=== PATIENT | male | born 1970 | race Caucasian/White ===

== ENCOUNTER 2017-02-02 22:49 | Emergency (ER) | payer MEDICAID ==
[~2017-02-02 22:49] MED LIST: ATA25 PO; ATI1 PO; ATIVAN0.5 M1; ATIVAN0.5 M1 PO; CELEXA10 MG; COZ25 PO; COZ50 PO; DIL100 PO; DILANTIN100 MG; DILANTIN100 MG PO; FOL1 PO; HYDROXYZINE HCL25 MG PO; KEP500 PO; KEPPRA500 MG PO; LAC PO; LEVAQUIN750 MG PO; LIB25 PO; LORAZEPAM1 MG PO; LOSARTAN POTASS25 M1 PO; MOTRIN800 MG PO; OMEPRAZOLE40 M1 PO; PHENYTOIN100 M1 PO; PRI20; PRI20 PO; PRILOSEC20 MG PO; PROAIR HFA0.09 MG/A1; PROVENTIL0.09 MG/A1; RANITIDINE 7575 MG PO; RANITIDINE75 MG PO; THI100 PO; ZES10 PO
[2017-02-03 06:20] VITALS: BP 117/77
== END 2017-02-03 06:20 | disposition home or self-care (01) ==
LOC: ED 22:49
DX: F10.229 Alcohol dependence with intoxication, unspecified (principal); I10 Essential (primary) hypertension

== ENCOUNTER 2017-02-14 18:42 | Emergency (ER) | payer MEDICAID ==
[~2017-02-14] VITALS: Ht 180.3 cm; Wt 70.8 kg
[2017-02-14 19:32] LABS: BASOPHIL % 1.1 % (0-2)
[2017-02-14 19:34] LABS: PLATELET COUNT 76 x10^3mcL (130-400); RED CELL DISTRIBUTION WIDTH 15.2 % (11.5-14.5)
[2017-02-14 19:38] LABS: CALCIUM 8.1 mg/dL (8.5-10.1); CARBON DIOXIDE 28.2 mmol/L (21-32); CHLORIDE SERUM 97 mmol/L (98-107); CREATININE SERUM 0.8 mg/dL (0.7-1.3); GFR1 > 60 mL/min; GLUCOSE SERUM 84 mg/dL (74-106); POTASSIUM SERUM 3.8 mmol/L (3.5-5.1); SODIUM SERUM 135 mmol/L (136-145)
[2017-02-14 19:43] LABS: ALBUMIN 4.1 g/dL (3.4-5.0); ALKALINE PHOSPHATASE 103 U/L (46-116); ALT/SGPT 102 U/L (16-63); BILIRUBIN TOTAL 0.59 mg/dL (0.20-1.00); LIPASE 736 IU/L (73-393); MAGNESIUM 2.1 mg/dL (1.8-2.4); TOTAL PROTEIN, SERUM 7.4 g/dL (6.4-8.2)
[2017-02-14 20:33] LABS: AST/SGOT 284 U/L (15-37)
[2017-02-15 00:49] VITALS: BP 109/72
== END 2017-02-15 00:49 | disposition home or self-care (01) ==
LOC: ED 18:42
PROVIDERS: Emergency Medicine
DX: F10.129 Alcohol abuse with intoxication, unspecified (principal); G40.909 Epilepsy, unspecified, not intractable, without status epilepticus; G89.29 Other chronic pain; D61.818 Other pancytopenia; K21.9 Gastro-esophageal reflux disease without esophagitis; I10 Essential (primary) hypertension; J45.909 Unspecified asthma, uncomplicated; K29.70 Gastritis, unspecified, without bleeding
CPT/HCPCS: J1165; J2405; J7030

== ENCOUNTER 2017-02-27 21:25 | Inpatient (IN) | payer MEDICAID ==
[~2017-02-27] VITALS: Ht 180.3 cm; Wt 70.3 kg
[2017-02-27 22:20] LABS: BASOPHIL % 1.8 % (0-2); PLATELET COUNT 208 x10^3mcL (130-400)
[2017-02-27 22:21] LABS: RED CELL DISTRIBUTION WIDTH 15.3 % (11.5-14.5)
[2017-02-27 22:34] LABS: ALBUMIN 3.6 g/dL (3.4-5.0); ALKALINE PHOSPHATASE 109 U/L (46-116); ALT/SGPT 125 U/L (16-63); AST/SGOT 200 U/L (15-37); BILIRUBIN TOTAL 0.7 mg/dL (0.20-1.00); CALCIUM 8.5 mg/dL (8.5-10.1); CARBON DIOXIDE 27.4 mmol/L (21-32); CHLORIDE SERUM 101 mmol/L (98-107); CREATININE SERUM 0.8 mg/dL (0.7-1.3); GFR1 > 60 mL/min; GLUCOSE SERUM 83 mg/dL (74-106); POTASSIUM SERUM 3.7 mmol/L (3.5-5.1); SODIUM SERUM 141 mmol/L (136-145); TOTAL PROTEIN, SERUM 6.8 g/dL (6.4-8.2)
[2017-02-27 22:38] LABS: CK-MB 0.9 ng/mL (0-3.6)
[2017-02-28] VITALS (7 sets, daily range): BP systolic 136–154; BP diastolic 91–108; Ht 180.3 cm; Wt 70.3 kg
[2017-02-28 00:10] LABS: CHOLESTEROL/HDL RATIO 1.9
[2017-02-28 00:11] LABS: FREE T4 0.79 ng/dL (0.76-1.46); T4(THYROXINE) 5.7 ug/dL (4.7-13.3)
[2017-02-28 00:16] LABS: UA SPECIFIC GRAVITY 1.015 (1.005-1.035); microscopic required? YES; urine erythrocyte NEGATIVE (NEGATIVE)
[2017-02-28 00:32] LABS: AMPHETAMINE QUAL UR NONE DETECTED (NEG <=1000)
[2017-02-28 06:13] LABS: PLATELET COUNT 216 x10^3mcL (130-400)
[2017-02-28 06:21] LABS: CARBON DIOXIDE 29.3 mmol/L (21-32); CHLORIDE SERUM 100 mmol/L (98-107); CREATININE SERUM 0.7 mg/dL (0.7-1.3); GFR1 > 60 mL/min; GLUCOSE SERUM 80 mg/dL (74-106); MAGNESIUM 1.9 mg/dL (1.8-2.4); PHOSPHOROUS 3.9 mg/dL (2.5-4.9); POTASSIUM SERUM 3.7 mmol/L (3.5-5.1); SODIUM SERUM 141 mmol/L (136-145)
[2017-02-28 06:28] LABS: RED CELL DISTRIBUTION WIDTH 14.9 % (11.5-14.5)
[2017-02-28 10:32] LABS: T3 TOTAL 1.29 ng/mL
[2017-03-01 05:38] VITALS: BP 132/96
[2017-03-01 06:21] LABS: CALCIUM 9.2 mg/dL (8.5-10.1); CARBON DIOXIDE 27.9 mmol/L (21-32); CHLORIDE SERUM 98 mmol/L (98-107); CREATININE SERUM 0.7 mg/dL (0.7-1.3); GFR1 > 60 mL/min; GLUCOSE SERUM 78 mg/dL (74-106); MAGNESIUM 1.7 mg/dL (1.8-2.4); PHOSPHOROUS 4.3 mg/dL (2.5-4.9); POTASSIUM SERUM 3.4 mmol/L (3.5-5.1); SODIUM SERUM 137 mmol/L (136-145)
[2017-03-01 06:25] LABS: PLATELET COUNT 188 x10^3mcL (130-400)
[2017-03-01 06:26] LABS: RED CELL DISTRIBUTION WIDTH 15.2 % (11.5-14.5)
[2017-03-01 08:35] VITALS: BP 145/73
[2017-03-01 14:26] VITALS: BP 144/102
[2017-03-01 15:39] VITALS: BP 139/89
== END 2017-03-01 15:50 | disposition home or self-care (01) | DRG 775 ==
LOC: ED 21:25 → DU 23:11
PROVIDERS: Emergency Medicine; Family Medicine; ADMIT Family Medicine
DX: F10.129 Alcohol abuse with intoxication, unspecified (principal); G92 Toxic encephalopathy; K85.90 Acute pancreatitis without necrosis or infection, unspecified; K70.30 Alcoholic cirrhosis of liver without ascites; G40.909 Epilepsy, unspecified, not intractable, without status epilepticus; K21.9 Gastro-esophageal reflux disease without esophagitis; F32.9 Major depressive disorder, single episode, unspecified; I10 Essential (primary) hypertension; D64.9 Anemia, unspecified; J45.909 Unspecified asthma, uncomplicated; Z68.21 Body mass index [BMI] 21.0-21.9, adult
CPT/HCPCS: 80307; 83880; 84439; C9113; G0480; J0696; J2060; J3411; J3475; J3490; J7030; Q0092

== ENCOUNTER 2017-03-02 01:19 | Emergency (ER) | payer MEDICAID | END 2017-03-02 02:37 | disposition left against medical advice (07) | LOC: ED 01:19 | DX: Z53.21 Procedure and treatment not carried out due to patient leaving prior to being seen by health care provider (principal) ==

== ENCOUNTER 2017-03-11 15:23 | Emergency (ER) | payer MEDICAID ==
[~2017-03-11] VITALS: Ht 180.3 cm; Wt 68.0 kg
[2017-03-11 16:28] LABS: CALCIUM 8.3 mg/dL (8.5-10.1); CARBON DIOXIDE 24.1 mmol/L (21-32); CHLORIDE SERUM 99 mmol/L (98-107); CREATININE SERUM 0.8 mg/dL (0.7-1.3); GFR1 > 60 mL/min; GLUCOSE SERUM 81 mg/dL (74-106); POTASSIUM SERUM 4.2 mmol/L (3.5-5.1); SODIUM SERUM 141 mmol/L (136-145)
[2017-03-11 16:32] LABS: RED CELL DISTRIBUTION WIDTH 14.5 % (11.5-14.5)
[2017-03-11 16:34] LABS: PLATELET COUNT 84 x10^3mcL (130-400)
[2017-03-11 16:36] LABS: ALBUMIN 4.1 g/dL (3.4-5.0); ALKALINE PHOSPHATASE 117 U/L (46-116); ALT/SGPT 103 U/L (16-63); AMYLASE 97 U/L (25-115); AST/SGOT 186 U/L (15-37); BILIRUBIN TOTAL 0.63 mg/dL (0.20-1.00); LIPASE 621 IU/L (73-393); TOTAL PROTEIN, SERUM 7.5 g/dL (6.4-8.2)
[2017-03-11 16:43] VITALS: BP 158/78
[2017-03-11 18:14] LABS: BAND NEUTROPHIL 2 % (0-10); SEGMENTED NEUTROPHILS 74 % (37-75)
[2017-03-11 18:15] LABS: MONOCYTE 7 % (0-7)
[2017-03-11 18:16] LABS: rbc morphology (normal/abnorm) NORMAL (NORMAL)
[2017-03-11 18:17] LABS: PLATELET MORPHOLOGY PLATELETS DECREASED
== END 2017-03-11 16:43 | disposition home or self-care (01) ==
LOC: ED 15:23
PROVIDERS: Specialist
DX: F10.129 Alcohol abuse with intoxication, unspecified (principal); K85.90 Acute pancreatitis without necrosis or infection, unspecified; K21.9 Gastro-esophageal reflux disease without esophagitis; I10 Essential (primary) hypertension; J45.909 Unspecified asthma, uncomplicated

== ENCOUNTER 2017-03-11 20:55 | Emergency (ER) | payer MEDICAID ==
[2017-03-12 03:31] LABS: BASOPHIL % 0.5 % (0-2); PLATELET COUNT 58 x10^3mcL (130-400)
[2017-03-12 03:56] LABS: CALCIUM 8.2 mg/dL (8.5-10.1); CARBON DIOXIDE 28.5 mmol/L (21-32); CHLORIDE SERUM 99 mmol/L (98-107); CREATININE SERUM 0.9 mg/dL (0.7-1.3); GFR1 > 60 mL/min; GLUCOSE SERUM 173 mg/dL (74-106); SODIUM SERUM 138 mmol/L (136-145)
[2017-03-12 04:00] LABS: ALBUMIN 3.9 g/dL (3.4-5.0); ALKALINE PHOSPHATASE 111 U/L (46-116); ALT/SGPT 84 U/L (16-63); AST/SGOT 136 U/L (15-37); BILIRUBIN TOTAL 0.54 mg/dL (0.20-1.00); TOTAL PROTEIN, SERUM 7.1 g/dL (6.4-8.2)
[2017-03-12 04:20] VITALS: BP 120/63
== END 2017-03-12 04:20 | disposition home or self-care (01) ==
LOC: ED 20:55
PROVIDERS: Emergency Medicine
DX: F41.9 Anxiety disorder, unspecified (principal); I10 Essential (primary) hypertension; K21.9 Gastro-esophageal reflux disease without esophagitis; F10.20 Alcohol dependence, uncomplicated; K74.60 Unspecified cirrhosis of liver; Z87.19 Personal history of other diseases of the digestive system

== ENCOUNTER 2017-03-19 07:20 | Emergency (ER) | payer MEDICAID ==
[2017-03-19 14:45] VITALS: BP 99/64
== END 2017-03-19 14:45 | disposition home or self-care (01) ==
LOC: ED 07:20
DX: F10.239 Alcohol dependence with withdrawal, unspecified (principal); K21.9 Gastro-esophageal reflux disease without esophagitis; I10 Essential (primary) hypertension; J45.909 Unspecified asthma, uncomplicated; Z87.11 Personal history of peptic ulcer disease; Z87.19 Personal history of other diseases of the digestive system
CPT/HCPCS: J2060

== ENCOUNTER 2017-03-24 13:02 | Emergency (ER) | payer MEDICAID ==
[2017-03-24 15:38] VITALS: BP 131/80
== END 2017-03-24 15:38 | disposition home or self-care (01) ==
LOC: ED 13:02
DX: F10.239 Alcohol dependence with withdrawal, unspecified (principal); F10.229 Alcohol dependence with intoxication, unspecified

== ENCOUNTER 2017-03-25 12:50 | Inpatient (IN) | payer MEDICAID ==
[~2017-03-25] VITALS: Ht 180.3 cm; Wt 76.2 kg
[2017-03-25 13:46] LABS: CALCIUM 8.3 mg/dL (8.5-10.1); CARBON DIOXIDE 28.5 mmol/L (21-32); CHLORIDE SERUM 101 mmol/L (98-107); CREATININE SERUM 0.6 mg/dL (0.7-1.3); GFR1 > 60 mL/min; GLUCOSE SERUM 94 mg/dL (74-106); POTASSIUM SERUM 3.3 mmol/L (3.5-5.1); SODIUM SERUM 139 mmol/L (136-145)
[2017-03-25 13:56] LABS: ALBUMIN 3.7 g/dL (3.4-5.0); ALKALINE PHOSPHATASE 127 U/L (46-116); ALT/SGPT 81 U/L (16-63); AST/SGOT 209 U/L (15-37); BASOPHIL % 0.6 % (0-2); BILIRUBIN TOTAL 0.55 mg/dL (0.20-1.00); LIPASE 1131 IU/L (73-393); TOTAL PROTEIN, SERUM 6.8 g/dL (6.4-8.2)
[2017-03-25 14:14] LABS: PLATELET COUNT 62 x10^3mcL (130-400); RED CELL DISTRIBUTION WIDTH 16.1 % (11.5-14.5)
[2017-03-25 16:18] LABS: T3 TOTAL 0.92 ng/mL
[2017-03-25 16:32] LABS: FREE T4 0.77 ng/dL (0.76-1.46); T4(THYROXINE) 5.8 ug/dL (4.7-13.3)
[2017-03-25 16:46] LABS: MAGNESIUM 2.1 mg/dL (1.8-2.4); PHOSPHOROUS 4.3 mg/dL (2.5-4.9)
[2017-03-25 16:47] LABS: CHOLESTEROL/HDL RATIO 1.8
[2017-03-25 18:28] LABS: microscopic required? NO
[2017-03-25 18:59] LABS: UA SPECIFIC GRAVITY <=1.005 (1.005-1.035); urine erythrocyte NEGATIVE (NEGATIVE)
[2017-03-25 20:30] LABS: AMPHETAMINE QUAL UR NONE DETECTED (NEG <=1000)
[2017-03-26 06:45] LABS: PLATELET COUNT 54 x10^3mcL (130-400); RED CELL DISTRIBUTION WIDTH 16.4 % (11.5-14.5)
[2017-03-26 06:48] LABS: CALCIUM 8.4 mg/dL (8.5-10.1); CARBON DIOXIDE 28.9 mmol/L (21-32); CHLORIDE SERUM 104 mmol/L (98-107); CREATININE SERUM 0.7 mg/dL (0.7-1.3); GFR1 > 60 mL/min; GLUCOSE SERUM 81 mg/dL (74-106); MAGNESIUM 1.6 mg/dL (1.8-2.4); PHOSPHOROUS 3.9 mg/dL (2.5-4.9); POTASSIUM SERUM 4.5 mmol/L (3.5-5.1); SODIUM SERUM 141 mmol/L (136-145)
[2017-03-26 10:27] LABS: SEGMENTED NEUTROPHILS 70 % (37-75)
[2017-03-26 10:28] LABS: BAND NEUTROPHIL 1 % (0-10); BASOPHIL 0 % (0-2); MONOCYTE 6 % (0-7)
[2017-03-26 10:31] LABS: PLATELET MORPHOLOGY PLATELETS DECREASED; rbc morphology (normal/abnorm) ABNORMAL (NORMAL)
[2017-03-26 10:33] LABS: target cell (codocyte) 1+
[2017-03-26 13:31] VITALS: BP 145/92
[2017-03-26 13:49] VITALS: BP 145/92
[2017-03-26 16:19] VITALS: BP 124/94
[2017-03-26 21:48] VITALS: BP 121/92
[2017-03-27 05:57] VITALS: BP 144/99
[2017-03-27 06:33] LABS: ALKALINE PHOSPHATASE 108 U/L (46-116); ALT/SGPT 84 U/L (16-63); AST/SGOT 149 U/L (15-37); BILIRUBIN TOTAL 1.4 mg/dL (0.20-1.00); CALCIUM 9.6 mg/dL (8.5-10.1); CARBON DIOXIDE 27.4 mmol/L (21-32); CHLORIDE SERUM 95 mmol/L (98-107); CREATININE SERUM 0.5 mg/dL (0.7-1.3); GFR1 > 60 mL/min; GLUCOSE SERUM 80 mg/dL (74-106); LIPASE 574 IU/L (73-393); MAGNESIUM 3.4 mg/dL (1.8-2.4); PHOSPHOROUS 3.8 mg/dL (2.5-4.9); POTASSIUM SERUM 4.3 mmol/L (3.5-5.1); SODIUM SERUM 134 mmol/L (136-145); TOTAL PROTEIN, SERUM 7.9 g/dL (6.4-8.2)
[2017-03-27 06:41] LABS: BASOPHIL % 0.6 % (0-2)
[2017-03-27 06:43] LABS: PLATELET COUNT 50 x10^3mcL (130-400); RED CELL DISTRIBUTION WIDTH 15.5 % (11.5-14.5)
[2017-03-27 06:47] LABS: AMYLASE 119 U/L (25-115)
[2017-03-27 09:36] VITALS: BP 116/96
[2017-03-27 13:05] VITALS: BP 133/98
[2017-03-27 16:53] VITALS: BP 130/90
[2017-03-27 21:33] VITALS: BP 128/85
[2017-03-28 05:37] VITALS: BP 135/96
[2017-03-28 06:40] LABS: BILIRUBIN TOTAL 1.1 mg/dL (0.20-1.00); CALCIUM 9.2 mg/dL (8.5-10.1); CARBON DIOXIDE 26.4 mmol/L (21-32); CHLORIDE SERUM 100 mmol/L (98-107); CREATININE SERUM 0.7 mg/dL (0.7-1.3); GFR1 > 60 mL/min; GLUCOSE SERUM 99 mg/dL (74-106); MAGNESIUM 1.9 mg/dL (1.8-2.4); POTASSIUM SERUM 3.8 mmol/L (3.5-5.1); SODIUM SERUM 139 mmol/L (136-145)
[2017-03-28 07:36] LABS: BASOPHIL % 0.7 % (0-2)
[2017-03-28 07:37] LABS: PLATELET COUNT 57 x10^3mcL (130-400); RED CELL DISTRIBUTION WIDTH 15.5 % (11.5-14.5)
[2017-03-28 09:18] VITALS: BP 131/94
[2017-03-28] MEDS ORDERED: LORAZEPAM2 MG PO (13:37)
[2017-03-28] MEDS ORDERED: NATURE'S BLEND F1 MG PO (13:38)
[2017-03-28] MEDS ORDERED: B-1100 MG PO (13:38)
[2017-03-28 13:47] VITALS: BP 131/94
== END 2017-03-28 18:13 | disposition home or self-care (01) | DRG 816 ==
LOC: ED 12:50 → DU 03-26 12:16 → MU 03-27 15:33
PROVIDERS: Emergency Medicine; Family Medicine; ADMIT Family Medicine
DX: T51.0X1A Toxic effect of ethanol, accidental (unintentional), initial encounter (principal); G92 Toxic encephalopathy; K85.90 Acute pancreatitis without necrosis or infection, unspecified; D61.818 Other pancytopenia; F10.229 Alcohol dependence with intoxication, unspecified; F10.239 Alcohol dependence with withdrawal, unspecified; K70.30 Alcoholic cirrhosis of liver without ascites; I10 Essential (primary) hypertension; J45.909 Unspecified asthma, uncomplicated; E87.6 Hypokalemia; E78.00 Pure hypercholesterolemia, unspecified; K21.9 Gastro-esophageal reflux disease without esophagitis; G40.909 Epilepsy, unspecified, not intractable, without status epilepticus; F17.210 Nicotine dependence, cigarettes, uncomplicated; Z68.23 Body mass index [BMI] 23.0-23.9, adult; Z59.0 Homelessness; Y92.9 Unspecified place or not applicable; Y90.8 Blood alcohol level of 240 mg/100 ml or more
CPT/HCPCS: 80307; 84439; C9113; G0480; J1885; J2060; J2270; J2405; J2550; J3475; J7030; Q0092

== ENCOUNTER 2017-04-10 16:48 | Emergency (ER) | payer MEDICAID ==
[~2017-04-10] VITALS: Ht 180.3 cm; Wt 77.1 kg
[~2017-04-10 16:48] MED LIST changes: +B-1100 MG PO; +LORAZEPAM2 MG PO; +NATURE'S BLEND F1 MG PO
[2017-04-10 20:01] VITALS: BP 123/84
== END 2017-04-10 20:01 | disposition home or self-care (01) ==
LOC: ED 16:48
DX: H66.92 Otitis media, unspecified, left ear (principal); I10 Essential (primary) hypertension; K21.9 Gastro-esophageal reflux disease without esophagitis; F41.9 Anxiety disorder, unspecified; F32.1 Major depressive disorder, single episode, moderate; K74.60 Unspecified cirrhosis of liver
CPT/HCPCS: G0480

== ENCOUNTER 2017-04-13 18:25 | Emergency (ER) | payer MEDICAID ==
[2017-04-13 18:52] VITALS: BP 122/79
== END 2017-04-13 20:15 | disposition left against medical advice (07) ==
LOC: ED 18:25
DX: R53.1 Weakness (principal); F10.129 Alcohol abuse with intoxication, unspecified; K74.60 Unspecified cirrhosis of liver; K21.9 Gastro-esophageal reflux disease without esophagitis; F41.9 Anxiety disorder, unspecified; F32.1 Major depressive disorder, single episode, moderate; I10 Essential (primary) hypertension; Z79.899 Other long term (current) drug therapy

== ENCOUNTER 2017-04-15 21:08 | Emergency (ER) | payer MEDICAID ==
[~2017-04-15] VITALS: Ht 180.3 cm; Wt 77.1 kg
[2017-04-15 21:37] LABS: BASOPHIL % 0.7 % (0-2)
[2017-04-15 21:56] LABS: CALCIUM 8.5 mg/dL (8.5-10.1); CARBON DIOXIDE 26.7 mmol/L (21-32); CHLORIDE SERUM 98 mmol/L (98-107); CREATININE SERUM 0.9 mg/dL (0.7-1.3); GFR1 > 60 mL/min; GLUCOSE SERUM 79 mg/dL (74-106); SODIUM SERUM 137 mmol/L (136-145)
[2017-04-15 22:01] LABS: ALBUMIN 4.1 g/dL (3.4-5.0); ALKALINE PHOSPHATASE 107 U/L (46-116); ALT/SGPT 72 U/L (16-63); AST/SGOT 152 U/L (15-37); BILIRUBIN TOTAL 0.55 mg/dL (0.20-1.00); TOTAL PROTEIN, SERUM 7.4 g/dL (6.4-8.2)
[2017-04-15 22:05] LABS: PLATELET COUNT 41 x10^3mcL (130-400)
[2017-04-15 23:32] VITALS: BP 120/73
== END 2017-04-15 23:32 | disposition home or self-care (01) ==
LOC: ED 21:08
PROVIDERS: Emergency Medicine
DX: F10.229 Alcohol dependence with intoxication, unspecified (principal); R06.00 Dyspnea, unspecified
CPT/HCPCS: 36415; Q0092

== ENCOUNTER 2017-05-09 15:45 | Emergency (ER) | payer MEDICAID ==
[~2017-05-09] VITALS: Ht 185.4 cm; Wt 79.4 kg
[2017-05-10 02:43] VITALS: BP 122/71
== END 2017-05-10 02:43 | disposition home or self-care (01) ==
LOC: ED 15:45
DX: F10.129 Alcohol abuse with intoxication, unspecified (principal); J45.909 Unspecified asthma, uncomplicated; I10 Essential (primary) hypertension; G40.909 Epilepsy, unspecified, not intractable, without status epilepticus; F99 Mental disorder, not otherwise specified; Z59.0 Homelessness; Z79.899 Other long term (current) drug therapy
CPT/HCPCS: J7030

== ENCOUNTER 2017-05-30 10:19 | Emergency (ER) | payer MEDICAID ==
[~2017-05-30] VITALS: Ht 188 cm; Wt 81.6 kg
[2017-05-30 11:44] VITALS: BP 96/54
== END 2017-05-30 11:44 | disposition home or self-care (01) ==
LOC: ED 10:19
DX: F10.129 Alcohol abuse with intoxication, unspecified (principal); I10 Essential (primary) hypertension; J45.909 Unspecified asthma, uncomplicated

== ENCOUNTER 2017-06-03 20:10 | Emergency (ER) | payer MEDICAID ==
[2017-06-03 20:20] VITALS: BP 101/64
== END 2017-06-03 21:09 | disposition left against medical advice (07) ==
LOC: ED 20:10
DX: F10.20 Alcohol dependence, uncomplicated (principal); J45.909 Unspecified asthma, uncomplicated; I10 Essential (primary) hypertension; F99 Mental disorder, not otherwise specified

== ENCOUNTER 2017-06-10 19:44 | Emergency (ER) | payer MEDICAID ==
[2017-06-10 21:03] VITALS: BP 116/64
== END 2017-06-10 21:05 | disposition left against medical advice (07) ==
LOC: ED 19:44
DX: F10.20 Alcohol dependence, uncomplicated (principal); J45.909 Unspecified asthma, uncomplicated; I10 Essential (primary) hypertension; K21.9 Gastro-esophageal reflux disease without esophagitis; K74.60 Unspecified cirrhosis of liver
CPT/HCPCS: G0480

== ENCOUNTER 2017-06-16 01:10 | Emergency (ER) | payer MEDICAID ==
[2017-06-16 09:36] VITALS: BP 120/69
== END 2017-06-16 09:41 | disposition home or self-care (01) ==
LOC: ED 01:10
DX: F10.129 Alcohol abuse with intoxication, unspecified (principal); R11.10 Vomiting, unspecified; E86.0 Dehydration; K86.1 Other chronic pancreatitis; K21.9 Gastro-esophageal reflux disease without esophagitis; K74.60 Unspecified cirrhosis of liver; I10 Essential (primary) hypertension; J45.909 Unspecified asthma, uncomplicated; Z87.11 Personal history of peptic ulcer disease; Z87.19 Personal history of other diseases of the digestive system
CPT/HCPCS: 82962; J1885; J2060; J2405; J3411; J3475; J3490; J7030

== ENCOUNTER 2017-06-16 14:53 | Emergency (ER) | payer MEDICAID ==
[~2017-06-16] VITALS: Ht 177.8 cm; Wt 64.4 kg
[2017-06-16 17:33] VITALS: BP 130/77
== END 2017-06-16 20:03 | disposition home or self-care (01) ==
LOC: ED 14:53
DX: F10.129 Alcohol abuse with intoxication, unspecified (principal); K21.9 Gastro-esophageal reflux disease without esophagitis; J45.909 Unspecified asthma, uncomplicated; I10 Essential (primary) hypertension; K74.60 Unspecified cirrhosis of liver; Z87.19 Personal history of other diseases of the digestive system
CPT/HCPCS: J3490

== ENCOUNTER 2017-06-25 14:55 | Emergency (ER) | payer MEDICAID ==
[~2017-06-25] VITALS: Ht 180.3 cm; Wt 68.0 kg
[2017-06-25 17:06] LABS: CALCIUM 8.5 mg/dL (8.5-10.1); CARBON DIOXIDE 28.1 mmol/L (21-32); CHLORIDE SERUM 107 mmol/L (98-107); CREATININE SERUM 0.7 mg/dL (0.7-1.3); GFR1 > 60 mL/min; GLUCOSE SERUM 84 mg/dL (74-106); SODIUM SERUM 148 mmol/L (136-145)
[2017-06-25 17:08] LABS: ALBUMIN 3.9 g/dL (3.4-5.0); ALKALINE PHOSPHATASE 81 U/L (46-116); ALT/SGPT 25 U/L (16-63); AST/SGOT 64 U/L (15-37); BILIRUBIN TOTAL 0.5 mg/dL (0.20-1.00); LIPASE 447 IU/L (73-393); TOTAL PROTEIN, SERUM 7.4 g/dL (6.4-8.2)
[2017-06-25 17:13] LABS: PLATELET COUNT 77 x10^3mcL (130-400); RED CELL DISTRIBUTION WIDTH 15.8 % (11.5-14.5)
[2017-06-25 17:25] LABS: BAND NEUTROPHIL 0 % (0-10); BASOPHIL 0 % (0-2); MONOCYTE 10 % (0-7); SEGMENTED NEUTROPHILS 38 % (37-75); rbc morphology (normal/abnorm) ABNORMAL (NORMAL)
[2017-06-25 18:30] VITALS: BP 111/84
== END 2017-06-25 18:30 | disposition left against medical advice (07) ==
LOC: ED 14:55
PROVIDERS: Emergency Medicine Emergency Medical Services
DX: F10.129 Alcohol abuse with intoxication, unspecified (principal); D61.818 Other pancytopenia; I10 Essential (primary) hypertension; J45.909 Unspecified asthma, uncomplicated; K21.9 Gastro-esophageal reflux disease without esophagitis
CPT/HCPCS: G0480; J3411; J3475; J3490; J7030

== ENCOUNTER 2017-07-12 22:50 | Emergency (ER) | payer MEDICAID ==
[2017-07-12 23:41] LABS: BASOPHIL % 4.1 % (0-2); PLATELET COUNT 490 x10^3mcL (130-400)
[2017-07-12 23:47] LABS: CALCIUM 8.7 mg/dL (8.5-10.1); CARBON DIOXIDE 23.5 mmol/L (21-32); CHLORIDE SERUM 99 mmol/L (98-107); GFR1 > 60 mL/min; GLUCOSE SERUM 160 mg/dL (74-106); POTASSIUM SERUM 4.2 mmol/L (3.5-5.1); SODIUM SERUM 137 mmol/L (136-145)
[2017-07-12 23:53] LABS: ALBUMIN 4.4 g/dL (3.4-5.0); ALKALINE PHOSPHATASE 75 U/L (46-116); ALT/SGPT 62 U/L (16-63); AMYLASE 61 U/L (25-115); AST/SGOT 54 U/L (15-37); BILIRUBIN TOTAL 0.3 mg/dL (0.20-1.00); LIPASE 197 IU/L (73-393)
[2017-07-12 23:55] LABS: TOTAL PROTEIN, SERUM 8.3 g/dL (6.4-8.2)
[2017-07-13 04:09] VITALS: BP 128/90
== END 2017-07-13 04:09 | disposition home or self-care (01) ==
LOC: ED 22:50
PROVIDERS: Emergency Medicine
DX: F10.129 Alcohol abuse with intoxication, unspecified (principal); I10 Essential (primary) hypertension; J45.909 Unspecified asthma, uncomplicated; Z79.899 Other long term (current) drug therapy
CPT/HCPCS: 36415; G0480

== ENCOUNTER 2017-07-21 11:10 | Emergency (ER) | payer MEDICAID ==
[2017-07-21 13:40] VITALS: BP 116/80
== END 2017-07-21 11:14 | disposition home or self-care (01) ==
LOC: ED 11:10
DX: F10.229 Alcohol dependence with intoxication, unspecified (principal); M79.1 Myalgia
CPT/HCPCS: J1885

== ENCOUNTER 2017-07-23 15:25 | Emergency (ER) | payer MEDICAID ==
[~2017-07-23] VITALS: Ht 180.3 cm; Wt 68.0 kg
[2017-07-23 21:43] VITALS: BP 113/78
== END 2017-07-23 22:00 | disposition home or self-care (01) ==
LOC: ED 15:25
DX: F10.129 Alcohol abuse with intoxication, unspecified (principal); I10 Essential (primary) hypertension; K74.60 Unspecified cirrhosis of liver; K21.9 Gastro-esophageal reflux disease without esophagitis; F41.9 Anxiety disorder, unspecified; F32.9 Major depressive disorder, single episode, unspecified; Z87.11 Personal history of peptic ulcer disease

== ENCOUNTER 2017-07-27 12:00 | Emergency (ER) | payer MEDICAID ==
[~2017-07-27] VITALS: Ht 180.3 cm; Wt 72.6 kg
[2017-07-27 13:18] VITALS: BP 123/71
== END 2017-07-27 13:31 | disposition home or self-care (01) ==
LOC: ED 12:00
DX: F10.229 Alcohol dependence with intoxication, unspecified (principal); I10 Essential (primary) hypertension; J45.909 Unspecified asthma, uncomplicated; K21.9 Gastro-esophageal reflux disease without esophagitis; Z87.11 Personal history of peptic ulcer disease; Z90.49 Acquired absence of other specified parts of digestive tract

== ENCOUNTER 2017-07-30 10:51 | Emergency (ER) | payer MEDICAID ==
[2017-07-30 10:52] VITALS: BP 142/86
== END 2017-07-30 13:41 | disposition home or self-care (01) ==
LOC: ED 10:51
DX: F10.129 Alcohol abuse with intoxication, unspecified (principal); K21.9 Gastro-esophageal reflux disease without esophagitis; R07.89 Other chest pain; R53.1 Weakness; R20.0 Anesthesia of skin; J45.909 Unspecified asthma, uncomplicated; I10 Essential (primary) hypertension; Z59.0 Homelessness
CPT/HCPCS: Q0162

== ENCOUNTER 2017-08-19 09:51 | Emergency (ER) | payer MEDICAID ==
[~2017-08-19] VITALS: Ht 182.9 cm; Wt 72.6 kg
[2017-08-19 09:58] VITALS: BP 139/97
== END 2017-08-19 12:48 | disposition home or self-care (01) ==
LOC: ED 09:51
DX: H10.32 Unspecified acute conjunctivitis, left eye (principal); R05 Cough; F10.10 Alcohol abuse, uncomplicated; K21.9 Gastro-esophageal reflux disease without esophagitis; I10 Essential (primary) hypertension; Z87.19 Personal history of other diseases of the digestive system

== ENCOUNTER 2017-08-25 22:26 | Emergency (ER) | payer MEDICAID ==
[2017-08-26 00:38] VITALS: BP 107/70
== END 2017-08-26 00:38 | disposition home or self-care (01) ==
LOC: ED 22:26
DX: F10.239 Alcohol dependence with withdrawal, unspecified (principal); I10 Essential (primary) hypertension; K21.9 Gastro-esophageal reflux disease without esophagitis; Z59.0 Homelessness

== ENCOUNTER 2017-08-31 23:22 | Emergency (ER) | payer MEDICAID ==
[~2017-08-31] VITALS: Ht 177.8 cm; Wt 72.6 kg
[2017-09-01 06:38] VITALS: BP 109/70
== END 2017-09-01 06:38 | disposition home or self-care (01) ==
LOC: ED 23:22
DX: F10.10 Alcohol abuse, uncomplicated (principal); M79.1 Myalgia; J45.909 Unspecified asthma, uncomplicated; I10 Essential (primary) hypertension; Z87.19 Personal history of other diseases of the digestive system

== ENCOUNTER 2017-09-04 21:46 | Emergency (ER) | payer MEDICAID ==
[2017-09-04 22:15] VITALS: BP 136/100
== END 2017-09-04 22:49 | disposition left against medical advice (07) ==
LOC: ED 21:46
DX: Z53.21 Procedure and treatment not carried out due to patient leaving prior to being seen by health care provider (principal)

== ENCOUNTER 2017-09-18 22:26 | Emergency (ER) | payer MEDICAID ==
[~2017-09-18] VITALS: Ht 180.3 cm; Wt 79.4 kg
[2017-09-18 23:30] LABS: microscopic required? NO
[2017-09-18 23:44] LABS: PLATELET COUNT 152 x10^3mcL (130-400)
[2017-09-18 23:46] LABS: UA SPECIFIC GRAVITY <=1.005 (1.005-1.035); urine erythrocyte NEGATIVE (NEGATIVE)
[2017-09-18 23:48] LABS: RED CELL DISTRIBUTION WIDTH 16.3 % (11.5-14.5)
[2017-09-18 23:50] LABS: CALCIUM 8.5 mg/dL (8.5-10.1); CARBON DIOXIDE 30.1 mmol/L (21-32); CHLORIDE SERUM 92 mmol/L (98-107); CREATININE SERUM 0.7 mg/dL (0.7-1.3); GFR1 > 60 mL/min; GLUCOSE SERUM 95 mg/dL (74-106); POTASSIUM SERUM 4.4 mmol/L (3.5-5.1); SODIUM SERUM 130 mmol/L (136-145)
[2017-09-19 06:06] VITALS: BP 99/68
== END 2017-09-19 06:06 | disposition home or self-care (01) ==
LOC: ED 22:26
PROVIDERS: Emergency Medicine
DX: F10.129 Alcohol abuse with intoxication, unspecified (principal); G40.909 Epilepsy, unspecified, not intractable, without status epilepticus; I10 Essential (primary) hypertension; J45.909 Unspecified asthma, uncomplicated; K74.60 Unspecified cirrhosis of liver; F41.9 Anxiety disorder, unspecified; F32.9 Major depressive disorder, single episode, unspecified; Z98.890 Other specified postprocedural states
CPT/HCPCS: J3411; J3475; J3490; J7030

== ENCOUNTER 2017-09-27 15:35 | Emergency (ER) | payer MEDICAID ==
[2017-09-27 15:37] VITALS: BP 101/72
== END 2017-09-27 16:47 | disposition left against medical advice (07) ==
LOC: ED 15:35
DX: Z53.21 Procedure and treatment not carried out due to patient leaving prior to being seen by health care provider (principal)

== ENCOUNTER 2017-10-01 13:49 | Emergency (ER) | payer MEDICAID ==
[2017-10-01 13:57] VITALS: BP 103/77
== END 2017-10-01 14:04 | disposition left against medical advice (07) ==
LOC: ED 13:49
DX: Z53.21 Procedure and treatment not carried out due to patient leaving prior to being seen by health care provider (principal)

== ENCOUNTER 2017-10-09 10:05 | Emergency (ER) | payer MEDICAID ==
[2017-10-09 10:41] LABS: BASOPHIL % 0.6 % (0-2); PLATELET COUNT 133 x10^3mcL (130-400)
[2017-10-09 10:43] LABS: RED CELL DISTRIBUTION WIDTH 15.4 % (11.5-14.5)
[2017-10-09 11:27] LABS: ALKALINE PHOSPHATASE 118 U/L (46-116); ALT/SGPT 64 U/L (16-63); AST/SGOT 80 U/L (15-37); BILIRUBIN TOTAL 0.35 mg/dL (0.20-1.00); CALCIUM 8.6 mg/dL (8.5-10.1); CARBON DIOXIDE 26.2 mmol/L (21-32); CHLORIDE SERUM 101 mmol/L (98-107); CREATININE SERUM 0.6 mg/dL (0.7-1.3); GFR1 > 60 mL/min; GLUCOSE SERUM 113 mg/dL (74-106); POTASSIUM SERUM 4.1 mmol/L (3.5-5.1); SODIUM SERUM 140 mmol/L (136-145); TOTAL PROTEIN, SERUM 7.3 g/dL (6.4-8.2)
[2017-10-09 17:34] VITALS: BP 125/91
== END 2017-10-09 17:34 | disposition home or self-care (01) ==
LOC: ED 10:05
PROVIDERS: Emergency Medicine
DX: F10.129 Alcohol abuse with intoxication, unspecified (principal); I10 Essential (primary) hypertension; J45.909 Unspecified asthma, uncomplicated
CPT/HCPCS: G0480; J3411; J3475; J3490; J7030

== ENCOUNTER 2017-10-23 20:10 | Emergency (ER) | payer OTHER ==
[~2017-10-23] VITALS: Ht 185.4 cm; Wt 68.0 kg
[2017-10-24 06:02] VITALS: BP 121/74
== END 2017-10-24 06:02 | disposition home or self-care (01) ==
LOC: ED 20:10
DX: F10.129 Alcohol abuse with intoxication, unspecified (principal); J45.909 Unspecified asthma, uncomplicated; I10 Essential (primary) hypertension; K74.60 Unspecified cirrhosis of liver
CPT/HCPCS: J3411; J3475; J3490; J7030

== ENCOUNTER 2017-10-31 19:19 | Emergency (ER) | payer OTHER ==
[2017-10-31 22:11] LABS: PLATELET COUNT 239 x10^3mcL (130-400)
[2017-10-31 22:12] LABS: BASOPHIL % 3.2 % (0-2)
[2017-10-31 22:41] LABS: CALCIUM 8.5 mg/dL (8.5-10.1); CARBON DIOXIDE 29.8 mmol/L (21-32); CHLORIDE SERUM 103 mmol/L (98-107); CREATININE SERUM 0.7 mg/dL (0.7-1.3); GFR1 > 60 mL/min; GLUCOSE SERUM 102 mg/dL (74-106); POTASSIUM SERUM 3.9 mmol/L (3.5-5.1); SODIUM SERUM 142 mmol/L (136-145)
[2017-11-01 06:56] VITALS: BP 128/70
== END 2017-11-01 06:56 | disposition home or self-care (01) ==
LOC: ED 19:19
PROVIDERS: Emergency Medicine
PROC: 3E033GC Introduction of Other Therapeutic Substance into Peripheral Vein, Percutaneous Approach (ICD-10-PCS; principal; 2017-11-01)
DX: S60.413A Abrasion of left middle finger, initial encounter (principal); X58.XXXA Exposure to other specified factors, initial encounter; Y92.9 Unspecified place or not applicable
CPT/HCPCS: J3411; J3475; J3490; J7030

== ENCOUNTER 2017-11-02 21:17 | Emergency (ER) | payer OTHER ==
[~2017-11-02] VITALS: Ht 182.9 cm; Wt 81.6 kg
[2017-11-02 21:27] VITALS: Ht 182.9 cm; Wt 81.6 kg
[2017-11-02 22:35] LABS: CALCIUM 8.4 mg/dL (8.5-10.1); CARBON DIOXIDE 25.3 mmol/L (21-32); CHLORIDE SERUM 101 mmol/L (98-107); CREATININE SERUM 0.9 mg/dL (0.7-1.3); GFR1 > 60 mL/min; GLUCOSE SERUM 141 mg/dL (74-106); POTASSIUM SERUM 3.9 mmol/L (3.5-5.1); SODIUM SERUM 139 mmol/L (136-145)
[2017-11-02 22:42] LABS: ALBUMIN 3.5 g/dL (3.4-5.0); ALKALINE PHOSPHATASE 155 U/L (46-116); ALT/SGPT 47 U/L (16-63); AST/SGOT 103 U/L (15-37); BILIRUBIN TOTAL 0.34 mg/dL (0.20-1.00)
[2017-11-03 00:20] VITALS: BP 112/72
== END 2017-11-03 00:20 | disposition home or self-care (01) ==
LOC: ED 21:17
PROVIDERS: Specialist
DX: F10.239 Alcohol dependence with withdrawal, unspecified (principal); I10 Essential (primary) hypertension; K21.9 Gastro-esophageal reflux disease without esophagitis; J45.909 Unspecified asthma, uncomplicated; Z59.0 Homelessness

== ENCOUNTER 2017-11-05 20:34 | Emergency (ER) | payer OTHER ==
[~2017-11-05] VITALS: Ht 182.9 cm; Wt 79.8 kg
[2017-11-05 21:32] VITALS: Ht 182.9 cm; Wt 79.8 kg
[2017-11-06 04:03] VITALS: BP 112/83
== END 2017-11-06 04:03 | disposition home or self-care (01) ==
LOC: ED 20:34
DX: J06.9 Acute upper respiratory infection, unspecified (principal); J02.9 Acute pharyngitis, unspecified; R07.89 Other chest pain; F10.129 Alcohol abuse with intoxication, unspecified; I10 Essential (primary) hypertension; J45.909 Unspecified asthma, uncomplicated; K74.60 Unspecified cirrhosis of liver; Z59.0 Homelessness
CPT/HCPCS: Q0092

== ENCOUNTER 2017-11-06 10:18 | Emergency (ER) | payer OTHER ==
[~2017-11-06] VITALS: Ht 182.9 cm; Wt 79.8 kg
[2017-11-06 10:41] VITALS: Ht 182.9 cm; Wt 79.8 kg
[2017-11-06 13:56] VITALS: BP 124/75
== END 2017-11-06 13:56 | disposition home or self-care (01) ==
LOC: ED 10:18
DX: F10.239 Alcohol dependence with withdrawal, unspecified (principal); R56.9 Unspecified convulsions; I10 Essential (primary) hypertension; K21.9 Gastro-esophageal reflux disease without esophagitis; K70.30 Alcoholic cirrhosis of liver without ascites; Z87.19 Personal history of other diseases of the digestive system
CPT/HCPCS: J2060

== ENCOUNTER 2017-11-17 20:35 | Emergency (ER) | payer OTHER ==
[~2017-11-17] VITALS: Ht 182.9 cm; Wt 80.7 kg
[2017-11-17 21:54] VITALS: Ht 182.9 cm; Wt 80.7 kg
[2017-11-18 05:15] VITALS: BP 130/77
== END 2017-11-18 05:15 | disposition home or self-care (01) ==
LOC: ED 20:35
DX: J06.9 Acute upper respiratory infection, unspecified (principal); K21.9 Gastro-esophageal reflux disease without esophagitis; K74.60 Unspecified cirrhosis of liver
CPT/HCPCS: J1885

== ENCOUNTER 2017-11-29 22:05 | Emergency (ER) | payer OTHER ==
[~2017-11-29] VITALS: Ht 177.8 cm; Wt 102.0 kg
[2017-11-29 22:51] VITALS: Ht 177.8 cm; Wt 102.0 kg
[2017-11-30 01:16] VITALS: BP 102/74
== END 2017-11-30 01:16 | disposition home or self-care (01) ==
LOC: ED 22:05
DX: F10.129 Alcohol abuse with intoxication, unspecified (principal); J45.909 Unspecified asthma, uncomplicated; K74.69 Other cirrhosis of liver; K52.9 Noninfective gastroenteritis and colitis, unspecified; I10 Essential (primary) hypertension; Z59.0 Homelessness

== ENCOUNTER 2017-12-05 21:20 | Emergency (ER) | payer OTHER ==
[2017-12-05 23:54] LABS: CALCIUM 8.3 mg/dL (8.5-10.1); CARBON DIOXIDE 24.9 mmol/L (21-32); CHLORIDE SERUM 91 mmol/L (98-107); CREATININE SERUM 0.9 mg/dL (0.7-1.3); GFR1 > 60 mL/min; GLUCOSE SERUM 101 mg/dL (74-106); POTASSIUM SERUM 3.7 mmol/L (3.5-5.1); SODIUM SERUM 130 mmol/L (136-145)
[2017-12-05 23:58] LABS: BASOPHIL % 1.3 % (0-2)
[2017-12-05 23:59] LABS: PLATELET COUNT 70 x10^3mcL (130-400); RED CELL DISTRIBUTION WIDTH 16.6 % (11.5-14.5)
[2017-12-06 00:10] LABS: ALBUMIN 3.9 g/dL (3.4-5.0); ALKALINE PHOSPHATASE 115 U/L (46-116); ALT/SGPT 103 U/L (16-63); AST/SGOT 260 U/L (15-37); BILIRUBIN TOTAL 0.6 mg/dL (0.20-1.00); TOTAL PROTEIN, SERUM 7.8 g/dL (6.4-8.2)
[2017-12-06 03:27] VITALS: BP 115/77
== END 2017-12-06 02:00 | disposition home or self-care (01) ==
LOC: ED 21:20
PROVIDERS: Emergency Medicine
DX: J20.9 Acute bronchitis, unspecified (principal); N39.0 Urinary tract infection, site not specified; I10 Essential (primary) hypertension; J45.909 Unspecified asthma, uncomplicated; Z59.0 Homelessness
CPT/HCPCS: 82962; 83880; 87804; G0480; J3411; J3475; J3490; J7030

== ENCOUNTER 2017-12-07 11:03 | Emergency (ER) | payer OTHER | END 2017-12-07 13:18 | disposition other institution (70) | LOC: ED 11:03 | DX: Z02.89 Encounter for other administrative examinations (principal); J40 Bronchitis, not specified as acute or chronic; N39.0 Urinary tract infection, site not specified; F10.129 Alcohol abuse with intoxication, unspecified; I10 Essential (primary) hypertension; K70.30 Alcoholic cirrhosis of liver without ascites; Z59.0 Homelessness; Z87.19 Personal history of other diseases of the digestive system ==

== ENCOUNTER 2017-12-07 11:03 | Emergency (ER) | payer OTHER ==
[~2017-12-07] VITALS: Ht 182.9 cm; Wt 79.4 kg
[2017-12-07 11:37] VITALS: BP 128/88; Ht 182.9 cm; Wt 79.4 kg
== END 2017-12-07 13:08 | disposition other institution (70) ==
LOC: ED 11:03
DX: N39.0 Urinary tract infection, site not specified (principal); J45.901 Unspecified asthma with (acute) exacerbation; F10.129 Alcohol abuse with intoxication, unspecified; D61.818 Other pancytopenia; R05 Cough; Z59.0 Homelessness
CPT/HCPCS: J0696

== ENCOUNTER 2017-12-19 21:04 | Emergency (ER) | payer SELFPAY ==
[~2017-12-19] VITALS: Ht 172.7 cm; Wt 72.6 kg
[2017-12-19 21:26] VITALS: Ht 172.7 cm; Wt 72.6 kg
[2017-12-20 03:42] VITALS: BP 110/59
== END 2017-12-20 06:43 | disposition home or self-care (01) ==
LOC: ED 21:04
DX: F10.129 Alcohol abuse with intoxication, unspecified (principal)

== ENCOUNTER 2017-12-21 15:18 | Emergency (ER) | payer SELFPAY ==
[~2017-12-21] VITALS: Ht 182.9 cm; Wt 72.6 kg
[2017-12-21 15:45] VITALS: Ht 182.9 cm; Wt 72.6 kg
[2017-12-21 17:36] VITALS: BP 103/70
== END 2017-12-21 17:36 | disposition home or self-care (01) ==
LOC: ED 15:18
DX: F10.129 Alcohol abuse with intoxication, unspecified (principal); J45.909 Unspecified asthma, uncomplicated; I10 Essential (primary) hypertension; K74.60 Unspecified cirrhosis of liver; K86.1 Other chronic pancreatitis; Z59.0 Homelessness

== ENCOUNTER 2017-12-25 04:19 | Inpatient (IN) | payer SELFPAY ==
[~2017-12-25] VITALS: Ht 172.7 cm; Wt 81.4 kg
[2017-12-25 04:25] VITALS: Ht 172.7 cm; Wt 81.4 kg
[2017-12-25 05:39] LABS: CALCIUM 8.8 mg/dL (8.5-10.1); CARBON DIOXIDE 28.8 mmol/L (21-32); CHLORIDE SERUM 103 mmol/L (98-107); CREATININE SERUM 0.5 mg/dL (0.7-1.3); GFR1 > 60 mL/min; GLUCOSE SERUM 95 mg/dL (74-106); SODIUM SERUM 143 mmol/L (136-145)
[2017-12-25 05:44] LABS: ALKALINE PHOSPHATASE 120 U/L (46-116); ALT/SGPT 77 U/L (16-63); AST/SGOT 120 U/L (15-37); BILIRUBIN TOTAL 0.28 mg/dL (0.20-1.00)
[2017-12-25 05:47] LABS: PLATELET COUNT 122 x10^3mcL (130-400); RED CELL DISTRIBUTION WIDTH 17.5 % (11.5-14.5)
[2017-12-25 06:59] LABS: BAND NEUTROPHIL 0 % (0-10); BASOPHIL 0 % (0-2); MONOCYTE 6 % (0-7); SEGMENTED NEUTROPHILS 62 % (37-75); rbc morphology (normal/abnorm) ABNORMAL (NORMAL); tear drop cell (dacryocyte) 1+
[2017-12-25 07:00] LABS: PLATELET MORPHOLOGY LARGE PLATELET SEEN
[2017-12-25 09:41] LABS: PHOSPHOROUS 4.2 mg/dL (2.5-4.9)
[2017-12-25 09:44] LABS: CHOLESTEROL/HDL RATIO 2.1
[2017-12-25 09:51] VITALS: BP 141/95
[2017-12-25 09:51] LABS: T3 TOTAL 1.67 ng/mL
[2017-12-25 09:53] LABS: FREE T4 0.89 ng/dL (0.76-1.46); FREE THYROXINE INDEX 2.6 ug/dL (1.4-4.5); T4(THYROXINE) 7.2 ug/dL (4.7-13.3)
[2017-12-25 11:34] VITALS: BP 141/95
[2017-12-25 13:00] VITALS: BP 129/79
[2017-12-25 19:42] LABS: microscopic required? NO
[2017-12-25 19:49] LABS: UA SPECIFIC GRAVITY 1.015 (1.005-1.035); urine erythrocyte NEGATIVE (NEGATIVE)
[2017-12-25 19:58] LABS: AMPHETAMINE QUAL UR NONE DETECTED (NEG <=1000)
[2017-12-25 21:44] VITALS: BP 156/90
[2017-12-26 06:01] LABS: BASOPHIL % 1.3 % (0-2)
[2017-12-26 06:09] LABS: PLATELET COUNT 82 x10^3mcL (130-400); RED CELL DISTRIBUTION WIDTH 18.2 % (11.5-14.5)
[2017-12-26 06:14] VITALS: BP 152/98
[2017-12-26 06:33] LABS: CARBON DIOXIDE 25.8 mmol/L (21-32); CHLORIDE SERUM 97 mmol/L (98-107); CREATININE SERUM 0.7 mg/dL (0.7-1.3); GFR1 > 60 mL/min; GLUCOSE SERUM 89 mg/dL (74-106); MAGNESIUM 2.1 mg/dL (1.8-2.4); PHOSPHOROUS 3.7 mg/dL (2.5-4.9); POTASSIUM SERUM 3.7 mmol/L (3.5-5.1); SODIUM SERUM 136 mmol/L (136-145)
[2017-12-26 08:42] VITALS: BP 121/99
[2017-12-26] MEDS ORDERED: METOPROLOL TART25 M1 PO (10:00)
[2017-12-26] MEDS ORDERED: LIPI10 PO (10:00)
[2017-12-26] MEDS ORDERED: ECO81 PO (10:01)
[2017-12-26] MEDS ORDERED: THI100 PO (10:04)
[2017-12-26] MEDS ORDERED: THERAGRAN-M1 TA4 PO (10:04)
[2017-12-26] MEDS ORDERED: FOL1 PO (10:04)
[2017-12-26] MEDS ORDERED: PRI20 PO (10:05)
[2017-12-26] MEDS ORDERED: MYCOO TOP (10:05)
[2017-12-26] MEDS ORDERED: ATIVAN1 MG PO (10:06)
[2017-12-26 10:55] VITALS: BP 121/99
== END 2017-12-26 12:10 | disposition home or self-care (01) | DRG 896 ==
LOC: ED 04:19 → DU 08:29
PROVIDERS: Emergency Medicine; Family Medicine
DX: F10.231 Alcohol dependence with withdrawal delirium (principal); G92 Toxic encephalopathy; D61.818 Other pancytopenia; F41.9 Anxiety disorder, unspecified; Y90.9 Presence of alcohol in blood, level not specified; J45.909 Unspecified asthma, uncomplicated; G43.909 Migraine, unspecified, not intractable, without status migrainosus; G40.909 Epilepsy, unspecified, not intractable, without status epilepticus; R74.0 Nonspecific elevation of levels of transaminase and lactic acid dehydrogenase [LDH]; K21.9 Gastro-esophageal reflux disease without esophagitis; F17.210 Nicotine dependence, cigarettes, uncomplicated; E78.5 Hyperlipidemia, unspecified; F32.9 Major depressive disorder, single episode, unspecified; Z87.11 Personal history of peptic ulcer disease; Z59.0 Homelessness; Z79.899 Other long term (current) drug therapy; Z83.3 Family history of diabetes mellitus; Z82.49 Family history of ischemic heart disease and other diseases of the circulatory system
CPT/HCPCS: 83880; 84439; G0480; J2060; J2405; J3411; J3475; J3490; J7030; Q0092

== ENCOUNTER 2017-12-26 21:24 | Emergency (ER) | payer OTHER ==
[~2017-12-26] VITALS: Ht 172.7 cm; Wt 68.0 kg
[~2017-12-26 21:24] MED LIST changes: +ATIVAN1 MG PO; +ECO81 PO; +LIPI10 PO; +METOPROLOL TART25 M1 PO; +MYCOO TOP; +THERAGRAN-M1 TA4 PO
[2017-12-26 21:34] VITALS: BP 93/66; Ht 172.7 cm; Wt 68.0 kg
== END 2017-12-26 21:52 | disposition other institution (70) ==
LOC: ED 21:24
DX: Z02.89 Encounter for other administrative examinations (principal); H10.9 Unspecified conjunctivitis; F10.129 Alcohol abuse with intoxication, unspecified; I10 Essential (primary) hypertension; J45.909 Unspecified asthma, uncomplicated; K74.60 Unspecified cirrhosis of liver; Z59.0 Homelessness

== ENCOUNTER 2018-01-09 00:22 | Emergency (ER) | payer OTHER ==
[~2018-01-09] VITALS: Ht 182.9 cm; Wt 72.6 kg
[2018-01-09 00:33] VITALS: Ht 182.9 cm; Wt 72.6 kg
[2018-01-09 01:04] LABS: BASOPHIL % 0.6 % (0-2); PLATELET COUNT 179 x10^3mcL (130-400)
[2018-01-09 01:05] LABS: RED CELL DISTRIBUTION WIDTH 19.2 % (11.5-14.5)
[2018-01-09 01:28] LABS: CARBON DIOXIDE 25.1 mmol/L (21-32); CHLORIDE SERUM 103 mmol/L (98-107); CREATININE SERUM 0.7 mg/dL (0.7-1.3); GFR1 > 60 mL/min; GLUCOSE SERUM 107 mg/dL (74-106); POTASSIUM SERUM 4.1 mmol/L (3.5-5.1); SODIUM SERUM 140 mmol/L (136-145)
[2018-01-09 01:33] LABS: ALBUMIN 3.6 g/dL (3.4-5.0); ALKALINE PHOSPHATASE 138 U/L (46-116); ALT/SGPT 70 U/L (16-63); AST/SGOT 78 U/L (15-37); BILIRUBIN TOTAL 0.2 mg/dL (0.20-1.00); TOTAL PROTEIN, SERUM 7.6 g/dL (6.4-8.2)
[2018-01-09 01:46] LABS: ERYTHROCYTE SED RATE 17 mm/hr (0-15)
[2018-01-09 10:04] LABS: microscopic required? NO
[2018-01-09 10:12] LABS: UA SPECIFIC GRAVITY 1.015 (1.005-1.035); urine erythrocyte NEGATIVE (NEGATIVE)
[2018-01-09 10:19] LABS: AMPHETAMINE QUAL UR NONE DETECTED (NEG <=1000)
[2018-01-09 11:08] LABS: T3 TOTAL 1.16 ng/mL
[2018-01-09 11:49] LABS: FREE T4 0.94 ng/dL (0.76-1.46); FREE THYROXINE INDEX 2.6 ug/dL (1.4-4.5); T4(THYROXINE) 7.3 ug/dL (4.7-13.3)
[2018-01-09 12:26] LABS: MAGNESIUM 1.9 mg/dL (1.8-2.4); PHOSPHOROUS 3.8 mg/dL (2.5-4.9)
[2018-01-09 12:27] LABS: CHOLESTEROL/HDL RATIO 2.1
[2018-01-09 17:18] VITALS: BP 146/88
== END 2018-01-09 17:18 | disposition home or self-care (01) ==
LOC: ED 00:22
PROVIDERS: Emergency Medicine; Family Medicine
DX: S90.812A Abrasion, left foot, initial encounter (principal); F10.239 Alcohol dependence with withdrawal, unspecified; I10 Essential (primary) hypertension; J45.909 Unspecified asthma, uncomplicated; K74.60 Unspecified cirrhosis of liver; Z59.0 Homelessness; Z87.19 Personal history of other diseases of the digestive system; X58.XXXA Exposure to other specified factors, initial encounter; Y93.89 Activity, other specified; Y99.8 Other external cause status; Y92.89 Other specified places as the place of occurrence of the external cause
CPT/HCPCS: 83880; 84439; G0480; J2060; Q0092

== ENCOUNTER 2018-01-20 08:46 | Emergency (ER) | payer MEDICAID ==
[~2018-01-20] VITALS: Ht 182.9 cm; Wt 72.6 kg
[2018-01-20 08:47] VITALS: Ht 182.9 cm; Wt 72.6 kg
[2018-01-20 17:13] VITALS: BP 104/83
== END 2018-01-20 17:13 | disposition home or self-care (01) ==
LOC: ED 08:46
DX: G93.40 Encephalopathy, unspecified (principal); F10.129 Alcohol abuse with intoxication, unspecified

== ENCOUNTER 2018-01-22 21:11 | Emergency (ER) | payer MEDICAID ==
[~2018-01-22] VITALS: Ht 172.7 cm; Wt 81.6 kg
[2018-01-22 22:08] VITALS: Ht 172.7 cm; Wt 81.6 kg
[2018-01-23 06:17] VITALS: BP 125/97
== END 2018-01-23 06:17 | disposition home or self-care (01) ==
LOC: ED 21:11
DX: F10.129 Alcohol abuse with intoxication, unspecified (principal); I10 Essential (primary) hypertension; J45.909 Unspecified asthma, uncomplicated; K74.60 Unspecified cirrhosis of liver; Z87.19 Personal history of other diseases of the digestive system; Z59.0 Homelessness

== ENCOUNTER 2018-01-30 13:31 | Emergency (ER) | payer MEDICAID ==
[~2018-01-30] VITALS: Ht 175.3 cm; Wt 79.4 kg
[2018-01-30 13:37] VITALS: Ht 175.3 cm; Wt 79.4 kg
[2018-01-30 15:17] LABS: BASOPHIL % 1.1 % (0-2); PLATELET COUNT 134 x10^3mcL (130-400)
[2018-01-30 15:20] LABS: CALCIUM 8.8 mg/dL (8.5-10.1); CHLORIDE SERUM 97 mmol/L (98-107); CREATININE SERUM 0.9 mg/dL (0.7-1.3); GFR1 > 60 mL/min; GLUCOSE SERUM 92 mg/dL (74-106); POTASSIUM SERUM 4.2 mmol/L (3.5-5.1); SODIUM SERUM 136 mmol/L (136-145)
[2018-01-30 18:25] VITALS: BP 115/70
== END 2018-01-30 18:50 | disposition home or self-care (01) ==
LOC: ED 13:31
PROVIDERS: Emergency Medicine
DX: G93.40 Encephalopathy, unspecified (principal); F10.129 Alcohol abuse with intoxication, unspecified; I10 Essential (primary) hypertension; J45.909 Unspecified asthma, uncomplicated; K74.60 Unspecified cirrhosis of liver; Z59.0 Homelessness
CPT/HCPCS: J2550; J3411; J3490; Q0092

== ENCOUNTER 2018-02-01 06:56 | Emergency (ER) | payer MEDICAID ==
[~2018-02-01] VITALS: Ht 182.9 cm; Wt 74.8 kg
[2018-02-01 07:03] VITALS: Ht 182.9 cm; Wt 74.8 kg
[2018-02-01 13:52] VITALS: BP 120/85
== END 2018-02-01 13:53 | disposition home or self-care (01) ==
LOC: ED 06:56
DX: F10.10 Alcohol abuse, uncomplicated (principal); J45.909 Unspecified asthma, uncomplicated; I10 Essential (primary) hypertension; K21.9 Gastro-esophageal reflux disease without esophagitis; Z59.0 Homelessness; Z90.49 Acquired absence of other specified parts of digestive tract
CPT/HCPCS: Q0092; Q0162

== ENCOUNTER 2018-02-07 18:44 | Emergency (ER) | payer MEDICAID ==
[~2018-02-07] VITALS: Ht 205.7 cm; Wt 90.7 kg
[2018-02-07 19:06] VITALS: Ht 205.7 cm; Wt 90.7 kg
[2018-02-07 20:16] VITALS: BP 100/74
== END 2018-02-07 20:16 | disposition other institution (70) ==
LOC: ED 18:44
DX: F10.20 Alcohol dependence, uncomplicated (principal); J45.909 Unspecified asthma, uncomplicated; I10 Essential (primary) hypertension; K74.60 Unspecified cirrhosis of liver

== ENCOUNTER 2018-02-07 18:44 | Emergency (ER) | payer OTHER | END 2018-02-07 20:41 | disposition other institution (70) | LOC: ED 18:44 | DX: Z02.89 Encounter for other administrative examinations (principal) ==

== ENCOUNTER 2018-02-28 11:17 | Emergency (ER) | payer SELFPAY ==
[~2018-02-28] VITALS: Ht 182.9 cm; Wt 79.4 kg
[2018-02-28 11:19] VITALS: Ht 182.9 cm; Wt 79.4 kg
[2018-02-28 15:28] VITALS: BP 108/86
== END 2018-02-28 15:28 | disposition home or self-care (01) ==
LOC: ED 11:17
DX: F10.129 Alcohol abuse with intoxication, unspecified (principal); J45.909 Unspecified asthma, uncomplicated; I10 Essential (primary) hypertension; K74.60 Unspecified cirrhosis of liver; K52.9 Noninfective gastroenteritis and colitis, unspecified; Z59.0 Homelessness

== ENCOUNTER 2018-03-04 08:58 | Emergency (ER) | payer SELFPAY ==
[~2018-03-04] VITALS: Ht 182.9 cm; Wt 72.6 kg
[2018-03-04 09:00] VITALS: BP 139/96; Ht 182.9 cm; Wt 72.6 kg
== END 2018-03-04 09:08 | disposition left against medical advice (07) ==
LOC: ED 08:58
DX: Z53.21 Procedure and treatment not carried out due to patient leaving prior to being seen by health care provider (principal)

== ENCOUNTER 2018-03-12 15:17 | Emergency (ER) | payer SELFPAY ==
[~2018-03-12] VITALS: Ht 188 cm; Wt 81.6 kg
[2018-03-12 15:22] VITALS: BP 138/99; Ht 188 cm; Wt 81.6 kg
== END 2018-03-12 15:32 | disposition left against medical advice (07) ==
LOC: ED 15:17
DX: Z53.21 Procedure and treatment not carried out due to patient leaving prior to being seen by health care provider (principal)

== ENCOUNTER 2018-03-26 04:30 | Emergency (ER) | payer MEDICAID ==
[~2018-03-26] VITALS: Ht 182.9 cm; Wt 80.5 kg
[2018-03-26 04:40] VITALS: Ht 182.9 cm; Wt 80.5 kg
[2018-03-26 07:17] LABS: PLATELET COUNT 168 x10^3mcL (130-400)
[2018-03-26 07:25] LABS: CALCIUM 8.4 mg/dL (8.5-10.1); CARBON DIOXIDE 28.7 mmol/L (21-32); CHLORIDE SERUM 104 mmol/L (98-107); CREATININE SERUM 0.8 mg/dL (0.7-1.3); GFR1 > 60 mL/min; GLUCOSE SERUM 166 mg/dL (74-106); POTASSIUM SERUM 4.1 mmol/L (3.5-5.1); SODIUM SERUM 141 mmol/L (136-145)
[2018-03-26 07:32] LABS: ALBUMIN 3.8 g/dL (3.4-5.0); ALKALINE PHOSPHATASE 106 U/L (46-116); ALT/SGPT 116 U/L (16-63); AMYLASE 78 U/L (25-115); AST/SGOT 125 U/L (15-37); BILIRUBIN TOTAL 0.4 mg/dL (0.20-1.00); CHOLESTEROL 182 mg/dL (<200); LIPASE 575 IU/L (73-393); TOTAL PROTEIN, SERUM 7.2 g/dL (6.4-8.2)
[2018-03-26 07:46] LABS: RED CELL DISTRIBUTION WIDTH 19.5 % (11.5-14.5)
[2018-03-26 08:10] LABS: ATYPICAL LYMPH 1 %; BAND NEUTROPHIL 0 % (0-10); BASOPHIL 2 % (0-2); MONOCYTE 5 % (0-7); SEGMENTED NEUTROPHILS 77 % (37-75)
[2018-03-26 08:12] LABS: PLATELET MORPHOLOGY PLATELETS DECREASED; rbc morphology (normal/abnorm) ABNORMAL (NORMAL)
[2018-03-26 08:22] VITALS: BP 107/64
== END 2018-03-26 09:48 | disposition left against medical advice (07) ==
LOC: ED 04:30
PROVIDERS: Emergency Medicine
DX: F10.229 Alcohol dependence with intoxication, unspecified (principal); K70.30 Alcoholic cirrhosis of liver without ascites; D64.9 Anemia, unspecified; E78.00 Pure hypercholesterolemia, unspecified; J45.909 Unspecified asthma, uncomplicated; K21.9 Gastro-esophageal reflux disease without esophagitis; I10 Essential (primary) hypertension; Z59.0 Homelessness; Z90.49 Acquired absence of other specified parts of digestive tract; Y90.8 Blood alcohol level of 240 mg/100 ml or more
CPT/HCPCS: 82962; 83880; G0480; J1165; J3411; J3475; J3490; J7030

== ENCOUNTER 2018-04-01 22:10 | Inpatient (IN) | payer MEDICAID ==
[~2018-04-01] VITALS: Ht 180.3 cm; Wt 83.2 kg
[~2018-04-01 22:10] MED LIST changes: -CELEXA10 MG; +CELEXA10 MG PO
[2018-04-01 22:31] VITALS: Ht 180.3 cm; Wt 83.2 kg
[2018-04-01 22:44] LABS: BASOPHIL % 0.5 % (0-2)
[2018-04-01 22:49] LABS: PLATELET COUNT 129 x10^3mcL (130-400); RED CELL DISTRIBUTION WIDTH 19.5 % (11.5-14.5)
[2018-04-01 22:54] LABS: CALCIUM 8.3 mg/dL (8.5-10.1); CARBON DIOXIDE 27.4 mmol/L (21-32); CHLORIDE SERUM 105 mmol/L (98-107); CREATININE SERUM 0.7 mg/dL (0.7-1.3); GFR1 > 60 mL/min; GLUCOSE SERUM 123 mg/dL (74-106); POTASSIUM SERUM 3.8 mmol/L (3.5-5.1); SODIUM SERUM 143 mmol/L (136-145)
[2018-04-01 22:58] LABS: ALBUMIN 3.8 g/dL (3.4-5.0); ALKALINE PHOSPHATASE 143 U/L (46-116); ALT/SGPT 93 U/L (16-63); AST/SGOT 118 U/L (15-37); BILIRUBIN TOTAL 0.3 mg/dL (0.20-1.00); LIPASE 605 IU/L (73-393); MAGNESIUM 2.2 mg/dL (1.8-2.4); TOTAL PROTEIN, SERUM 7.2 g/dL (6.4-8.2)
[2018-04-02 01:34] LABS: microscopic required? NO
[2018-04-02 01:57] LABS: urine erythrocyte NEGATIVE (NEGATIVE)
[2018-04-02 02:05] LABS: AMPHETAMINE QUAL UR NONE DETECTED (NEG <=1000)
[2018-04-02 03:45] VITALS: BP 101/59
[2018-04-02 04:01] LABS: PHOSPHOROUS 4.2 mg/dL (2.5-4.9)
[2018-04-02 04:02] LABS: T3 TOTAL 1.07 ng/mL
[2018-04-02 04:11] LABS: CHOLESTEROL/HDL RATIO 1.6
[2018-04-02 04:34] LABS: FREE T4 0.95 ng/dL (0.76-1.46); T4(THYROXINE) 6.2 ug/dL (4.7-13.3)
[2018-04-02 08:55] VITALS: BP 131/94
[2018-04-02 13:41] VITALS: BP 128/80
[2018-04-02 17:41] VITALS: BP 123/83
[2018-04-02 20:53] VITALS: BP 105/72
[2018-04-03 06:07] LABS: BASOPHIL % 0.5 % (0-2)
[2018-04-03 06:12] LABS: CALCIUM 8.5 mg/dL (8.5-10.1); CARBON DIOXIDE 28.5 mmol/L (21-32); CHLORIDE SERUM 102 mmol/L (98-107); CREATININE SERUM 0.6 mg/dL (0.7-1.3); GFR1 > 60 mL/min; GLUCOSE SERUM 85 mg/dL (74-106); POTASSIUM SERUM 3.7 mmol/L (3.5-5.1); SODIUM SERUM 138 mmol/L (136-145)
[2018-04-03 06:28] VITALS: BP 127/91
[2018-04-03 06:47] LABS: PLATELET COUNT 93 x10^3mcL (130-400); RED CELL DISTRIBUTION WIDTH 19.3 % (11.5-14.5)
[2018-04-03 08:21] VITALS: BP 121/73
[2018-04-03 12:59] VITALS: BP 129/81
[2018-04-03 16:22] VITALS: BP 138/86
[2018-04-03 20:54] VITALS: BP 141/83
[2018-04-04 05:46] VITALS: BP 117/87
[2018-04-04 06:20] LABS: CALCIUM 9.3 mg/dL (8.5-10.1); CARBON DIOXIDE 27.6 mmol/L (21-32); CHLORIDE SERUM 101 mmol/L (98-107); CREATININE SERUM 0.7 mg/dL (0.7-1.3); GFR1 > 60 mL/min; GLUCOSE SERUM 90 mg/dL (74-106); POTASSIUM SERUM 3.4 mmol/L (3.5-5.1); SODIUM SERUM 140 mmol/L (136-145)
[2018-04-04 07:55] LABS: PLATELET COUNT 100 x10^3mcL (130-400); RED CELL DISTRIBUTION WIDTH 19.4 % (11.5-14.5)
[2018-04-04 09:04] VITALS: BP 124/95
[2018-04-04 12:37] VITALS: BP 138/89
[2018-04-04] MEDS ORDERED: LIB25 PO (13:28)
== END 2018-04-04 15:47 | disposition home or self-care (01) | DRG 775 ==
LOC: ED 22:10 → DU 04-02 02:05
PROVIDERS: Emergency Medicine; Family Medicine
DX: F10.229 Alcohol dependence with intoxication, unspecified (principal); F10.239 Alcohol dependence with withdrawal, unspecified; G92 Toxic encephalopathy; D61.818 Other pancytopenia; R45.851 Suicidal ideations; G40.909 Epilepsy, unspecified, not intractable, without status epilepticus; K21.9 Gastro-esophageal reflux disease without esophagitis; K86.1 Other chronic pancreatitis; I10 Essential (primary) hypertension; F32.9 Major depressive disorder, single episode, unspecified; J45.909 Unspecified asthma, uncomplicated; F41.9 Anxiety disorder, unspecified; G43.909 Migraine, unspecified, not intractable, without status migrainosus; K70.30 Alcoholic cirrhosis of liver without ascites; F17.210 Nicotine dependence, cigarettes, uncomplicated; E78.5 Hyperlipidemia, unspecified; Y90.8 Blood alcohol level of 240 mg/100 ml or more; Z79.899 Other long term (current) drug therapy; Z79.82 Long term (current) use of aspirin; Z83.3 Family history of diabetes mellitus; Z82.49 Family history of ischemic heart disease and other diseases of the circulatory system; Z59.0 Homelessness; Z87.11 Personal history of peptic ulcer disease
CPT/HCPCS: 83880; 84439; G0480; J2060; J2543; J3490; J7030; Q0092; Q9967

== ENCOUNTER 2018-04-21 18:59 | Emergency (ER) | payer MEDICAID ==
[~2018-04-21] VITALS: Ht 182.9 cm; Wt 77.1 kg
[2018-04-21 19:06] VITALS: Ht 182.9 cm; Wt 77.1 kg
[2018-04-21 20:28] LABS: BASOPHIL % 1.2 % (0-2); PLATELET COUNT 169 x10^3mcL (130-400)
[2018-04-21 20:32] LABS: CALCIUM 7.9 mg/dL (8.5-10.1); CARBON DIOXIDE 25.9 mmol/L (21-32); CHLORIDE SERUM 109 mmol/L (98-107); GFR1 > 60 mL/min; GLUCOSE SERUM 96 mg/dL (74-106); POTASSIUM SERUM 4.5 mmol/L (3.5-5.1); SODIUM SERUM 144 mmol/L (136-145)
[2018-04-21 20:38] LABS: ALBUMIN 3.6 g/dL (3.4-5.0); ALKALINE PHOSPHATASE 110 U/L (46-116); ALT/SGPT 83 U/L (16-63); AST/SGOT 78 U/L (15-37); BILIRUBIN TOTAL 0.2 mg/dL (0.20-1.00); TOTAL PROTEIN, SERUM 6.7 g/dL (6.4-8.2)
[2018-04-21 23:40] VITALS: BP 108/66
== END 2018-04-21 23:40 | disposition home or self-care (01) ==
LOC: ED 18:59
PROVIDERS: Emergency Medicine
DX: F10.129 Alcohol abuse with intoxication, unspecified (principal); K21.9 Gastro-esophageal reflux disease without esophagitis; F41.9 Anxiety disorder, unspecified; F32.9 Major depressive disorder, single episode, unspecified; E86.0 Dehydration

== ENCOUNTER 2018-04-30 05:59 | Emergency (ER) | payer MEDICAID ==
[~2018-04-30] VITALS: Ht 180.3 cm; Wt 74.8 kg
[2018-04-30 06:19] VITALS: Ht 180.3 cm; Wt 74.8 kg
[2018-04-30 08:14] VITALS: BP 135/87
== END 2018-04-30 08:35 | disposition home or self-care (01) ==
LOC: ED 05:59
DX: F10.239 Alcohol dependence with withdrawal, unspecified (principal); J45.909 Unspecified asthma, uncomplicated; I10 Essential (primary) hypertension; R56.9 Unspecified convulsions; K21.9 Gastro-esophageal reflux disease without esophagitis; F41.9 Anxiety disorder, unspecified; F32.9 Major depressive disorder, single episode, unspecified

== ENCOUNTER 2018-05-06 06:14 | Inpatient (IN) | payer MEDICAID ==
[~2018-05-06] VITALS: Ht 180.3 cm; Wt 81.3 kg
[2018-05-06 06:20] VITALS: Ht 180.3 cm; Wt 81.3 kg
[2018-05-06 07:30] LABS: CALCIUM 8.3 mg/dL (8.5-10.1); CARBON DIOXIDE 24.9 mmol/L (21-32); CHLORIDE SERUM 102 mmol/L (98-107); CREATININE SERUM 0.8 mg/dL (0.7-1.3); GLUCOSE SERUM 86 mg/dL (74-106); POTASSIUM SERUM 4.4 mmol/L (3.5-5.1); SODIUM SERUM 140 mmol/L (136-145)
[2018-05-06 07:47] LABS: ALKALINE PHOSPHATASE 101 U/L (46-116); ALT/SGPT 36 U/L (16-63); AMYLASE 82 U/L (25-115); AST/SGOT 72 U/L (15-37); BILIRUBIN TOTAL 0.57 mg/dL (0.20-1.00); CHOLESTEROL 190 mg/dL (<200); LIPASE 507 IU/L (73-393); MAGNESIUM 2.4 mg/dL (1.8-2.4); T4(THYROXINE) 4.9 ug/dL (4.7-13.3); TOTAL PROTEIN, SERUM 7.3 g/dL (6.4-8.2)
[2018-05-06 07:51] LABS: HDL CHOLESTEROL 99 mg/dL (40-60)
[2018-05-06 07:56] LABS: PLATELET COUNT 55 x10^3mcL (130-400); RED CELL DISTRIBUTION WIDTH 20.1 % (11.5-14.5)
[2018-05-06 08:38] LABS: ATYPICAL LYMPH 3 %; BAND NEUTROPHIL 1 % (0-10); BASOPHIL 0 % (0-2); MONOCYTE 4 % (0-7); SEGMENTED NEUTROPHILS 68 % (37-75)
[2018-05-06 08:40] LABS: PLATELET MORPHOLOGY PLATELETS DECREASED; rbc morphology (normal/abnorm) ABNORMAL (NORMAL)
[2018-05-06 10:27] LABS: UA SPECIFIC GRAVITY >=1.030 (1.005-1.035); microscopic required? YES; urine erythrocyte 3+ (NEGATIVE)
[2018-05-06 11:20] LABS: AMPHETAMINE QUAL UR NONE DETECTED (See below)
[2018-05-06 13:12] LABS: T3 TOTAL 1.2 ng/mL
[2018-05-06 13:32] LABS: FREE T4 0.8 ng/dL (0.76-1.46); FREE THYROXINE INDEX 1.6 ug/dL (1.4-4.5); T4(THYROXINE) 4.9 ug/dL (4.7-13.3)
[2018-05-06 14:00] VITALS: BP 135/94
[2018-05-06] MEDS ORDERED: METOPROLOL TART50 MG PO (14:24)
[2018-05-06 15:09] LABS: IRON 41 ug/dL (65-170); TOTAL IRON BINDING CAPACITY 352 ug/dL (250-450)
[2018-05-06 15:23] LABS: RED BLOOD CELLS 3.45 M/mm3 (4.52-5.90)
[2018-05-06 16:49] LABS: PHOSPHOROUS 4.1 mg/dL (2.5-4.9)
[2018-05-06 17:24] VITALS: BP 135/85
[2018-05-06 22:09] VITALS: BP 121/64
[2018-05-07 06:08] VITALS: BP 132/98
[2018-05-07 06:15] LABS: BASOPHIL % 0.3 % (0-2)
[2018-05-07 06:27] LABS: CALCIUM 9.4 mg/dL (8.5-10.1); CARBON DIOXIDE 26.2 mmol/L (21-32); CHLORIDE SERUM 97 mmol/L (98-107); CREATININE SERUM 0.6 mg/dL (0.7-1.3); GLUCOSE SERUM 75 mg/dL (74-106); POTASSIUM SERUM 3.8 mmol/L (3.5-5.1); SODIUM SERUM 133 mmol/L (136-145)
[2018-05-07 06:33] LABS: GFR1 > 60 mL/min
[2018-05-07 07:00] LABS: PLATELET COUNT 44 x10^3mcL (130-400); RED CELL DISTRIBUTION WIDTH 20.2 % (11.5-14.5)
[2018-05-07 09:24] VITALS: BP 122/67
[2018-05-07 13:34] VITALS: BP 135/85
[2018-05-07 17:37] VITALS: BP 129/92
[2018-05-07 21:47] VITALS: BP 130/90
[2018-05-08 05:44] VITALS: BP 135/93
[2018-05-08 06:50] LABS: BASOPHIL % 0.3 % (0-2)
[2018-05-08 06:51] LABS: PLATELET COUNT 48 x10^3mcL (130-400); RED CELL DISTRIBUTION WIDTH 19.3 % (11.5-14.5)
[2018-05-08 06:53] LABS: CALCIUM 9.5 mg/dL (8.5-10.1); CARBON DIOXIDE 25.1 mmol/L (21-32); CHLORIDE SERUM 99 mmol/L (98-107); CREATININE SERUM 0.7 mg/dL (0.7-1.3); GFR1 > 60 mL/min; GLUCOSE SERUM 98 mg/dL (74-106); MAGNESIUM 1.8 mg/dL (1.8-2.4); POTASSIUM SERUM 3.5 mmol/L (3.5-5.1); SODIUM SERUM 135 mmol/L (136-145)
[2018-05-08] MEDS ORDERED: LIPI10 PO (08:59)
[2018-05-08] MEDS ORDERED: LIB25 PO (09:00)
[2018-05-08] MEDS ORDERED: COZ25 PO ×2 (09:00→09:02)
[2018-05-08] MEDS ORDERED: CEL20 PO (09:02)
[2018-05-08] MEDS ORDERED: LOP50 PO (09:02)
[2018-05-08] MEDS ORDERED: PRI20 PO (09:03)
[2018-05-08] MEDS ORDERED: KEPPRA500 MG PO (09:11)
[2018-05-08 09:45] VITALS: BP 125/81
[2018-05-08 12:36] VITALS: BP 125/81
[2018-05-10 09:12] LABS: VITAMIN B1 (THIAMINE) 207.9 nmol/L (66.5-200.0)
[2018-05-12 08:20] LABS: VITAMIN B6/PYRIDOXINE 15.9 ug/L (5.3-46.7)
== END 2018-05-08 14:41 | disposition home or self-care (01) | DRG 775 ==
LOC: ED 06:14 → DU 11:30
PROVIDERS: Emergency Medicine; Family Medicine
DX: F10.239 Alcohol dependence with withdrawal, unspecified (principal); N17.0 Acute kidney failure with tubular necrosis; G92 Toxic encephalopathy; K85.20 Alcohol induced acute pancreatitis without necrosis or infection; I10 Essential (primary) hypertension; D69.6 Thrombocytopenia, unspecified; F41.8 Other specified anxiety disorders; J45.909 Unspecified asthma, uncomplicated; K21.9 Gastro-esophageal reflux disease without esophagitis; D64.9 Anemia, unspecified; G40.909 Epilepsy, unspecified, not intractable, without status epilepticus; Y90.9 Presence of alcohol in blood, level not specified; Z59.0 Homelessness; Z87.891 Personal history of nicotine dependence; Z91.19 Patient's noncompliance with other medical treatment and regimen
CPT/HCPCS: 82962; 83880; 84207; 84425; 84439; G0480; J2060; J2405; J2543; J3490; J7030; Q0092

== ENCOUNTER 2018-05-16 09:35 | Inpatient (IN) | payer MEDICAID ==
[~2018-05-16] VITALS: Ht 180.3 cm; Wt 75.0 kg
[~2018-05-16 09:35] MED LIST changes: +CEL20 PO; +LOP50 PO; +METOPROLOL TART50 MG PO
[2018-05-16 11:27] LABS: BASOPHIL % 1.4 % (0-2); PLATELET COUNT 226 x10^3mcL (130-400)
[2018-05-16 11:36] LABS: RED CELL DISTRIBUTION WIDTH 19.9 % (11.5-14.5)
[2018-05-16 12:30] LABS: CALCIUM 8.8 mg/dL (8.5-10.1); CARBON DIOXIDE 23.7 mmol/L (21-32); CHLORIDE SERUM 99 mmol/L (98-107); CREATININE SERUM 0.9 mg/dL (0.7-1.3); GFR1 > 60 mL/min; GLUCOSE SERUM 87 mg/dL (74-106); POTASSIUM SERUM 3.9 mmol/L (3.5-5.1); SODIUM SERUM 136 mmol/L (136-145)
[2018-05-16 12:42] LABS: ALBUMIN 3.8 g/dL (3.4-5.0); ALKALINE PHOSPHATASE 109 U/L (46-116); ALT/SGPT 70 U/L (16-63); AST/SGOT 91 U/L (15-37); BILIRUBIN TOTAL 0.31 mg/dL (0.20-1.00); FREE T4 0.95 ng/dL (0.76-1.46); LIPASE 678 IU/L (73-393); TOTAL PROTEIN, SERUM 7.2 g/dL (6.4-8.2)
[2018-05-16 15:10] LABS: MAGNESIUM 2.2 mg/dL (1.8-2.4); PHOSPHOROUS 5.2 mg/dL (2.5-4.9)
[2018-05-16 15:20] LABS: FREE T4 0.9 ng/dL (0.76-1.46); FREE THYROXINE INDEX 2.6 ug/dL (1.4-4.5); T4(THYROXINE) 7.1 ug/dL (4.7-13.3)
[2018-05-16 15:34] LABS: T3 TOTAL 1.02 ng/mL
[2018-05-16 15:43] LABS: microscopic required? NO
[2018-05-16 15:49] LABS: UA SPECIFIC GRAVITY <=1.005 (1.005-1.035); urine erythrocyte NEGATIVE (NEGATIVE)
[2018-05-16 16:03] LABS: AMPHETAMINE QUAL UR NONE DETECTED (See below)
[2018-05-16 16:12] VITALS: BP 99/70
[2018-05-16 19:44] VITALS: Ht 180.3 cm; Wt 75.0 kg
[2018-05-16 20:31] VITALS: BP 101/63
[2018-05-17 05:20] VITALS: BP 144/88
[2018-05-17 06:13] LABS: CALCIUM 8.5 mg/dL (8.5-10.1); CARBON DIOXIDE 27.8 mmol/L (21-32); CHLORIDE SERUM 103 mmol/L (98-107); CREATININE SERUM 0.7 mg/dL (0.7-1.3); GFR1 > 60 mL/min; GLUCOSE SERUM 81 mg/dL (74-106); MAGNESIUM 2.2 mg/dL (1.8-2.4); PHOSPHOROUS 3.6 mg/dL (2.5-4.9); POTASSIUM SERUM 4.3 mmol/L (3.5-5.1); SODIUM SERUM 140 mmol/L (136-145)
[2018-05-17 06:37] LABS: PLATELET COUNT 205 x10^3mcL (130-400)
[2018-05-17 06:40] LABS: RED CELL DISTRIBUTION WIDTH 19.7 % (11.5-14.5)
[2018-05-17 09:18] VITALS: BP 141/89
[2018-05-17 13:41] VITALS: BP 140/91
[2018-05-17 17:43] VITALS: BP 145/98
[2018-05-17 20:08] VITALS: BP 136/94
[2018-05-18 05:23] VITALS: BP 147/93
[2018-05-18 07:22] LABS: BASOPHIL % 1.2 % (0-2); PLATELET COUNT 223 x10^3mcL (130-400); RED CELL DISTRIBUTION WIDTH 19.1 % (11.5-14.5)
[2018-05-18 07:36] LABS: CARBON DIOXIDE 25.6 mmol/L (21-32); CHLORIDE SERUM 101 mmol/L (98-107); CREATININE SERUM 0.7 mg/dL (0.7-1.3); GFR1 > 60 mL/min; GLUCOSE SERUM 85 mg/dL (74-106); MAGNESIUM 1.9 mg/dL (1.8-2.4); PHOSPHOROUS 3.6 mg/dL (2.5-4.9); SODIUM SERUM 136 mmol/L (136-145)
[2018-05-18 08:21] VITALS: BP 149/86
[2018-05-18 12:58] VITALS: BP 149/86
== END 2018-05-18 15:18 | disposition home or self-care (01) | DRG 282 ==
LOC: ED 09:35 → DU 14:27
PROVIDERS: Emergency Medicine; General Practice
DX: K85.20 Alcohol induced acute pancreatitis without necrosis or infection (principal); G92 Toxic encephalopathy; E87.2 Acidosis; E83.39 Other disorders of phosphorus metabolism; T51.0X1A Toxic effect of ethanol, accidental (unintentional), initial encounter; F10.229 Alcohol dependence with intoxication, unspecified; K21.9 Gastro-esophageal reflux disease without esophagitis; G40.909 Epilepsy, unspecified, not intractable, without status epilepticus; J45.909 Unspecified asthma, uncomplicated; I10 Essential (primary) hypertension; D64.9 Anemia, unspecified; F32.9 Major depressive disorder, single episode, unspecified; Z68.23 Body mass index [BMI] 23.0-23.9, adult; Z59.0 Homelessness; Z91.19 Patient's noncompliance with other medical treatment and regimen; Y90.8 Blood alcohol level of 240 mg/100 ml or more; Y92.89 Other specified places as the place of occurrence of the external cause
CPT/HCPCS: 83880; 84439; G0480; J3411; J3475; J3490; J7030

== ENCOUNTER 2018-05-23 11:22 | Emergency (ER) | payer MEDICAID ==
[~2018-05-23] VITALS: Ht 172.7 cm; Wt 72.6 kg
[2018-05-23 11:31] VITALS: Ht 172.7 cm; Wt 72.6 kg
[2018-05-23 16:51] VITALS: BP 102/59
== END 2018-05-23 16:51 | disposition home or self-care (01) ==
LOC: ED 11:22
DX: F10.129 Alcohol abuse with intoxication, unspecified (principal); R05 Cough; R07.89 Other chest pain; I10 Essential (primary) hypertension

== ENCOUNTER 2018-06-01 16:21 | Inpatient (IN) | payer MEDICAID ==
[~2018-06-01] VITALS: Ht 180.3 cm; Wt 78.2 kg
[2018-06-01 16:27] VITALS: Ht 180.3 cm; Wt 78.2 kg
[2018-06-01 17:14] LABS: BASOPHIL % 0.7 % (0-2)
[2018-06-01 17:19] LABS: PLATELET COUNT 125 x10^3mcL (130-400); RED CELL DISTRIBUTION WIDTH 19.1 % (11.5-14.5)
[2018-06-01 17:29] LABS: CREATININE SERUM 1.4 mg/dL (0.7-1.3); POTASSIUM SERUM 4.1 mmol/L (3.5-5.1)
[2018-06-01 17:33] LABS: ALBUMIN 3.9 g/dL (3.4-5.0); BILIRUBIN TOTAL 0.36 mg/dL (0.20-1.00); TOTAL PROTEIN, SERUM 7.1 g/dL (6.4-8.2)
[2018-06-01 20:42] LABS: microscopic required? NO
[2018-06-01] MEDS ORDERED: CAL PO (20:47)
[2018-06-01] MEDS ORDERED: GELUSIL TABLET1 EACH PO (20:48)
[2018-06-01] MEDS ORDERED: THERA-M CAPLET1 EACH PO (20:48)
[2018-06-01] MEDS ORDERED: NATURE'S BLEND F1 MG PO (20:49)
[2018-06-01] MEDS ORDERED: THI100 PO (20:49)
[2018-06-01] MEDS ORDERED: PEPCID20 MG PO (20:50)
[2018-06-01] MEDS ORDERED: KEFLEX500 M1 PO (20:52)
[2018-06-01] MEDS ORDERED: KEFLEX500 M1 (20:52)
[2018-06-01 20:53] LABS: UA SPECIFIC GRAVITY <=1.005 (1.005-1.035); urine erythrocyte NEGATIVE (NEGATIVE)
[2018-06-01 21:04] LABS: AMPHETAMINE QUAL UR NONE DETECTED (See below)
[2018-06-01 21:27] LABS: CHOLESTEROL/HDL RATIO 3.3
[2018-06-01 22:50] VITALS: BP 102/67
[2018-06-02 06:30] VITALS: BP 122/82
[2018-06-02 07:57] LABS: CALCIUM 8.9 mg/dL (8.5-10.1); CHLORIDE SERUM 107 mmol/L (98-107); CREATININE SERUM 0.8 mg/dL (0.7-1.3); GFR1 > 60 mL/min; GLUCOSE SERUM 79 mg/dL (74-106); MAGNESIUM 2.2 mg/dL (1.8-2.4); PHOSPHOROUS 3.2 mg/dL (2.5-4.9); POTASSIUM SERUM 4.8 mmol/L (3.5-5.1); SODIUM SERUM 137 mmol/L (136-145)
[2018-06-02 09:07] VITALS: BP 120/80
[2018-06-02 09:36] LABS: BASOPHIL % 0.7 % (0-2)
[2018-06-02 09:53] LABS: PLATELET COUNT 125 x10^3mcL (130-400); RED CELL DISTRIBUTION WIDTH 18.8 % (11.5-14.5)
[2018-06-02 13:13] VITALS: BP 122/84
[2018-06-02 17:33] VITALS: BP 133/86
[2018-06-02 21:06] VITALS: BP 115/79
[2018-06-03 05:39] VITALS: BP 133/80
[2018-06-03 06:07] LABS: BASOPHIL % 0.6 % (0-2); PLATELET COUNT 136 x10^3mcL (130-400)
[2018-06-03 06:25] LABS: CALCIUM 9.4 mg/dL (8.5-10.1); CARBON DIOXIDE 26.3 mmol/L (21-32); CHLORIDE SERUM 104 mmol/L (98-107); CREATININE SERUM 0.8 mg/dL (0.7-1.3); GFR1 > 60 mL/min; GLUCOSE SERUM 87 mg/dL (74-106); PHOSPHOROUS 4.2 mg/dL (2.5-4.9); POTASSIUM SERUM 3.9 mmol/L (3.5-5.1); SODIUM SERUM 138 mmol/L (136-145)
[2018-06-03 09:00] VITALS: BP 140/90
== END 2018-06-03 13:24 | disposition home or self-care (01) | DRG 816 ==
LOC: ED 16:21 → DU 19:14
PROVIDERS: Emergency Medicine; Internal Medicine
DX: T51.0X1A Toxic effect of ethanol, accidental (unintentional), initial encounter (principal); G92 Toxic encephalopathy; D61.818 Other pancytopenia; K70.30 Alcoholic cirrhosis of liver without ascites; K86.0 Alcohol-induced chronic pancreatitis; F10.229 Alcohol dependence with intoxication, unspecified; G40.909 Epilepsy, unspecified, not intractable, without status epilepticus; D64.9 Anemia, unspecified; Z68.23 Body mass index [BMI] 23.0-23.9, adult; Z72.0 Tobacco use; Z59.0 Homelessness; Y90.8 Blood alcohol level of 240 mg/100 ml or more; Y92.481 Parking lot as the place of occurrence of the external cause
CPT/HCPCS: 83880; G0480; J2060; J7030; Q0092

== ENCOUNTER 2018-06-10 22:08 | Emergency (ER) | payer MEDICAID ==
[~2018-06-10] VITALS: Ht 180.3 cm; Wt 74.8 kg
[~2018-06-10 22:08] MED LIST changes: +CAL PO; +GELUSIL TABLET1 EACH PO; +KEFLEX500 M1; +KEFLEX500 M1 PO; +PEPCID20 MG PO; +THERA-M CAPLET1 EACH PO
[2018-06-10 22:19] VITALS: Ht 180.3 cm; Wt 74.8 kg
[2018-06-11 06:10] VITALS: BP 121/81
== END 2018-06-11 06:10 | disposition home or self-care (01) ==
LOC: ED 22:08
DX: F10.129 Alcohol abuse with intoxication, unspecified (principal); J45.909 Unspecified asthma, uncomplicated; I10 Essential (primary) hypertension

== ENCOUNTER 2018-06-18 19:52 | Emergency (ER) | payer OTHER ==
[~2018-06-18] VITALS: Ht 180.3 cm; Wt 81.6 kg
[2018-06-18 20:03] VITALS: Ht 180.3 cm; Wt 81.6 kg
[2018-06-19 06:19] VITALS: BP 120/88
== END 2018-06-19 06:19 | disposition home or self-care (01) ==
LOC: ED 19:52
DX: F10.10 Alcohol abuse, uncomplicated (principal); F41.9 Anxiety disorder, unspecified; K21.9 Gastro-esophageal reflux disease without esophagitis; I10 Essential (primary) hypertension; J45.909 Unspecified asthma, uncomplicated; F32.9 Major depressive disorder, single episode, unspecified; Z86.69 Personal history of other diseases of the nervous system and sense organs
CPT/HCPCS: Q0162

== ENCOUNTER 2018-06-27 12:27 | Emergency (ER) | payer OTHER ==
[~2018-06-27] VITALS: Ht 182.9 cm; Wt 99.8 kg
[2018-06-27 12:30] VITALS: Ht 182.9 cm; Wt 99.8 kg
[2018-06-27 15:31] LABS: CALCIUM 8.2 mg/dL (8.5-10.1); CARBON DIOXIDE 26.5 mmol/L (21-32); CHLORIDE SERUM 99 mmol/L (98-107); CREATININE SERUM 0.7 mg/dL (0.7-1.3); GFR1 > 60 mL/min; GLUCOSE SERUM 111 mg/dL (74-106); PLATELET COUNT 68 x10^3mcL (130-400); POTASSIUM SERUM 3.7 mmol/L (3.5-5.1); RED CELL DISTRIBUTION WIDTH 20.6 % (11.5-14.5); SODIUM SERUM 134 mmol/L (136-145)
[2018-06-27 16:22] LABS: BAND NEUTROPHIL 3 % (0-10); MONOCYTE 14 % (0-7); SEGMENTED NEUTROPHILS 56 % (37-75)
[2018-06-27 16:23] VITALS: BP 115/70
[2018-06-27 16:23] LABS: rbc morphology (normal/abnorm) NORMAL (NORMAL)
[2018-06-27 16:24] LABS: PLATELET MORPHOLOGY PLATELETS DECREASED
== END 2018-06-27 17:30 | disposition home or self-care (01) ==
LOC: ED 12:27
PROVIDERS: Emergency Medicine
DX: G40.909 Epilepsy, unspecified, not intractable, without status epilepticus (principal); R53.1 Weakness; D72.819 Decreased white blood cell count, unspecified; J45.909 Unspecified asthma, uncomplicated; I10 Essential (primary) hypertension; Z59.0 Homelessness
CPT/HCPCS: G0480; J2405; J3411; J3475; J3490; J7030

== ENCOUNTER 2018-07-06 12:27 | Emergency (ER) | payer OTHER ==
[~2018-07-06] VITALS: Ht 172.7 cm; Wt 68.0 kg
[2018-07-06 12:34] VITALS: Ht 172.7 cm; Wt 68.0 kg
[2018-07-06 13:15] LABS: CALCIUM 7.9 mg/dL (8.5-10.1); CARBON DIOXIDE 21.6 mmol/L (21-32); CHLORIDE SERUM 102 mmol/L (98-107); CREATININE SERUM 1.1 mg/dL (0.7-1.3); GFR1 > 60 mL/min; GLUCOSE SERUM 96 mg/dL (74-106); POTASSIUM SERUM 3.7 mmol/L (3.5-5.1); SODIUM SERUM 137 mmol/L (136-145)
[2018-07-06 13:18] LABS: BASOPHIL % 1.1 % (0-2); PLATELET COUNT 153 x10^3mcL (130-400)
[2018-07-06 13:26] LABS: ALBUMIN 3.6 g/dL (3.4-5.0); ALKALINE PHOSPHATASE 50 U/L (46-116); ALT/SGPT 117 U/L (16-63); AST/SGOT 133 U/L (15-37); BILIRUBIN TOTAL 0.28 mg/dL (0.20-1.00); TOTAL PROTEIN, SERUM 6.5 g/dL (6.4-8.2)
[2018-07-06 13:30] LABS: FREE THYROXINE INDEX 2.4 ug/dL (1.4-4.5); T4(THYROXINE) 6.4 ug/dL (4.7-13.3)
[2018-07-06 13:37] LABS: RED CELL DISTRIBUTION WIDTH 20.5 % (11.5-14.5)
[2018-07-06 14:22] LABS: T3 TOTAL 0.84 ng/mL
[2018-07-06 14:36] LABS: CK-MB 6.2 ng/mL (0-3.6)
[2018-07-06 17:14] LABS: microscopic required? NO
[2018-07-06 17:37] LABS: UA SPECIFIC GRAVITY <=1.005 (1.005-1.035); urine erythrocyte NEGATIVE (NEGATIVE)
[2018-07-06 17:56] LABS: AMPHETAMINE QUAL UR NONE DETECTED (See below)
[2018-07-06 19:45] VITALS: BP 119/74
== END 2018-07-06 19:51 | disposition home or self-care (01) ==
LOC: ED 12:27
PROVIDERS: Specialist
DX: F10.129 Alcohol abuse with intoxication, unspecified (principal); E86.0 Dehydration; J45.909 Unspecified asthma, uncomplicated; I10 Essential (primary) hypertension; Z59.0 Homelessness; F41.9 Anxiety disorder, unspecified; F32.9 Major depressive disorder, single episode, unspecified; K21.9 Gastro-esophageal reflux disease without esophagitis
CPT/HCPCS: 84439; J3411; J3475; J3490; J7030; Q0092

== ENCOUNTER 2018-07-17 15:00 | Emergency (ER) | payer OTHER ==
[~2018-07-17] VITALS: Ht 180.3 cm; Wt 77.1 kg
[2018-07-17 15:54] LABS: BASOPHIL % 0.5 % (0-2); PLATELET COUNT 137 x10^3mcL (130-400); RED CELL DISTRIBUTION WIDTH 19.5 % (11.5-14.5)
[2018-07-17 16:10] LABS: CALCIUM 8.1 mg/dL (8.5-10.1); CARBON DIOXIDE 23.3 mmol/L (21-32); CHLORIDE SERUM 98 mmol/L (98-107); CREATININE SERUM 0.9 mg/dL (0.7-1.3); GFR1 > 60 mL/min; GLUCOSE SERUM 108 mg/dL (74-106); POTASSIUM SERUM 3.3 mmol/L (3.5-5.1); SODIUM SERUM 132 mmol/L (136-145)
[2018-07-17 16:16] LABS: ALBUMIN 3.7 g/dL (3.4-5.0); ALKALINE PHOSPHATASE 69 U/L (46-116); ALT/SGPT 56 U/L (16-63); AST/SGOT 91 U/L (15-37); BILIRUBIN TOTAL 0.4 mg/dL (0.20-1.00); TOTAL PROTEIN, SERUM 6.9 g/dL (6.4-8.2)
[2018-07-17 17:05] LABS: microscopic required? NO
[2018-07-17 17:30] LABS: UA SPECIFIC GRAVITY <=1.005 (1.005-1.035); urine erythrocyte NEGATIVE (NEGATIVE)
[2018-07-17 18:01] LABS: AMPHETAMINE QUAL UR NONE DETECTED (See below)
[2018-07-17 21:46] VITALS: BP 91/55
== END 2018-07-17 21:46 | disposition home or self-care (01) ==
LOC: ED 15:00
PROVIDERS: Specialist
DX: E87.6 Hypokalemia (principal); F10.10 Alcohol abuse, uncomplicated; I10 Essential (primary) hypertension; J45.909 Unspecified asthma, uncomplicated; Z59.0 Homelessness
CPT/HCPCS: G0480; J7030

== ENCOUNTER 2018-07-30 22:07 | Emergency (ER) | payer OTHER ==
[~2018-07-30] VITALS: Ht 177.8 cm; Wt 72.6 kg
[2018-07-30 22:20] VITALS: BP 134/78; Ht 177.8 cm; Wt 72.6 kg
== END 2018-07-30 23:52 | disposition home or self-care (01) ==
LOC: ED 22:07
DX: F10.10 Alcohol abuse, uncomplicated (principal); J45.909 Unspecified asthma, uncomplicated; I10 Essential (primary) hypertension; Z59.0 Homelessness; K21.9 Gastro-esophageal reflux disease without esophagitis; F41.9 Anxiety disorder, unspecified; F32.9 Major depressive disorder, single episode, unspecified; R56.9 Unspecified convulsions; K70.30 Alcoholic cirrhosis of liver without ascites; Z98.890 Other specified postprocedural states

== ENCOUNTER 2018-07-31 00:02 | Inpatient (IN) | payer OTHER ==
[~2018-07-31] VITALS: Ht 180.3 cm; Wt 71.2 kg
[2018-07-31 00:09] VITALS: Ht 180.3 cm; Wt 71.2 kg
[2018-07-31 06:52] LABS: CALCIUM 9.4 mg/dL (8.5-10.1); CARBON DIOXIDE 24.9 mmol/L (21-32); CHLORIDE SERUM 96 mmol/L (98-107); CREATININE SERUM 0.9 mg/dL (0.7-1.3); GFR1 > 60 mL/min; GLUCOSE SERUM 100 mg/dL (74-106); PLATELET COUNT 278 x10^3mcL (130-400); SODIUM SERUM 137 mmol/L (136-145)
[2018-07-31 06:59] LABS: ALBUMIN 4.4 g/dL (3.4-5.0); ALKALINE PHOSPHATASE 72 U/L (46-116); ALT/SGPT 84 U/L (16-63); AST/SGOT 55 U/L (15-37); BILIRUBIN TOTAL 0.7 mg/dL (0.20-1.00); TOTAL PROTEIN, SERUM 8.1 g/dL (6.4-8.2)
[2018-07-31 07:02] LABS: BASOPHIL % 0 % (0-2); RED CELL DISTRIBUTION WIDTH 20.4 % (11.5-14.5)
[2018-07-31 08:45] LABS: T3 TOTAL 1.58 ng/mL
[2018-07-31 08:47] LABS: rbc morphology (normal/abnorm) ABNORMAL (NORMAL)
[2018-07-31 08:47] LABS: AMPHETAMINE QUAL UR POSITIVE (See below)
[2018-07-31 08:50] LABS: FREE T4 1.1 ng/dL (0.76-1.46); FREE THYROXINE INDEX 2.8 ug/dL (1.4-4.5); T4(THYROXINE) 7.9 ug/dL (4.7-13.3)
[2018-07-31 09:21] LABS: MAGNESIUM 1.7 mg/dL (1.8-2.4); PHOSPHOROUS 3.6 mg/dL (2.5-4.9)
[2018-07-31 09:23] LABS: CHOLESTEROL/HDL RATIO 1.7
[2018-07-31 10:02] VITALS: BP 155/98
[2018-07-31 14:15] LABS: microscopic required? NO
[2018-07-31 14:48] LABS: UA SPECIFIC GRAVITY 1.015 (1.005-1.035); urine erythrocyte NEGATIVE (NEGATIVE)
[2018-07-31 18:21] VITALS: BP 130/83
[2018-07-31 20:40] VITALS: BP 140/95
[2018-08-01 05:12] VITALS: BP 134/91
== END 2018-08-01 08:33 | disposition left against medical advice (07) | DRG 720 ==
LOC: ED 00:02 → DU 06:34
PROVIDERS: Emergency Medicine; Internal Medicine
DX: A41.9 Sepsis, unspecified organism (principal); G92 Toxic encephalopathy; R74.0 Nonspecific elevation of levels of transaminase and lactic acid dehydrogenase [LDH]; D64.9 Anemia, unspecified; K21.9 Gastro-esophageal reflux disease without esophagitis; F19.10 Other psychoactive substance abuse, uncomplicated; F41.9 Anxiety disorder, unspecified; F32.9 Major depressive disorder, single episode, unspecified; F10.129 Alcohol abuse with intoxication, unspecified; Y90.0 Blood alcohol level of less than 20 mg/100 ml; Z53.21 Procedure and treatment not carried out due to patient leaving prior to being seen by health care provider; K74.60 Unspecified cirrhosis of liver; J45.909 Unspecified asthma, uncomplicated; Z59.0 Homelessness; Z68.22 Body mass index [BMI] 22.0-22.9, adult; Z82.49 Family history of ischemic heart disease and other diseases of the circulatory system; Z83.3 Family history of diabetes mellitus
CPT/HCPCS: 83880; 84439; G0480; J2060; J7030

== ENCOUNTER 2018-08-01 22:42 | Emergency (ER) | payer OTHER ==
[~2018-08-01] VITALS: Ht 177.8 cm; Wt 74.8 kg
[2018-08-01 23:41] VITALS: BP 141/86; Ht 177.8 cm; Wt 74.8 kg
== END 2018-08-02 01:00 | disposition left against medical advice (07) ==
LOC: ED 22:42
DX: Z53.21 Procedure and treatment not carried out due to patient leaving prior to being seen by health care provider (principal)

== ENCOUNTER → 2018-08-13 11:41 | Emergency (ER) | payer OTHER | END | disposition left against medical advice (07) | LOC: ED 11:41 | DX: F10.20 Alcohol dependence, uncomplicated (principal); J45.909 Unspecified asthma, uncomplicated; I10 Essential (primary) hypertension; F41.9 Anxiety disorder, unspecified; R56.9 Unspecified convulsions; K21.9 Gastro-esophageal reflux disease without esophagitis; K74.60 Unspecified cirrhosis of liver; F32.9 Major depressive disorder, single episode, unspecified; Z98.890 Other specified postprocedural states ==

== ENCOUNTER 2018-08-20 14:23 | Emergency (ER) | payer OTHER | END 2018-08-20 14:49 | disposition left against medical advice (07) | LOC: ED 14:23 | DX: Z53.21 Procedure and treatment not carried out due to patient leaving prior to being seen by health care provider (principal) ==

== ENCOUNTER 2018-08-23 16:34 | Emergency (ER) | payer OTHER ==
[~2018-08-23] VITALS: Ht 180.3 cm; Wt 72.6 kg
[2018-08-23 16:43] VITALS: BP 91/65; Ht 180.3 cm; Wt 72.6 kg
== END 2018-08-23 17:05 | disposition other institution (70) ==
LOC: ED 16:34
DX: Z01.89 Encounter for other specified special examinations (principal)

== ENCOUNTER 2018-08-26 16:01 | Emergency (ER) | payer OTHER ==
[~2018-08-26] VITALS: Ht 175.3 cm; Wt 77.1 kg
[2018-08-26 16:04] VITALS: Ht 175.3 cm; Wt 77.1 kg
[2018-08-26 18:31] VITALS: BP 97/58
== END 2018-08-26 18:31 | disposition home or self-care (01) ==
LOC: ED 16:01
DX: R56.9 Unspecified convulsions (principal); F10.10 Alcohol abuse, uncomplicated; J45.909 Unspecified asthma, uncomplicated; I10 Essential (primary) hypertension; Z90.89 Acquired absence of other organs; Z87.19 Personal history of other diseases of the digestive system

== ENCOUNTER 2018-09-09 13:17 | Emergency (ER) | payer OTHER ==
[~2018-09-09] VITALS: Ht 182.9 cm; Wt 77.1 kg
[2018-09-09 13:51] VITALS: Ht 182.9 cm; Wt 77.1 kg
[2018-09-09 16:43] VITALS: BP 113/66
== END 2018-09-09 16:43 | disposition home or self-care (01) ==
LOC: ED 13:17
DX: F10.229 Alcohol dependence with intoxication, unspecified (principal); J45.909 Unspecified asthma, uncomplicated; I10 Essential (primary) hypertension; F41.9 Anxiety disorder, unspecified; K21.9 Gastro-esophageal reflux disease without esophagitis; Z87.19 Personal history of other diseases of the digestive system

== ENCOUNTER 2018-09-13 13:42 | Emergency (ER) | payer OTHER ==
[~2018-09-13] VITALS: Ht 180.3 cm; Wt 74.8 kg
[2018-09-13 13:46] VITALS: BP 112/69; Ht 180.3 cm; Wt 74.8 kg
== END 2018-09-13 14:40 | disposition home or self-care (01) ==
LOC: ED 13:42
DX: F10.129 Alcohol abuse with intoxication, unspecified (principal); I10 Essential (primary) hypertension; K21.9 Gastro-esophageal reflux disease without esophagitis; K70.30 Alcoholic cirrhosis of liver without ascites; F32.9 Major depressive disorder, single episode, unspecified; F41.9 Anxiety disorder, unspecified; Z98.890 Other specified postprocedural states

== ENCOUNTER 2018-09-21 09:23 | Emergency (ER) | payer OTHER ==
[~2018-09-21] VITALS: Ht 180.3 cm; Wt 72.6 kg
[2018-09-21 09:28] VITALS: Ht 180.3 cm; Wt 72.6 kg
[2018-09-21 12:49] VITALS: BP 108/84
== END 2018-09-21 12:49 | disposition home or self-care (01) ==
LOC: ED 09:23
DX: F10.10 Alcohol abuse, uncomplicated (principal); I10 Essential (primary) hypertension; J45.909 Unspecified asthma, uncomplicated; K21.9 Gastro-esophageal reflux disease without esophagitis; F41.9 Anxiety disorder, unspecified; Z87.19 Personal history of other diseases of the digestive system

== ENCOUNTER 2018-10-15 12:37 | Emergency (ER) | payer OTHER ==
[~2018-10-15] VITALS: Ht 180.3 cm; Wt 74.8 kg
[2018-10-15 12:45] VITALS: Ht 180.3 cm; Wt 74.8 kg
[2018-10-15 15:18] VITALS: BP 131/53
== END 2018-10-15 15:18 | disposition home or self-care (01) ==
LOC: ED 12:37
DX: F10.10 Alcohol abuse, uncomplicated (principal); R56.9 Unspecified convulsions; J45.909 Unspecified asthma, uncomplicated; I10 Essential (primary) hypertension; K21.9 Gastro-esophageal reflux disease without esophagitis; F41.9 Anxiety disorder, unspecified; F32.9 Major depressive disorder, single episode, unspecified; K70.30 Alcoholic cirrhosis of liver without ascites

== ENCOUNTER 2018-10-17 15:09 | Inpatient (IN) | payer OTHER ==
[~2018-10-17] VITALS: Ht 180.3 cm; Wt 81.3 kg
[2018-10-17 15:13] VITALS: Ht 180.3 cm; Wt 81.3 kg
[2018-10-17 15:39] LABS: PLATELET COUNT 170 x10^3mcL (130-400)
[2018-10-17 16:01] LABS: CALCIUM 10.1 mg/dL (8.5-10.1); CARBON DIOXIDE 25.4 mmol/L (21-32); CHLORIDE SERUM 85 mmol/L (98-107); CREATININE SERUM 0.8 mg/dL (0.7-1.3); GFR1 > 60 mL/min; GLUCOSE SERUM 82 mg/dL (74-106); POTASSIUM SERUM 4.1 mmol/L (3.5-5.1)
[2018-10-17 16:05] LABS: SODIUM SERUM 123 mmol/L (136-145)
[2018-10-17 16:23] LABS: ATYPICAL LYMPH 1 %; BAND NEUTROPHIL 7 % (0-10); BASOPHIL 0 % (0-2); MONOCYTE 16 % (0-7); SEGMENTED NEUTROPHILS 62 % (37-75)
[2018-10-17 16:24] LABS: PLATELET MORPHOLOGY PLATELETS NORMAL; rbc morphology (normal/abnorm) ABNORMAL (NORMAL)
[2018-10-17 17:08] LABS: T3 TOTAL 1.12 ng/mL
[2018-10-17 17:12] LABS: MAGNESIUM 1.8 mg/dL (1.8-2.4); PHOSPHOROUS 4.3 mg/dL (2.5-4.9)
[2018-10-17 17:14] LABS: CHOLESTEROL/HDL RATIO 2.3
[2018-10-17 17:19] LABS: FREE T4 1.36 ng/dL (0.76-1.46); FREE THYROXINE INDEX 3.4 ug/dL (1.4-4.5); T4(THYROXINE) 9.5 ug/dL (4.7-13.3)
[2018-10-17 18:08] VITALS: BP 149/94
[2018-10-17 21:03] VITALS: BP 106/72
[2018-10-18 02:45] LABS: microscopic required? YES; urine erythrocyte NEGATIVE (NEGATIVE)
[2018-10-18 02:54] LABS: AMPHETAMINE QUAL UR NONE DETECTED (See below)
[2018-10-18 05:55] VITALS: BP 132/80
[2018-10-18 07:20] LABS: CARBON DIOXIDE 25.9 mmol/L (21-32); CHLORIDE SERUM 91 mmol/L (98-107); CREATININE SERUM 0.8 mg/dL (0.7-1.3); GFR1 > 60 mL/min; GLUCOSE SERUM 87 mg/dL (74-106); LIPASE 604 IU/L (73-393); PHOSPHOROUS 3.7 mg/dL (2.5-4.9); POTASSIUM SERUM 4.1 mmol/L (3.5-5.1); SODIUM SERUM 126 mmol/L (136-145)
[2018-10-18 08:28] LABS: BASOPHIL % 0.9 % (0-2); PLATELET COUNT 156 x10^3mcL (130-400); RED CELL DISTRIBUTION WIDTH 20.4 % (11.5-14.5)
[2018-10-18 08:29] LABS: rbc morphology (normal/abnorm) ABNORMAL (NORMAL)
[2018-10-18 08:38] VITALS: BP 118/84
[2018-10-18 12:51] VITALS: BP 151/107
[2018-10-18 17:12] VITALS: BP 135/93
[2018-10-18 21:32] VITALS: BP 122/82
[2018-10-19 05:31] VITALS: BP 135/90
[2018-10-19 06:51] LABS: BASOPHIL % 1.5 % (0-2); PLATELET COUNT 155 x10^3mcL (130-400); RED CELL DISTRIBUTION WIDTH 20.1 % (11.5-14.5)
[2018-10-19 06:52] LABS: CALCIUM 9.1 mg/dL (8.5-10.1); CARBON DIOXIDE 26.1 mmol/L (21-32); CHLORIDE SERUM 101 mmol/L (98-107); CREATININE SERUM 0.7 mg/dL (0.7-1.3); GFR1 > 60 mL/min; GLUCOSE SERUM 90 mg/dL (74-106); LIPASE 566 IU/L (73-393); MAGNESIUM 1.9 mg/dL (1.8-2.4); PHOSPHOROUS 4.4 mg/dL (2.5-4.9); POTASSIUM SERUM 3.6 mmol/L (3.5-5.1); SODIUM SERUM 136 mmol/L (136-145)
[2018-10-19 07:54] LABS: rbc morphology (normal/abnorm) ABNORMAL (NORMAL)
[2018-10-19 09:28] VITALS: BP 139/95
[2018-10-19 16:07] VITALS: BP 139/95
== END 2018-10-19 16:25 | disposition home or self-care (01) | DRG 282 ==
LOC: ED 15:09 → MU 16:17 → DU 16:17 → MU 17:43 → DU 19:16
PROVIDERS: Emergency Medicine; Family Medicine
DX: K85.90 Acute pancreatitis without necrosis or infection, unspecified (principal); G93.41 Metabolic encephalopathy; K70.30 Alcoholic cirrhosis of liver without ascites; F10.239 Alcohol dependence with withdrawal, unspecified; E87.1 Hypo-osmolality and hyponatremia; Y90.9 Presence of alcohol in blood, level not specified; E78.00 Pure hypercholesterolemia, unspecified; Z68.22 Body mass index [BMI] 22.0-22.9, adult; J45.909 Unspecified asthma, uncomplicated; I10 Essential (primary) hypertension; K21.9 Gastro-esophageal reflux disease without esophagitis; F41.8 Other specified anxiety disorders; Z60.2 Problems related to living alone; G40.909 Epilepsy, unspecified, not intractable, without status epilepticus; Z83.3 Family history of diabetes mellitus; Z82.49 Family history of ischemic heart disease and other diseases of the circulatory system; Z56.0 Unemployment, unspecified
CPT/HCPCS: 83880; 84439; 97110-GP; 97116-GP; 97530-GP; G0480; J2060; J7030; Q0092

== ENCOUNTER 2018-10-22 13:00 | Inpatient (IN) | payer OTHER ==
[~2018-10-22] VITALS: Ht 180.3 cm; Wt 78.5 kg
[2018-10-22 13:37] LABS: PLATELET COUNT 205 x10^3mcL (130-400)
[2018-10-22 14:04] LABS: CALCIUM 9.4 mg/dL (8.5-10.1); CARBON DIOXIDE 28.2 mmol/L (21-32); CHLORIDE SERUM 100 mmol/L (98-107); CREATININE SERUM 0.7 mg/dL (0.7-1.3); GFR1 > 60 mL/min; GLUCOSE SERUM 94 mg/dL (74-106); POTASSIUM SERUM 3.7 mmol/L (3.5-5.1); SODIUM SERUM 138 mmol/L (136-145)
[2018-10-22 14:11] LABS: RED CELL DISTRIBUTION WIDTH 20.5 % (11.5-14.5)
[2018-10-22 16:06] LABS: MAGNESIUM 1.7 mg/dL (1.8-2.4); PHOSPHOROUS 2.9 mg/dL (2.5-4.9)
[2018-10-22 16:07] LABS: CHOLESTEROL/HDL RATIO 2.2
[2018-10-22 16:15] LABS: FREE T4 0.93 ng/dL (0.76-1.46); FREE THYROXINE INDEX 2.5 ug/dL (1.4-4.5); T4(THYROXINE) 6.9 ug/dL (4.7-13.3)
[2018-10-22 16:17] LABS: T3 TOTAL 1.03 ng/mL
[2018-10-22 16:21] VITALS: BP 153/110
[2018-10-22 16:24] VITALS: Ht 180.3 cm; Wt 78.5 kg
[2018-10-22 21:31] VITALS: BP 132/100
[2018-10-23 05:33] VITALS: BP 134/101
[2018-10-23 05:50] LABS: microscopic required? NO
[2018-10-23 06:31] LABS: UA SPECIFIC GRAVITY 1.015 (1.005-1.035); urine erythrocyte NEGATIVE (NEGATIVE)
[2018-10-23 06:37] LABS: PLATELET COUNT 223 x10^3mcL (130-400)
[2018-10-23 06:48] LABS: CARBON DIOXIDE 25.3 mmol/L (21-32); CHLORIDE SERUM 97 mmol/L (98-107); CREATININE SERUM 0.7 mg/dL (0.7-1.3); GFR1 > 60 mL/min; GLUCOSE SERUM 88 mg/dL (74-106); POTASSIUM SERUM 3.6 mmol/L (3.5-5.1); SODIUM SERUM 134 mmol/L (136-145)
[2018-10-23 08:16] LABS: RED CELL DISTRIBUTION WIDTH 20.6 % (11.5-14.5)
[2018-10-23 08:44] LABS: AMPHETAMINE QUAL UR NONE DETECTED (See below)
[2018-10-23 09:09] LABS: BAND NEUTROPHIL 0 % (0-10); BASOPHIL 0 % (0-2); MONOCYTE 6 % (0-7); SEGMENTED NEUTROPHILS 84 % (37-75)
[2018-10-23 09:10] LABS: PLATELET MORPHOLOGY PLATELETS DECREASED; rbc morphology (normal/abnorm) ABNORMAL (NORMAL); schistocyte (helmet cell) 2+
[2018-10-23 09:41] VITALS: BP 137/98
[2018-10-23 13:56] VITALS: BP 123/85
[2018-10-23 17:37] VITALS: BP 133/75
[2018-10-23 21:06] VITALS: BP 126/85
[2018-10-24 05:08] VITALS: BP 153/105
[2018-10-24 06:22] LABS: CALCIUM 8.9 mg/dL (8.5-10.1); CHLORIDE SERUM 102 mmol/L (98-107); CREATININE SERUM 0.7 mg/dL (0.7-1.3); GFR1 > 60 mL/min; GLUCOSE SERUM 93 mg/dL (74-106); MAGNESIUM 2.1 mg/dL (1.8-2.4); POTASSIUM SERUM 3.7 mmol/L (3.5-5.1); SODIUM SERUM 136 mmol/L (136-145)
[2018-10-24 06:23] LABS: BASOPHIL % 1.6 % (0-2); PLATELET COUNT 239 x10^3mcL (130-400)
[2018-10-24 06:48] LABS: RED CELL DISTRIBUTION WIDTH 19.8 % (11.5-14.5)
[2018-10-24 08:30] VITALS: BP 149/96
[2018-10-24 12:30] VITALS: BP 134/102
[2018-10-24 17:00] VITALS: BP 104/52
[2018-10-24 20:39] VITALS: BP 134/77
[2018-10-25 05:23] VITALS: BP 143/97
[2018-10-25 09:21] VITALS: BP 129/91
[2018-10-25 12:27] VITALS: BP 153/95
[2018-10-25 15:56] VITALS: BP 153/95
[2018-10-25 16:21] VITALS: BP 135/90
== END 2018-10-25 17:03 | disposition left against medical advice (07) | DRG 342 ==
LOC: ED 13:00 → MU 15:18 → DU 15:18
PROVIDERS: Emergency Medicine; General Practice; Internal Medicine
DX: S52.502A Unspecified fracture of the lower end of left radius, initial encounter for closed fracture (principal); G92 Toxic encephalopathy; S22.21XA Fracture of manubrium, initial encounter for closed fracture; E83.42 Hypomagnesemia; D64.9 Anemia, unspecified; S52.615A Nondisplaced fracture of left ulna styloid process, initial encounter for closed fracture; F32.9 Major depressive disorder, single episode, unspecified; F10.10 Alcohol abuse, uncomplicated; F41.9 Anxiety disorder, unspecified; G40.909 Epilepsy, unspecified, not intractable, without status epilepticus; K21.9 Gastro-esophageal reflux disease without esophagitis; J45.909 Unspecified asthma, uncomplicated; Z53.21 Procedure and treatment not carried out due to patient leaving prior to being seen by health care provider; Y31.XXXA Falling, lying or running before or into moving object, undetermined intent, initial encounter; Y93.89 Activity, other specified; Y92.481 Parking lot as the place of occurrence of the external cause; Z59.0 Homelessness; Z68.22 Body mass index [BMI] 22.0-22.9, adult; Z87.891 Personal history of nicotine dependence; Z90.49 Acquired absence of other specified parts of digestive tract; Z87.11 Personal history of peptic ulcer disease; Z83.3 Family history of diabetes mellitus; Z82.49 Family history of ischemic heart disease and other diseases of the circulatory system
CPT/HCPCS: 84439; G0480; J2060; J2270; J3010; J7030; Q0092; Q0163

== ENCOUNTER 2018-10-26 04:39 | Emergency (ER) | payer OTHER ==
[~2018-10-26] VITALS: Ht 177.8 cm; Wt 74.8 kg
[2018-10-26 05:01] VITALS: Ht 177.8 cm; Wt 74.8 kg
[2018-10-26 08:43] VITALS: BP 118/79
== END 2018-10-26 08:43 | disposition home or self-care (01) ==
LOC: ED 04:39
DX: R53.1 Weakness (principal); F10.20 Alcohol dependence, uncomplicated; J45.909 Unspecified asthma, uncomplicated; I10 Essential (primary) hypertension; K21.9 Gastro-esophageal reflux disease without esophagitis; K70.30 Alcoholic cirrhosis of liver without ascites; F32.9 Major depressive disorder, single episode, unspecified; F41.9 Anxiety disorder, unspecified; Z98.890 Other specified postprocedural states

== ENCOUNTER 2018-10-27 10:45 | Emergency (ER) | payer OTHER ==
[~2018-10-27] VITALS: Ht 182.9 cm; Wt 74.8 kg
[2018-10-27 10:50] VITALS: BP 102/70; Ht 182.9 cm; Wt 74.8 kg
== END 2018-10-27 11:37 | disposition other institution (70) ==
LOC: ED 10:45
DX: Z02.89 Encounter for other administrative examinations (principal)

== ENCOUNTER 2018-11-10 15:58 | Emergency (ER) | payer OTHER | END 2018-11-10 19:00 | disposition left against medical advice (07) | LOC: ED 15:58 | DX: Z53.21 Procedure and treatment not carried out due to patient leaving prior to being seen by health care provider (principal) ==

== ENCOUNTER 2018-11-11 18:44 | Emergency (ER) | payer OTHER ==
[2018-11-11 19:50] LABS: CALCIUM 8.4 mg/dL (8.5-10.1); CARBON DIOXIDE 24.5 mmol/L (21-32); CHLORIDE SERUM 102 mmol/L (98-107); CREATININE SERUM 0.7 mg/dL (0.7-1.3); GFR1 > 60 mL/min; GLUCOSE SERUM 106 mg/dL (74-106); POTASSIUM SERUM 4.1 mmol/L (3.5-5.1); SODIUM SERUM 139 mmol/L (136-145)
[2018-11-11 19:55] LABS: ALBUMIN 3.8 g/dL (3.4-5.0); ALKALINE PHOSPHATASE 191 U/L (46-116); ALT/SGPT 68 U/L (16-63); AST/SGOT 32 U/L (15-37); BILIRUBIN TOTAL 0.1 mg/dL (0.20-1.00); MAGNESIUM 2.2 mg/dL (1.8-2.4); TOTAL PROTEIN, SERUM 7.3 g/dL (6.4-8.2)
[2018-11-11 19:59] LABS: BASOPHIL % 0.7 % (0-2); PLATELET COUNT 341 x10^3mcL (130-400)
[2018-11-11 20:00] LABS: RED CELL DISTRIBUTION WIDTH 18.1 % (11.5-14.5)
[2018-11-12 05:50] VITALS: BP 121/62
== END 2018-11-12 06:07 | disposition home or self-care (01) ==
LOC: ED 18:44
PROVIDERS: Emergency Medicine
DX: F10.129 Alcohol abuse with intoxication, unspecified (principal); R40.4 Transient alteration of awareness; Z90.89 Acquired absence of other organs; K21.9 Gastro-esophageal reflux disease without esophagitis
CPT/HCPCS: G0480; J1885

== ENCOUNTER 2018-11-15 00:47 | Emergency (ER) | payer OTHER ==
[~2018-11-15] VITALS: Ht 177.8 cm; Wt 77.1 kg
[2018-11-15 01:18] VITALS: Ht 177.8 cm; Wt 77.1 kg
[2018-11-15 01:39] LABS: PLATELET COUNT 287 x10^3mcL (130-400); RED CELL DISTRIBUTION WIDTH 16.6 % (11.5-14.5)
[2018-11-15 01:47] LABS: CALCIUM 8.5 mg/dL (8.5-10.1); CARBON DIOXIDE 29.5 mmol/L (21-32); CHLORIDE SERUM 101 mmol/L (98-107); CREATININE SERUM 0.9 mg/dL (0.7-1.3); GFR1 > 60 mL/min; GLUCOSE SERUM 92 mg/dL (74-106); SODIUM SERUM 138 mmol/L (136-145)
[2018-11-15 02:02] LABS: FREE T4 0.85 ng/dL (0.76-1.46)
[2018-11-15 04:51] LABS: AMPHETAMINE QUAL UR NONE DETECTED (See below)
[2018-11-15 05:54] VITALS: BP 139/94
== END 2018-11-15 07:51 | disposition home or self-care (01) ==
LOC: ED 00:47
PROVIDERS: Emergency Medicine
DX: R07.89 Other chest pain (principal); R06.02 Shortness of breath; J45.909 Unspecified asthma, uncomplicated; I10 Essential (primary) hypertension; K21.9 Gastro-esophageal reflux disease without esophagitis; K74.60 Unspecified cirrhosis of liver; F41.9 Anxiety disorder, unspecified; F32.9 Major depressive disorder, single episode, unspecified; Z98.890 Other specified postprocedural states
CPT/HCPCS: 36415; 83880; 84439; Q0092

== ENCOUNTER 2018-11-18 18:04 | Emergency (ER) | payer OTHER | END 2018-11-18 20:19 | disposition left against medical advice (07) | LOC: ED 18:04 | DX: Z53.21 Procedure and treatment not carried out due to patient leaving prior to being seen by health care provider (principal) ==

== ENCOUNTER 2018-11-27 20:02 | Emergency (ER) | payer OTHER ==
[~2018-11-27] VITALS: Ht 177.8 cm; Wt 77.1 kg
[2018-11-27 20:06] VITALS: Ht 177.8 cm; Wt 77.1 kg
[2018-11-27 20:41] LABS: BASOPHIL % 0.6 % (0-2)
[2018-11-27 20:43] LABS: PLATELET COUNT 104 x10^3mcL (130-400); RED CELL DISTRIBUTION WIDTH 17.5 % (11.5-14.5)
[2018-11-27 20:49] LABS: CALCIUM 8.2 mg/dL (8.5-10.1); CARBON DIOXIDE 29.4 mmol/L (21-32); CHLORIDE SERUM 106 mmol/L (98-107); CREATININE SERUM 0.9 mg/dL (0.7-1.3); GFR1 > 60 mL/min; GLUCOSE SERUM 117 mg/dL (74-106); POTASSIUM SERUM 3.4 mmol/L (3.5-5.1); SODIUM SERUM 144 mmol/L (136-145)
[2018-11-27 20:54] LABS: ALBUMIN 3.6 g/dL (3.4-5.0); ALKALINE PHOSPHATASE 185 U/L (46-116); ALT/SGPT 30 U/L (16-63); AST/SGOT 32 U/L (15-37); TOTAL PROTEIN, SERUM 7.5 g/dL (6.4-8.2)
[2018-11-27 21:25] LABS: microscopic required? NO
[2018-11-27 21:31] LABS: UA SPECIFIC GRAVITY <=1.005 (1.005-1.035); urine erythrocyte NEGATIVE (NEGATIVE)
[2018-11-28 00:53] VITALS: BP 105/62
== END 2018-11-28 00:53 | disposition home or self-care (01) ==
LOC: ED 20:02
PROVIDERS: Emergency Medicine
DX: R07.89 Other chest pain (principal); R06.02 Shortness of breath; M79.672 Pain in left foot; M79.671 Pain in right foot; J45.909 Unspecified asthma, uncomplicated; I10 Essential (primary) hypertension; F41.9 Anxiety disorder, unspecified; F32.9 Major depressive disorder, single episode, unspecified; K21.9 Gastro-esophageal reflux disease without esophagitis; Z98.890 Other specified postprocedural states
CPT/HCPCS: 36415; 83880; 87804; Q0092

== ENCOUNTER 2018-12-04 07:15 | Emergency (ER) | payer OTHER ==
[~2018-12-04] VITALS: Ht 180.3 cm; Wt 77.1 kg
[2018-12-04 07:23] VITALS: Ht 180.3 cm; Wt 77.1 kg
[2018-12-04 13:19] VITALS: BP 114/77
== END 2018-12-04 13:19 | disposition home or self-care (01) ==
LOC: ED 07:15
DX: F10.129 Alcohol abuse with intoxication, unspecified (principal); I10 Essential (primary) hypertension; G40.909 Epilepsy, unspecified, not intractable, without status epilepticus; J45.909 Unspecified asthma, uncomplicated; K21.9 Gastro-esophageal reflux disease without esophagitis; F41.9 Anxiety disorder, unspecified; F32.9 Major depressive disorder, single episode, unspecified; Z59.0 Homelessness; Z87.19 Personal history of other diseases of the digestive system; Z98.890 Other specified postprocedural states
CPT/HCPCS: 99406

== ENCOUNTER 2018-12-09 08:46 | Emergency (ER) | payer OTHER ==
[~2018-12-09] VITALS: Ht 180.3 cm; Wt 74.8 kg
[2018-12-09 08:58] VITALS: Ht 180.3 cm; Wt 74.8 kg
[2018-12-09 09:39] LABS: CALCIUM 9.2 mg/dL (8.5-10.1); CARBON DIOXIDE 23.4 mmol/L (21-32); CHLORIDE SERUM 98 mmol/L (98-107); CREATININE SERUM 0.8 mg/dL (0.7-1.3); GFR1 > 60 mL/min; GLUCOSE SERUM 97 mg/dL (74-106); POTASSIUM SERUM 3.9 mmol/L (3.5-5.1); SODIUM SERUM 135 mmol/L (136-145)
[2018-12-09 09:43] LABS: ALBUMIN 4.2 g/dL (3.4-5.0); ALKALINE PHOSPHATASE 141 U/L (46-116); ALT/SGPT 27 U/L (16-63); AST/SGOT 41 U/L (15-37); BILIRUBIN TOTAL 0.3 mg/dL (0.20-1.00); TOTAL PROTEIN, SERUM 8.2 g/dL (6.4-8.2); TRIGLYCERIDES 48 mg/dL (<150)
[2018-12-09 09:45] LABS: CHOLESTEROL 211 mg/dL (<200); HDL CHOLESTEROL 108 mg/dL (40-60)
[2018-12-09 09:56] LABS: FREE T4 0.79 ng/dL (0.76-1.46); FREE THYROXINE INDEX 2.3 ug/dL (1.4-4.5); T4(THYROXINE) 6.9 ug/dL (4.7-13.3)
[2018-12-09 09:58] LABS: BASOPHIL % 0.5 % (0-2); PLATELET COUNT 200 x10^3mcL (130-400)
[2018-12-09 10:00] LABS: RED CELL DISTRIBUTION WIDTH 16.7 % (11.5-14.5)
[2018-12-09 10:14] LABS: T3 TOTAL 0.99 ng/mL
[2018-12-09 11:44] VITALS: BP 164/96
== END 2018-12-09 12:24 | disposition home or self-care (01) ==
LOC: ED 08:46
PROVIDERS: Specialist
DX: J20.9 Acute bronchitis, unspecified (principal); R07.89 Other chest pain; F10.20 Alcohol dependence, uncomplicated; J45.909 Unspecified asthma, uncomplicated; I10 Essential (primary) hypertension; Z90.89 Acquired absence of other organs
CPT/HCPCS: 84439; 87804; G0480; J1885; J7030; Q0092

== ENCOUNTER 2018-12-10 06:38 | Emergency (ER) | payer OTHER ==
[~2018-12-10] VITALS: Ht 180.3 cm; Wt 78.9 kg
[2018-12-10 06:43] VITALS: Ht 180.3 cm; Wt 78.9 kg
[2018-12-10 09:42] LABS: BASOPHIL % 0.9 % (0-2); PLATELET COUNT 184 x10^3mcL (130-400)
[2018-12-10 10:09] LABS: CALCIUM 9.5 mg/dL (8.5-10.1); CARBON DIOXIDE 28.6 mmol/L (21-32); CHLORIDE SERUM 94 mmol/L (98-107); CREATININE SERUM 0.7 mg/dL (0.7-1.3); GFR1 > 60 mL/min; GLUCOSE SERUM 97 mg/dL (74-106); POTASSIUM SERUM 4.7 mmol/L (3.5-5.1); SODIUM SERUM 126 mmol/L (136-145)
[2018-12-10 10:25] LABS: ALBUMIN 4.2 g/dL (3.4-5.0); ALKALINE PHOSPHATASE 129 U/L (46-116); ALT/SGPT 30 U/L (16-63); AST/SGOT 45 U/L (15-37); BILIRUBIN TOTAL 0.61 mg/dL (0.20-1.00)
[2018-12-10 10:29] LABS: TOTAL PROTEIN, SERUM 8.4 g/dL (6.4-8.2)
[2018-12-10 10:33] VITALS: BP 119/87
== END 2018-12-10 13:35 | disposition home or self-care (01) ==
LOC: ED 06:38
PROVIDERS: Specialist
DX: R07.89 Other chest pain (principal); R56.9 Unspecified convulsions; F10.20 Alcohol dependence, uncomplicated; J45.909 Unspecified asthma, uncomplicated; I10 Essential (primary) hypertension; K21.9 Gastro-esophageal reflux disease without esophagitis; F41.9 Anxiety disorder, unspecified; F32.9 Major depressive disorder, single episode, unspecified; E87.1 Hypo-osmolality and hyponatremia; Y90.9 Presence of alcohol in blood, level not specified
CPT/HCPCS: J1953; J3475; J3490; J7030; Q0092

== ENCOUNTER 2018-12-10 18:29 | Emergency (ER) | payer OTHER ==
[~2018-12-10] VITALS: Ht 182.9 cm; Wt 65.8 kg
[2018-12-10 19:36] VITALS: Ht 182.9 cm; Wt 65.8 kg
[2018-12-10 20:31] LABS: BASOPHIL % 0.6 % (0-2); PLATELET COUNT 190 x10^3mcL (130-400)
[2018-12-10 20:32] LABS: RED CELL DISTRIBUTION WIDTH 18.2 % (11.5-14.5)
[2018-12-10 20:43] LABS: CALCIUM 9.4 mg/dL (8.5-10.1); CARBON DIOXIDE 27.3 mmol/L (21-32); CHLORIDE SERUM 97 mmol/L (98-107); CREATININE SERUM 0.8 mg/dL (0.7-1.3); GFR1 > 60 mL/min; GLUCOSE SERUM 94 mg/dL (74-106); POTASSIUM SERUM 3.9 mmol/L (3.5-5.1); SODIUM SERUM 137 mmol/L (136-145)
[2018-12-10 20:47] LABS: ALBUMIN 4.1 g/dL (3.4-5.0); ALKALINE PHOSPHATASE 125 U/L (46-116); ALT/SGPT 30 U/L (16-63); AST/SGOT 41 U/L (15-37); BILIRUBIN TOTAL 0.53 mg/dL (0.20-1.00); TOTAL PROTEIN, SERUM 8.2 g/dL (6.4-8.2)
[2018-12-10 21:50] LABS: microscopic required? NO
[2018-12-10 22:13] LABS: urine erythrocyte NEGATIVE (NEGATIVE)
[2018-12-10 22:29] LABS: AMPHETAMINE QUAL UR NONE DETECTED (See below)
[2018-12-10 23:01] VITALS: BP 131/87
== END 2018-12-10 23:01 | disposition home or self-care (01) ==
LOC: ED 18:29
PROVIDERS: Emergency Medicine
DX: R25.1 Tremor, unspecified (principal); R68.83 Chills (without fever); I10 Essential (primary) hypertension; K21.9 Gastro-esophageal reflux disease without esophagitis; K74.60 Unspecified cirrhosis of liver; F41.9 Anxiety disorder, unspecified; F32.9 Major depressive disorder, single episode, unspecified; J45.909 Unspecified asthma, uncomplicated; Z90.89 Acquired absence of other organs; Z98.890 Other specified postprocedural states; Z79.899 Other long term (current) drug therapy
CPT/HCPCS: 36415

== ENCOUNTER 2018-12-23 19:39 | Emergency (ER) | payer OTHER ==
[~2018-12-23] VITALS: Ht 177.8 cm; Wt 84.4 kg
[2018-12-23 19:49] VITALS: Ht 177.8 cm; Wt 84.4 kg
[2018-12-23 21:03] VITALS: BP 109/76
== END 2018-12-23 21:03 | disposition left against medical advice (07) ==
LOC: ED 19:39
DX: R05 Cough (principal); J45.909 Unspecified asthma, uncomplicated; I10 Essential (primary) hypertension; F10.10 Alcohol abuse, uncomplicated; Z90.89 Acquired absence of other organs; K21.9 Gastro-esophageal reflux disease without esophagitis; Z13.89 Encounter for screening for other disorder

== ENCOUNTER 2018-12-24 14:31 | Emergency (ER) | payer OTHER | END 2018-12-24 16:21 | disposition left against medical advice (07) | LOC: ED 14:31 | DX: Z53.21 Procedure and treatment not carried out due to patient leaving prior to being seen by health care provider (principal) ==

== ENCOUNTER 2018-12-31 14:53 | Emergency (ER) | payer OTHER ==
[~2018-12-31] VITALS: Ht 177.8 cm; Wt 83.9 kg
[2018-12-31 15:20] VITALS: BP 110/66; Ht 177.8 cm; Wt 83.9 kg
== END 2018-12-31 16:33 | disposition home or self-care (01) ==
LOC: ED 14:53
DX: R07.89 Other chest pain (principal); R00.0 Tachycardia, unspecified; F10.20 Alcohol dependence, uncomplicated; J45.909 Unspecified asthma, uncomplicated; I10 Essential (primary) hypertension; Z90.89 Acquired absence of other organs; Z98.890 Other specified postprocedural states
CPT/HCPCS: J1885; J7030

== ENCOUNTER 2019-06-29 08:18 | Emergency (ER) | payer OTHER ==
[~2019-06-29] VITALS: Ht 172.7 cm; Wt 68.0 kg
[2019-06-29 08:26] VITALS: Ht 172.7 cm; Wt 68.0 kg
[2019-06-29 09:55] LABS: BASOPHIL % 0.1 % (0-2)
[2019-06-29 09:58] LABS: PLATELET COUNT 73 x10^3mcL (130-400); RED CELL DISTRIBUTION WIDTH 22.3 % (11.5-14.5); rbc morphology (normal/abnorm) ABNORMAL (NORMAL)
[2019-06-29 10:07] LABS: CALCIUM 8.4 mg/dL (8.5-10.1); CARBON DIOXIDE 20.9 mmol/L (21-32); CHLORIDE SERUM 98 mmol/L (98-107); CREATININE SERUM 0.8 mg/dL (0.7-1.3); GFR1 > 60 mL/min; GLUCOSE SERUM 66 mg/dL (74-106); POTASSIUM SERUM 4.1 mmol/L (3.5-5.1); SODIUM SERUM 138 mmol/L (136-145)
[2019-06-29 10:13] LABS: ALBUMIN 4.5 g/dL (3.4-5.0); ALKALINE PHOSPHATASE 127 U/L (46-116); ALT/SGPT 79 U/L (16-63); AST/SGOT 175 U/L (15-37); BILIRUBIN TOTAL 1.05 mg/dL (0.20-1.00); TOTAL PROTEIN, SERUM 8.2 g/dL (6.4-8.2)
[2019-06-29 16:23] VITALS: BP 119/75
== END 2019-06-29 16:20 | disposition home or self-care (01) ==
LOC: ED 08:18
PROVIDERS: Emergency Medicine
DX: F10.10 Alcohol abuse, uncomplicated (principal); J45.909 Unspecified asthma, uncomplicated; I10 Essential (primary) hypertension
CPT/HCPCS: 80168; 82962; G0480; J1953; J2405; J3490; J7030; Q0092

== ENCOUNTER 2019-07-04 15:20 | Emergency (ER) | payer OTHER ==
[~2019-07-04] VITALS: Ht 177.8 cm; Wt 79.4 kg
[2019-07-04 15:26] VITALS: Ht 177.8 cm; Wt 79.4 kg
[2019-07-04 19:02] VITALS: BP 134/82
== END 2019-07-04 19:02 | disposition home or self-care (01) ==
LOC: ED 15:20
DX: F10.129 Alcohol abuse with intoxication, unspecified (principal); J45.909 Unspecified asthma, uncomplicated; I10 Essential (primary) hypertension; F41.9 Anxiety disorder, unspecified; F32.9 Major depressive disorder, single episode, unspecified; Y90.8 Blood alcohol level of 240 mg/100 ml or more; Z90.89 Acquired absence of other organs
CPT/HCPCS: J7030

== ENCOUNTER 2019-07-07 01:18 | Emergency (ER) | payer OTHER ==
[~2019-07-07] VITALS: Ht 182.9 cm; Wt 77.1 kg
[2019-07-07 01:28] VITALS: Ht 182.9 cm; Wt 77.1 kg
[2019-07-07 04:51] VITALS: BP 114/77
== END 2019-07-07 04:51 | disposition home or self-care (01) ==
LOC: ED 01:18
DX: M79.10 Myalgia, unspecified site (principal); J45.909 Unspecified asthma, uncomplicated; I10 Essential (primary) hypertension; K74.60 Unspecified cirrhosis of liver

== ENCOUNTER 2019-07-08 11:07 | Emergency (ER) | payer OTHER ==
[~2019-07-08] VITALS: Ht 182.9 cm; Wt 77.1 kg
[2019-07-08 11:26] VITALS: Ht 182.9 cm; Wt 77.1 kg
[2019-07-08 18:13] VITALS: BP 121/81
== END 2019-07-08 18:13 | disposition home or self-care (01) ==
LOC: ED 11:07
DX: F10.129 Alcohol abuse with intoxication, unspecified (principal); J45.909 Unspecified asthma, uncomplicated; I10 Essential (primary) hypertension; Z90.89 Acquired absence of other organs; Z98.890 Other specified postprocedural states; Y90.8 Blood alcohol level of 240 mg/100 ml or more

== ENCOUNTER 2019-07-10 12:40 | Emergency (ER) | payer OTHER ==
[~2019-07-10] VITALS: Ht 177.8 cm; Wt 81.6 kg
[2019-07-10 13:13] VITALS: Ht 177.8 cm; Wt 81.6 kg
[2019-07-10 18:30] VITALS: BP 106/77
== END 2019-07-10 18:30 | disposition left against medical advice (07) ==
LOC: ED 12:40
DX: S39.012A Strain of muscle, fascia and tendon of lower back, initial encounter (principal); F10.129 Alcohol abuse with intoxication, unspecified; G40.909 Epilepsy, unspecified, not intractable, without status epilepticus; X58.XXXA Exposure to other specified factors, initial encounter; Y93.89 Activity, other specified; Y92.89 Other specified places as the place of occurrence of the external cause; Y99.8 Other external cause status
CPT/HCPCS: J2405; J7030

== ENCOUNTER 2019-07-10 23:14 | Emergency (ER) | payer OTHER ==
[~2019-07-10] VITALS: Ht 182.9 cm; Wt 77.1 kg
[2019-07-10 23:23] VITALS: Ht 182.9 cm; Wt 77.1 kg
[2019-07-11 06:05] VITALS: BP 112/69
== END 2019-07-11 05:06 | disposition home or self-care (01) ==
LOC: ED 23:14
DX: M54.5 Low back pain (principal); F10.129 Alcohol abuse with intoxication, unspecified; J45.909 Unspecified asthma, uncomplicated; I10 Essential (primary) hypertension; Z98.890 Other specified postprocedural states
CPT/HCPCS: J1885

== ENCOUNTER 2019-07-19 21:08 | Emergency (ER) | payer OTHER ==
[~2019-07-19] VITALS: Ht 180.3 cm; Wt 72.6 kg
[2019-07-19 21:24] VITALS: BP 118/80; Ht 180.3 cm; Wt 72.6 kg
[2019-07-19 21:46] LABS: RED CELL DISTRIBUTION WIDTH 24.5 % (11.5-14.5)
[2019-07-19 21:47] LABS: PLATELET COUNT 43 x10^3mcL (130-400)
[2019-07-19 21:51] LABS: CALCIUM 8.3 mg/dL (8.5-10.1); CARBON DIOXIDE 27.5 mmol/L (21-32); CHLORIDE SERUM 97 mmol/L (98-107); CREATININE SERUM 0.9 mg/dL (0.7-1.3); GFR1 > 60 mL/min; GLUCOSE SERUM 89 mg/dL (74-106); POTASSIUM SERUM 3.9 mmol/L (3.5-5.1); SODIUM SERUM 137 mmol/L (136-145)
[2019-07-19 21:56] LABS: ALBUMIN 4.3 g/dL (3.4-5.0); ALKALINE PHOSPHATASE 117 U/L (46-116); ALT/SGPT 122 U/L (16-63); AMYLASE 107 U/L (25-115); AST/SGOT 231 U/L (15-37); LIPASE 993 IU/L (73-393); TOTAL PROTEIN, SERUM 7.6 g/dL (6.4-8.2)
[2019-07-19 22:05] LABS: BAND NEUTROPHIL 0 % (0-10); BASOPHIL 0 % (0-2); METAMYELOCTE 1 % (0-2); MONOCYTE 1 % (0-7); SEGMENTED NEUTROPHILS 23 % (37-75)
[2019-07-19 22:08] LABS: PLATELET MORPHOLOGY PLATELETS DECREASED; rbc morphology (normal/abnorm) ABNORMAL (NORMAL); target cell (codocyte) 1+
== END 2019-07-19 22:06 | disposition left against medical advice (07) ==
LOC: ED 21:08
PROVIDERS: Emergency Medicine
DX: T51.91XA Toxic effect of unspecified alcohol, accidental (unintentional), initial encounter (principal); R40.4 Transient alteration of awareness; Y92.89 Other specified places as the place of occurrence of the external cause
CPT/HCPCS: 36415; G0480

== ENCOUNTER 2019-07-20 18:59 | Emergency (ER) | payer OTHER ==
[~2019-07-20] VITALS: Ht 175.3 cm; Wt 77.1 kg
[2019-07-20 19:50] VITALS: BP 124/92; Ht 175.3 cm; Wt 77.1 kg
[2019-07-20 21:08] LABS: PLATELET COUNT 46 x10^3mcL (130-400); RED CELL DISTRIBUTION WIDTH 24.5 % (11.5-14.5)
[2019-07-20 21:17] LABS: CALCIUM 8.4 mg/dL (8.5-10.1); CARBON DIOXIDE 26.6 mmol/L (21-32); CHLORIDE SERUM 97 mmol/L (98-107); CREATININE SERUM 0.8 mg/dL (0.7-1.3); GFR1 > 60 mL/min; GLUCOSE SERUM 85 mg/dL (74-106); POTASSIUM SERUM 4.1 mmol/L (3.5-5.1); SODIUM SERUM 138 mmol/L (136-145)
[2019-07-20 21:20] LABS: MONOCYTE 2 % (0-7); SEGMENTED NEUTROPHILS 16 % (37-75)
[2019-07-20 21:22] LABS: ALBUMIN 4.4 g/dL (3.4-5.0); ALKALINE PHOSPHATASE 130 U/L (46-116); ALT/SGPT 134 U/L (16-63); AST/SGOT 279 U/L (15-37); BILIRUBIN TOTAL 1.03 mg/dL (0.20-1.00); TOTAL PROTEIN, SERUM 7.7 g/dL (6.4-8.2)
[2019-07-20 21:24] LABS: PLATELET MORPHOLOGY PLATELETS DECREASED; rbc morphology (normal/abnorm) ABNORMAL (NORMAL); target cell (codocyte) 1+
== END 2019-07-20 21:45 | disposition left against medical advice (07) ==
LOC: ED 18:59
PROVIDERS: Emergency Medicine
DX: F10.129 Alcohol abuse with intoxication, unspecified (principal); D72.819 Decreased white blood cell count, unspecified; I10 Essential (primary) hypertension; F41.9 Anxiety disorder, unspecified; F32.9 Major depressive disorder, single episode, unspecified; K21.9 Gastro-esophageal reflux disease without esophagitis; K74.60 Unspecified cirrhosis of liver
CPT/HCPCS: J1885; J2405; J7030

== ENCOUNTER 2019-07-30 13:17 | Emergency (ER) | payer OTHER ==
[~2019-07-30] VITALS: Ht 182.9 cm; Wt 74.8 kg
[2019-07-30 13:46] VITALS: Ht 182.9 cm; Wt 74.8 kg
[2019-07-30 14:52] VITALS: BP 113/67
== END 2019-07-30 14:52 | disposition home or self-care (01) ==
LOC: ED 13:17
DX: F10.229 Alcohol dependence with intoxication, unspecified (principal); J45.909 Unspecified asthma, uncomplicated; I10 Essential (primary) hypertension; K21.9 Gastro-esophageal reflux disease without esophagitis

== ENCOUNTER 2019-07-31 04:16 | Emergency (ER) | payer OTHER ==
[~2019-07-31] VITALS: Ht 180.3 cm; Wt 74.8 kg
[2019-07-31 04:26] VITALS: Ht 180.3 cm; Wt 74.8 kg
[2019-07-31 06:38] VITALS: BP 119/78
== END 2019-07-31 06:38 | disposition home or self-care (01) ==
LOC: ED 04:16
DX: J18.9 Pneumonia, unspecified organism (principal); F10.129 Alcohol abuse with intoxication, unspecified; I10 Essential (primary) hypertension; F41.9 Anxiety disorder, unspecified; F32.9 Major depressive disorder, single episode, unspecified; K70.30 Alcoholic cirrhosis of liver without ascites; Z98.890 Other specified postprocedural states
CPT/HCPCS: Q0092; Q0162

== ENCOUNTER 2019-08-05 12:05 | Emergency (ER) | payer OTHER | END 2019-08-05 12:14 | disposition left against medical advice (07) | LOC: ED 12:05 | DX: Z53.21 Procedure and treatment not carried out due to patient leaving prior to being seen by health care provider (principal) ==

== ENCOUNTER 2019-08-10 00:54 | Emergency (ER) | payer OTHER ==
[~2019-08-10] VITALS: Ht 182.9 cm; Wt 74.8 kg
[2019-08-10 01:11] VITALS: Ht 182.9 cm; Wt 74.8 kg
[2019-08-10 01:46] LABS: CALCIUM 8.2 mg/dL (8.5-10.1); CARBON DIOXIDE 32.1 mmol/L (21-32); CHLORIDE SERUM 101 mmol/L (98-107); CREATININE SERUM 0.7 mg/dL (0.7-1.3); GFR1 > 60 mL/min; GLUCOSE SERUM 95 mg/dL (74-106); POTASSIUM SERUM 4.2 mmol/L (3.5-5.1); SODIUM SERUM 142 mmol/L (136-145)
[2019-08-10 01:50] LABS: ALBUMIN 4.2 g/dL (3.4-5.0); ALKALINE PHOSPHATASE 114 U/L (46-116); ALT/SGPT 73 U/L (16-63); AST/SGOT 144 U/L (15-37); BILIRUBIN TOTAL 0.56 mg/dL (0.20-1.00); MAGNESIUM 2.2 mg/dL (1.8-2.4); TOTAL PROTEIN, SERUM 7.7 g/dL (6.4-8.2)
[2019-08-10 06:49] VITALS: BP 101/77
== END 2019-08-10 06:49 | disposition home or self-care (01) ==
LOC: ED 00:54
PROVIDERS: Emergency Medicine
DX: F10.129 Alcohol abuse with intoxication, unspecified (principal); R56.9 Unspecified convulsions; J45.909 Unspecified asthma, uncomplicated; I10 Essential (primary) hypertension; Z90.89 Acquired absence of other organs; Z98.890 Other specified postprocedural states
CPT/HCPCS: J1953

== ENCOUNTER 2019-08-12 17:48 | Emergency (ER) | payer OTHER | END 2019-08-12 17:59 | disposition left against medical advice (07) | LOC: ED 17:48 | DX: Z53.21 Procedure and treatment not carried out due to patient leaving prior to being seen by health care provider (principal) ==

== ENCOUNTER 2019-08-19 15:47 | Emergency (ER) | payer OTHER ==
[~2019-08-19] VITALS: Ht 182.9 cm; Wt 68.5 kg
[2019-08-19 15:49] VITALS: Ht 182.9 cm; Wt 68.5 kg
[2019-08-19 17:30] LABS: PLATELET COUNT 60 x10^3mcL (130-400); RED CELL DISTRIBUTION WIDTH 19.5 % (11.5-14.5)
[2019-08-19 17:32] LABS: CALCIUM 8.3 mg/dL (8.5-10.1); CARBON DIOXIDE 27.6 mmol/L (21-32); CHLORIDE SERUM 98 mmol/L (98-107); CREATININE SERUM 0.8 mg/dL (0.7-1.3); GFR1 > 60 mL/min; GLUCOSE SERUM 101 mg/dL (74-106); POTASSIUM SERUM 4.2 mmol/L (3.5-5.1); SODIUM SERUM 136 mmol/L (136-145)
[2019-08-19 17:37] LABS: ALBUMIN 4.1 g/dL (3.4-5.0); ALKALINE PHOSPHATASE 108 U/L (46-116); ALT/SGPT 65 U/L (16-63); AST/SGOT 141 U/L (15-37); BILIRUBIN TOTAL 0.43 mg/dL (0.20-1.00); TOTAL PROTEIN, SERUM 7.4 g/dL (6.4-8.2)
[2019-08-19 17:46] LABS: BAND NEUTROPHIL 0 % (0-10); BASOPHIL 0 % (0-2); MONOCYTE 12 % (0-7); SEGMENTED NEUTROPHILS 55 % (37-75); rbc morphology (normal/abnorm) ABNORMAL (NORMAL)
[2019-08-19 18:41] VITALS: BP 114/82
== END 2019-08-19 18:41 | disposition home or self-care (01) ==
LOC: ED 15:47
PROVIDERS: Emergency Medicine
DX: F10.129 Alcohol abuse with intoxication, unspecified (principal); R10.13 Epigastric pain; R11.10 Vomiting, unspecified; J45.909 Unspecified asthma, uncomplicated; I10 Essential (primary) hypertension; Z98.890 Other specified postprocedural states
CPT/HCPCS: J2060; J7030; Q0092

== ENCOUNTER 2019-08-22 17:30 | Emergency (ER) | payer OTHER ==
[~2019-08-22] VITALS: Ht 177.8 cm; Wt 90.7 kg
[2019-08-22 17:33] VITALS: Ht 177.8 cm; Wt 90.7 kg
[2019-08-22 17:50] VITALS: BP 117/94
== END 2019-08-22 17:50 | disposition other institution (70) ==
LOC: ED 17:30
DX: Z02.89 Encounter for other administrative examinations (principal)

== ENCOUNTER 2019-08-25 12:30 | Emergency (ER) | payer OTHER ==
[~2019-08-25] VITALS: Ht 172.7 cm; Wt 63.5 kg
[2019-08-25 12:30] VITALS: BP 145/75; Ht 172.7 cm; Wt 63.5 kg
== END 2019-08-25 13:03 | disposition other institution (70) ==
LOC: ED 12:30
DX: Z02.89 Encounter for other administrative examinations (principal)

== ENCOUNTER 2019-08-25 23:06 | Emergency (ER) | payer OTHER ==
[~2019-08-25] VITALS: Ht 182.9 cm; Wt 74.8 kg
[2019-08-25 23:15] VITALS: Ht 182.9 cm; Wt 74.8 kg
[2019-08-25 23:50] LABS: BASOPHIL % 0 % (0-2); CALCIUM 8.4 mg/dL (8.5-10.1); CHLORIDE SERUM 100 mmol/L (98-107); CREATININE SERUM 0.6 mg/dL (0.7-1.3); GFR1 > 60 mL/min; GLUCOSE SERUM 96 mg/dL (74-106); PLATELET COUNT 82 x10^3mcL (130-400); POTASSIUM SERUM 3.8 mmol/L (3.5-5.1); RED CELL DISTRIBUTION WIDTH 18.5 % (11.5-14.5); SODIUM SERUM 137 mmol/L (136-145)
[2019-08-25 23:58] LABS: ALBUMIN 3.9 g/dL (3.4-5.0); ALKALINE PHOSPHATASE 105 U/L (46-116); ALT/SGPT 67 U/L (16-63); AST/SGOT 105 U/L (15-37); BILIRUBIN TOTAL 0.4 mg/dL (0.20-1.00); LIPASE 1075 IU/L (73-393)
[2019-08-26 06:49] VITALS: BP 134/80
== END 2019-08-26 06:49 | disposition home or self-care (01) ==
LOC: ED 23:06
PROVIDERS: Emergency Medicine
DX: K86.0 Alcohol-induced chronic pancreatitis (principal); F10.10 Alcohol abuse, uncomplicated; J45.909 Unspecified asthma, uncomplicated; I10 Essential (primary) hypertension; K21.9 Gastro-esophageal reflux disease without esophagitis; F41.9 Anxiety disorder, unspecified; F32.9 Major depressive disorder, single episode, unspecified; Y90.5 Blood alcohol level of 100-119 mg/100 ml
CPT/HCPCS: G0480; J7030; Q0092; Q0162

== ENCOUNTER 2019-09-13 01:01 | Emergency (ER) | payer OTHER ==
[~2019-09-13] VITALS: Ht 182.9 cm; Wt 77.1 kg
[2019-09-13 01:10] VITALS: Ht 182.9 cm; Wt 77.1 kg
[2019-09-13 02:12] LABS: CALCIUM 7.6 mg/dL (8.5-10.1); CARBON DIOXIDE 26.5 mmol/L (21-32); CHLORIDE SERUM 103 mmol/L (98-107); CREATININE SERUM 1.1 mg/dL (0.7-1.3); GFR1 > 60 mL/min; GLUCOSE SERUM 92 mg/dL (74-106); POTASSIUM SERUM 4.5 mmol/L (3.5-5.1); SODIUM SERUM 142 mmol/L (136-145)
[2019-09-13 02:17] LABS: ALBUMIN 3.7 g/dL (3.4-5.0); ALKALINE PHOSPHATASE 160 U/L (46-116); ALT/SGPT 102 U/L (16-63); AST/SGOT 74 U/L (15-37); BILIRUBIN TOTAL 0.17 mg/dL (0.20-1.00); LIPASE 1016 IU/L (73-393); TOTAL PROTEIN, SERUM 6.8 g/dL (6.4-8.2)
[2019-09-13 02:19] LABS: BASOPHIL % 1.5 % (0-2); PLATELET COUNT 305 x10^3mcL (130-400)
[2019-09-13 02:21] LABS: RED CELL DISTRIBUTION WIDTH 15.1 % (11.5-14.5)
[2019-09-13 03:49] LABS: microscopic required? YES; urine erythrocyte TRACE (NEGATIVE)
[2019-09-13 07:10] VITALS: BP 104/73
== END 2019-09-13 07:10 | disposition home or self-care (01) ==
LOC: ED 01:01
PROVIDERS: Emergency Medicine
DX: F10.129 Alcohol abuse with intoxication, unspecified (principal); J45.909 Unspecified asthma, uncomplicated; I10 Essential (primary) hypertension; K21.9 Gastro-esophageal reflux disease without esophagitis; F41.9 Anxiety disorder, unspecified; F32.9 Major depressive disorder, single episode, unspecified; K70.30 Alcoholic cirrhosis of liver without ascites
CPT/HCPCS: G0480; J0696; J1885; J7030; J7060; Q0092

== ENCOUNTER 2019-09-14 01:52 | Emergency (ER) | payer OTHER ==
[~2019-09-14] VITALS: Ht 182.9 cm; Wt 77.1 kg
[2019-09-14 01:58] VITALS: BP 107/74
== END 2019-09-14 01:55 | disposition other institution (70) ==
LOC: ED 01:52
DX: Z02.89 Encounter for other administrative examinations (principal)

== ENCOUNTER 2019-12-18 14:38 | Emergency (ER) | payer OTHER ==
[~2019-12-18] VITALS: Ht 182.9 cm; Wt 79.4 kg
[2019-12-18 17:10] VITALS: BP 130/98
== END 2019-12-18 17:10 | disposition home or self-care (01) ==
LOC: ED 14:38
DX: N39.0 Urinary tract infection, site not specified (principal); F10.239 Alcohol dependence with withdrawal, unspecified; J45.909 Unspecified asthma, uncomplicated; K21.9 Gastro-esophageal reflux disease without esophagitis; Z98.890 Other specified postprocedural states

== ENCOUNTER 2019-12-29 13:29 | Emergency (ER) | payer OTHER | END 2019-12-29 14:24 | disposition other institution (70) | LOC: ED 13:29 | DX: Z02.89 Encounter for other administrative examinations (principal) ==

== ENCOUNTER 2019-12-29 13:29 | Emergency (ER) | payer OTHER ==
[~2019-12-29] VITALS: Ht 182.9 cm; Wt 74.8 kg
[2019-12-29 13:44] VITALS: Ht 182.9 cm; Wt 74.8 kg
[2019-12-29 14:24] VITALS: BP 110/66
== END 2019-12-29 14:24 | disposition other institution (70) ==
LOC: ED 13:29
DX: G40.909 Epilepsy, unspecified, not intractable, without status epilepticus (principal); F32.9 Major depressive disorder, single episode, unspecified; F17.210 Nicotine dependence, cigarettes, uncomplicated; J45.909 Unspecified asthma, uncomplicated; I10 Essential (primary) hypertension; K21.9 Gastro-esophageal reflux disease without esophagitis; Z59.0 Homelessness; Z98.890 Other specified postprocedural states
CPT/HCPCS: 99406

== ENCOUNTER 2020-01-07 17:40 | Emergency (ER) | payer OTHER ==
[~2020-01-07] VITALS: Ht 180.3 cm; Wt 72.6 kg
[2020-01-07 17:46] VITALS: Ht 180.3 cm; Wt 72.6 kg
[2020-01-07 18:33] VITALS: BP 130/74
== END 2020-01-07 18:34 | disposition other institution (70) ==
LOC: ED 17:40
DX: Z02.89 Encounter for other administrative examinations (principal)

== ENCOUNTER 2020-02-21 08:43 | Emergency (ER) | payer OTHER ==
[~2020-02-21] VITALS: Ht 182.9 cm; Wt 77.1 kg
[2020-02-21 10:16] LABS: PLATELET COUNT 71 x10^3mcL (130-400); RED CELL DISTRIBUTION WIDTH 20.2 % (11.5-14.5)
[2020-02-21 10:49] LABS: ALBUMIN 3.9 g/dL (3.4-5.0); ALKALINE PHOSPHATASE 98 U/L (46-116); ALT/SGPT 108 U/L (16-63); AST/SGOT 169 U/L (15-37); BILIRUBIN TOTAL 0.5 mg/dL (0.20-1.00); CALCIUM 8.4 mg/dL (8.5-10.1); CARBON DIOXIDE 26.6 mmol/L (21-32); CHLORIDE SERUM 90 mmol/L (98-107); CHOLESTEROL 187 mg/dL (<200); CREATININE SERUM 0.5 mg/dL (0.7-1.3); GFR1 > 60 mL/min; GLUCOSE SERUM 85 mg/dL (74-106); LIPASE 603 IU/L (73-393); POTASSIUM SERUM 4.2 mmol/L (3.5-5.1); SODIUM SERUM 128 mmol/L (136-145); TOTAL PROTEIN, SERUM 7.1 g/dL (6.4-8.2); TRIGLYCERIDES 38 mg/dL (<150)
[2020-02-21 10:53] LABS: BAND NEUTROPHIL 1 % (0-10); BASOPHIL 0 % (0-2); MONOCYTE 5 % (0-7); SEGMENTED NEUTROPHILS 83 % (37-75)
[2020-02-21 10:54] LABS: PLATELET MORPHOLOGY PLATELETS DECREASED; rbc morphology (normal/abnorm) ABNORMAL (NORMAL)
[2020-02-21 10:57] LABS: HDL CHOLESTEROL 94 mg/dL (40-60)
[2020-02-21 10:58] LABS: microscopic required? NO
[2020-02-21 11:03] LABS: UA SPECIFIC GRAVITY 1.015 (1.005-1.035); urine erythrocyte NEGATIVE (NEGATIVE)
[2020-02-21 15:14] VITALS: BP 128/82
== END 2020-02-21 15:16 | disposition home or self-care (01) ==
LOC: ED 08:43
PROVIDERS: Specialist
DX: E87.1 Hypo-osmolality and hyponatremia (principal); R11.2 Nausea with vomiting, unspecified; R19.7 Diarrhea, unspecified; F10.20 Alcohol dependence, uncomplicated; J45.909 Unspecified asthma, uncomplicated; I10 Essential (primary) hypertension; M06.9 Rheumatoid arthritis, unspecified; Y90.9 Presence of alcohol in blood, level not specified
CPT/HCPCS: J7030; Q0162

== ENCOUNTER 2020-02-21 16:17 | Emergency (ER) | payer OTHER ==
[~2020-02-21] VITALS: Ht 182.9 cm; Wt 77.1 kg
[2020-02-21 17:16] VITALS: Ht 182.9 cm; Wt 77.1 kg
[2020-02-21 22:59] VITALS: BP 124/75
== END 2020-02-21 22:59 | disposition home or self-care (01) ==
LOC: ED 16:17
DX: F10.229 Alcohol dependence with intoxication, unspecified (principal); R11.2 Nausea with vomiting, unspecified; R19.7 Diarrhea, unspecified; J45.909 Unspecified asthma, uncomplicated; I10 Essential (primary) hypertension; M06.9 Rheumatoid arthritis, unspecified; Z90.89 Acquired absence of other organs; Y90.9 Presence of alcohol in blood, level not specified
CPT/HCPCS: 82962; J2060

== ENCOUNTER 2020-03-19 12:25 | Emergency (ER) | payer OTHER | END 2020-03-19 13:24 | disposition other institution (70) | LOC: CANPREER → ED 12:25 | DX: Z02.89 Encounter for other administrative examinations (principal) ==

== ENCOUNTER 2020-03-19 12:25 | Emergency (ER) | payer OTHER ==
[~2020-03-19] VITALS: Ht 182.9 cm; Wt 77.1 kg
[2020-03-19 12:31] VITALS: Ht 182.9 cm; Wt 77.1 kg
[2020-03-19 13:24] VITALS: BP 115/87
== END 2020-03-19 13:24 | disposition other institution (70) ==
LOC: ED 12:25
DX: F10.239 Alcohol dependence with withdrawal, unspecified (principal); J45.909 Unspecified asthma, uncomplicated; I10 Essential (primary) hypertension; K21.9 Gastro-esophageal reflux disease without esophagitis; M06.9 Rheumatoid arthritis, unspecified; Z98.890 Other specified postprocedural states
CPT/HCPCS: 82962

== ENCOUNTER 2020-04-08 13:41 | Emergency (ER) | payer OTHER ==
[~2020-04-08] VITALS: Ht 182.9 cm; Wt 79.4 kg
[2020-04-08 13:46] VITALS: Ht 182.9 cm; Wt 79.4 kg
[2020-04-08 18:16] VITALS: BP 134/71
== END 2020-04-08 16:20 | disposition home or self-care (01) ==
LOC: ED 13:41
DX: F10.129 Alcohol abuse with intoxication, unspecified (principal); J45.909 Unspecified asthma, uncomplicated; I10 Essential (primary) hypertension; K21.9 Gastro-esophageal reflux disease without esophagitis; Z90.49 Acquired absence of other specified parts of digestive tract

== ENCOUNTER 2020-04-13 14:23 | Emergency (ER) | payer OTHER ==
[~2020-04-13] VITALS: Ht 182.9 cm; Wt 77.1 kg
[2020-04-13 14:33] VITALS: Ht 182.9 cm; Wt 77.1 kg
[2020-04-13 18:08] VITALS: BP 122/78
== END 2020-04-13 18:09 | disposition home or self-care (01) ==
LOC: ED 14:23
DX: F10.129 Alcohol abuse with intoxication, unspecified (principal); J45.909 Unspecified asthma, uncomplicated; I10 Essential (primary) hypertension; K21.9 Gastro-esophageal reflux disease without esophagitis; M06.9 Rheumatoid arthritis, unspecified; Z98.890 Other specified postprocedural states

== ENCOUNTER 2020-04-24 15:02 | Emergency (ER) | payer OTHER ==
[~2020-04-24] VITALS: Ht 182.9 cm; Wt 75.7 kg
[2020-04-24 15:29] VITALS: Ht 182.9 cm; Wt 75.7 kg
[2020-04-25 05:31] VITALS: BP 148/99
== END 2020-04-25 05:31 | disposition home or self-care (01) ==
LOC: ED 15:02
DX: F10.129 Alcohol abuse with intoxication, unspecified (principal); J45.909 Unspecified asthma, uncomplicated; I10 Essential (primary) hypertension; K21.9 Gastro-esophageal reflux disease without esophagitis; M06.9 Rheumatoid arthritis, unspecified; Z98.890 Other specified postprocedural states

== ENCOUNTER 2020-04-30 20:44 | Emergency (ER) | payer OTHER ==
[~2020-04-30] VITALS: Ht 182.9 cm; Wt 74.8 kg
[2020-04-30 20:45] VITALS: Ht 182.9 cm; Wt 74.8 kg
[2020-05-01 05:31] VITALS: BP 120/69
== END 2020-05-01 05:31 | disposition home or self-care (01) ==
LOC: ED 20:44
DX: S02.2XXA Fracture of nasal bones, initial encounter for closed fracture (principal); J45.909 Unspecified asthma, uncomplicated; K21.9 Gastro-esophageal reflux disease without esophagitis; Z98.890 Other specified postprocedural states; Z59.0 Homelessness; Y04.8XXA Assault by other bodily force, initial encounter; Y93.89 Activity, other specified; Y92.89 Other specified places as the place of occurrence of the external cause; Y99.8 Other external cause status

== ENCOUNTER 2020-05-10 22:31 | Emergency (ER) | payer OTHER ==
[~2020-05-10] VITALS: Ht 185.4 cm; Wt 70.3 kg
[2020-05-10 22:47] VITALS: Ht 185.4 cm; Wt 70.3 kg
[2020-05-11 06:41] VITALS: BP 121/89
== END 2020-05-11 06:41 | disposition home or self-care (01) ==
LOC: ED 22:31
DX: F10.129 Alcohol abuse with intoxication, unspecified (principal); J45.909 Unspecified asthma, uncomplicated; I10 Essential (primary) hypertension; M06.9 Rheumatoid arthritis, unspecified; Y90.9 Presence of alcohol in blood, level not specified

== ENCOUNTER 2020-05-24 12:07 | Emergency (ER) | payer OTHER ==
[~2020-05-24] VITALS: Ht 172.7 cm; Wt 74.8 kg
[2020-05-24 12:27] VITALS: Ht 172.7 cm; Wt 74.8 kg
[2020-05-24 14:21] VITALS: BP 106/73
== END 2020-05-24 14:21 | disposition home or self-care (01) ==
LOC: ED 12:07
DX: F10.129 Alcohol abuse with intoxication, unspecified (principal); J45.909 Unspecified asthma, uncomplicated; I10 Essential (primary) hypertension; M06.9 Rheumatoid arthritis, unspecified; Z98.890 Other specified postprocedural states

== ENCOUNTER 2020-05-26 11:22 | Emergency (ER) | payer OTHER ==
[~2020-05-26] VITALS: Ht 182.9 cm; Wt 77.1 kg
[2020-05-26 11:32] VITALS: Ht 182.9 cm; Wt 77.1 kg
[2020-05-26 19:25] VITALS: BP 121/83
== END 2020-05-26 19:25 | disposition home or self-care (01) ==
LOC: ED 11:22
DX: F10.129 Alcohol abuse with intoxication, unspecified (principal); J45.909 Unspecified asthma, uncomplicated; I10 Essential (primary) hypertension; K74.60 Unspecified cirrhosis of liver; Z98.890 Other specified postprocedural states
CPT/HCPCS: J7030; Q0162

== ENCOUNTER 2020-05-29 01:41 | Emergency (ER) | payer OTHER ==
[~2020-05-29] VITALS: Ht 182.9 cm; Wt 74.8 kg
[2020-05-29 01:52] VITALS: Ht 182.9 cm; Wt 74.8 kg
[2020-05-29 02:43] LABS: CALCIUM 8.1 mg/dL (8.5-10.1); CARBON DIOXIDE 26.4 mmol/L (21-32); CHLORIDE SERUM 100 mmol/L (98-107); CREATININE SERUM 0.8 mg/dL (0.7-1.3); GFR1 > 60 mL/min; GLUCOSE SERUM 85 mg/dL (74-106); SODIUM SERUM 140 mmol/L (136-145)
[2020-05-29 06:08] VITALS: BP 92/62
== END 2020-05-29 06:08 | disposition home or self-care (01) ==
LOC: ED 01:41
PROVIDERS: Student in an Organized Health Care Education/Training Program
DX: R56.9 Unspecified convulsions (principal); R15.9 Full incontinence of feces; M06.9 Rheumatoid arthritis, unspecified; I10 Essential (primary) hypertension; J45.909 Unspecified asthma, uncomplicated
CPT/HCPCS: J1953

== ENCOUNTER 2020-05-31 22:50 | Emergency (ER) | payer OTHER ==
[~2020-05-31] VITALS: Ht 177.8 cm; Wt 86.2 kg
[2020-05-31 22:56] VITALS: Ht 177.8 cm; Wt 86.2 kg
[2020-06-01 06:24] VITALS: BP 103/72
== END 2020-06-01 06:24 | disposition home or self-care (01) ==
LOC: ED 22:50
DX: F10.20 Alcohol dependence, uncomplicated (principal); K21.9 Gastro-esophageal reflux disease without esophagitis; J45.909 Unspecified asthma, uncomplicated; I10 Essential (primary) hypertension; M06.9 Rheumatoid arthritis, unspecified; Z59.0 Homelessness; Y90.9 Presence of alcohol in blood, level not specified

== ENCOUNTER 2020-06-03 13:45 | Emergency (ER) | payer OTHER ==
[~2020-06-03] VITALS: Ht 175.3 cm; Wt 84.8 kg
[2020-06-03 14:14] VITALS: Ht 175.3 cm; Wt 84.8 kg
[2020-06-03 15:06] LABS: CALCIUM 8.2 mg/dL (8.5-10.1); CARBON DIOXIDE 27.7 mmol/L (21-32); CHLORIDE SERUM 101 mmol/L (98-107); CREATININE SERUM 0.7 mg/dL (0.7-1.3); GFR1 > 60 mL/min; GLUCOSE SERUM 104 mg/dL (74-106); POTASSIUM SERUM 4.1 mmol/L (3.5-5.1); SODIUM SERUM 141 mmol/L (136-145)
[2020-06-03 19:51] VITALS: BP 108/71
== END 2020-06-03 19:51 | disposition home or self-care (01) ==
LOC: ED 13:45
PROVIDERS: Emergency Medicine
DX: F10.129 Alcohol abuse with intoxication, unspecified (principal); J45.909 Unspecified asthma, uncomplicated; I10 Essential (primary) hypertension; K21.9 Gastro-esophageal reflux disease without esophagitis; M06.9 Rheumatoid arthritis, unspecified
CPT/HCPCS: G0480

== ENCOUNTER 2020-06-04 11:23 | Emergency (ER) | payer OTHER ==
[~2020-06-04] VITALS: Ht 172.7 cm; Wt 61.2 kg
[2020-06-04 11:26] VITALS: Ht 172.7 cm; Wt 61.2 kg
[2020-06-04 18:12] VITALS: BP 129/92
== END 2020-06-04 18:12 | disposition home or self-care (01) ==
LOC: ED 11:23
DX: F10.129 Alcohol abuse with intoxication, unspecified (principal); J45.909 Unspecified asthma, uncomplicated; I10 Essential (primary) hypertension; K21.9 Gastro-esophageal reflux disease without esophagitis; M06.9 Rheumatoid arthritis, unspecified; Z98.890 Other specified postprocedural states

== ENCOUNTER 2020-06-06 05:40 | Emergency (ER) | payer OTHER ==
[~2020-06-06] VITALS: Ht 182.9 cm; Wt 74.8 kg
[2020-06-06 07:25] LABS: CALCIUM 9.1 mg/dL (8.5-10.1); CARBON DIOXIDE 30.5 mmol/L (21-32); CHLORIDE SERUM 97 mmol/L (98-107); CREATININE SERUM 0.7 mg/dL (0.7-1.3); GFR1 > 60 mL/min; GLUCOSE SERUM 90 mg/dL (74-106); POTASSIUM SERUM 4.6 mmol/L (3.5-5.1); SODIUM SERUM 138 mmol/L (136-145)
[2020-06-06 14:40] VITALS: BP 130/86
== END 2020-06-06 14:40 | disposition home or self-care (01) ==
LOC: ED 05:40
PROVIDERS: Emergency Medicine
DX: F10.239 Alcohol dependence with withdrawal, unspecified (principal); J45.909 Unspecified asthma, uncomplicated; I10 Essential (primary) hypertension; M06.9 Rheumatoid arthritis, unspecified
CPT/HCPCS: G0480

== ENCOUNTER 2020-06-09 17:18 | Emergency (ER) | payer OTHER ==
[~2020-06-09] VITALS: Ht 182.9 cm; Wt 77.1 kg
[2020-06-09 17:22] VITALS: Ht 182.9 cm; Wt 77.1 kg
[2020-06-09 21:30] VITALS: BP 103/54
== END 2020-06-09 23:35 | disposition home or self-care (01) ==
LOC: ED 17:18
DX: F10.129 Alcohol abuse with intoxication, unspecified (principal); J45.909 Unspecified asthma, uncomplicated; I10 Essential (primary) hypertension; K21.9 Gastro-esophageal reflux disease without esophagitis; M06.9 Rheumatoid arthritis, unspecified; Z98.890 Other specified postprocedural states
CPT/HCPCS: Q0092

== ENCOUNTER 2020-06-16 10:30 | Emergency (ER) | payer OTHER | END 2020-06-16 10:51 | disposition left against medical advice (07) | LOC: ED 10:30 | DX: Z53.21 Procedure and treatment not carried out due to patient leaving prior to being seen by health care provider (principal) ==

== ENCOUNTER 2020-06-17 03:08 | Emergency (ER) | payer OTHER ==
[~2020-06-17] VITALS: Ht 182.9 cm; Wt 74.8 kg
[2020-06-17 03:16] VITALS: Ht 182.9 cm; Wt 74.8 kg
[2020-06-17 07:06] VITALS: BP 100/61
== END 2020-06-17 07:06 | disposition home or self-care (01) ==
LOC: ED 03:08
DX: F10.10 Alcohol abuse, uncomplicated (principal); K21.9 Gastro-esophageal reflux disease without esophagitis; J45.909 Unspecified asthma, uncomplicated; I10 Essential (primary) hypertension; M06.9 Rheumatoid arthritis, unspecified

== ENCOUNTER 2020-06-26 04:38 | Emergency (ER) | payer OTHER ==
[~2020-06-26] VITALS: Ht 182.9 cm; Wt 74.8 kg
[2020-06-26 04:46] VITALS: Ht 182.9 cm; Wt 74.8 kg
[2020-06-26 05:15] VITALS: BP 101/55
== END 2020-06-26 05:15 | disposition home or self-care (01) ==
LOC: ED 04:38
DX: F10.129 Alcohol abuse with intoxication, unspecified (principal); R06.02 Shortness of breath; I10 Essential (primary) hypertension; M06.9 Rheumatoid arthritis, unspecified

== ENCOUNTER 2020-06-27 22:07 | Emergency (ER) | payer OTHER ==
[~2020-06-27] VITALS: Ht 188 cm; Wt 74.8 kg
[2020-06-27 22:15] VITALS: Ht 188 cm; Wt 74.8 kg
[2020-06-27 22:49] VITALS: BP 90/60
== END 2020-06-27 22:49 | disposition left against medical advice (07) ==
LOC: ED 22:07
DX: F10.129 Alcohol abuse with intoxication, unspecified (principal); F10.20 Alcohol dependence, uncomplicated; G40.909 Epilepsy, unspecified, not intractable, without status epilepticus; I10 Essential (primary) hypertension; J45.909 Unspecified asthma, uncomplicated; M06.9 Rheumatoid arthritis, unspecified; Z76.0 Encounter for issue of repeat prescription

== ENCOUNTER 2020-07-02 01:05 | Emergency (ER) | payer OTHER ==
[~2020-07-02] VITALS: Ht 182.9 cm; Wt 74.8 kg
[2020-07-02 01:11] VITALS: Ht 182.9 cm; Wt 74.8 kg
[2020-07-02 05:53] VITALS: BP 97/61
== END 2020-07-02 05:53 | disposition home or self-care (01) ==
LOC: ED 01:05
DX: F10.129 Alcohol abuse with intoxication, unspecified (principal); I10 Essential (primary) hypertension; J45.909 Unspecified asthma, uncomplicated; K21.9 Gastro-esophageal reflux disease without esophagitis; M06.9 Rheumatoid arthritis, unspecified; Z98.890 Other specified postprocedural states
CPT/HCPCS: 82962

== ENCOUNTER → 2020-07-03 | Emergency (ER) | payer OTHER | LOC: ED 22:03 | DX: Z53.21 Procedure and treatment not carried out due to patient leaving prior to being seen by health care provider (principal) ==

== ENCOUNTER 2020-07-05 02:05 | Emergency (ER) | payer OTHER ==
[~2020-07-05] VITALS: Ht 175.3 cm; Wt 72.6 kg
[2020-07-05 02:14] VITALS: Ht 175.3 cm; Wt 72.6 kg
[2020-07-05 08:24] VITALS: BP 102/71
== END 2020-07-05 08:24 | disposition home or self-care (01) ==
LOC: ED 02:05
DX: K21.9 Gastro-esophageal reflux disease without esophagitis (principal); F10.20 Alcohol dependence, uncomplicated; J45.909 Unspecified asthma, uncomplicated; I10 Essential (primary) hypertension; F15.10 Other stimulant abuse, uncomplicated; M06.9 Rheumatoid arthritis, unspecified; Z59.0 Homelessness; Y90.9 Presence of alcohol in blood, level not specified

== ENCOUNTER 2020-07-05 20:27 | Emergency (ER) | payer OTHER ==
[~2020-07-05] VITALS: Ht 175.3 cm; Wt 74.8 kg
[2020-07-05 20:28] VITALS: Ht 175.3 cm; Wt 74.8 kg
[2020-07-05 21:19] VITALS: BP 101/83
== END 2020-07-05 21:19 | disposition other institution (70) ==
LOC: ED 20:27
DX: Z02.89 Encounter for other administrative examinations (principal)

== ENCOUNTER 2020-07-10 20:21 | Emergency (ER) | payer OTHER ==
[~2020-07-10] VITALS: Ht 182.9 cm; Wt 79.4 kg
[2020-07-10 20:31] VITALS: Ht 182.9 cm; Wt 79.4 kg
[2020-07-11 06:38] VITALS: BP 103/68
== END 2020-07-11 06:38 | disposition home or self-care (01) ==
LOC: ED 20:21
DX: F10.10 Alcohol abuse, uncomplicated (principal); I10 Essential (primary) hypertension; K21.9 Gastro-esophageal reflux disease without esophagitis; M06.9 Rheumatoid arthritis, unspecified

== ENCOUNTER 2020-07-12 12:07 | Emergency (ER) | payer OTHER | END 2020-07-12 12:13 | disposition left against medical advice (07) | LOC: ED 12:07 | DX: Z53.21 Procedure and treatment not carried out due to patient leaving prior to being seen by health care provider (principal) ==

== ENCOUNTER 2020-07-15 14:32 | Emergency (ER) | payer OTHER ==
[~2020-07-15] VITALS: Ht 182.9 cm; Wt 68.0 kg
[2020-07-15 14:46] VITALS: Ht 182.9 cm; Wt 68.0 kg
[2020-07-15 15:55] LABS: PLATELET COUNT 60 x10^3mcL (130-400); RED CELL DISTRIBUTION WIDTH 17.6 % (11.5-14.5)
[2020-07-15 15:57] LABS: CARBON DIOXIDE 26.7 mmol/L (21-32); CHLORIDE SERUM 102 mmol/L (98-107); CREATININE SERUM 0.8 mg/dL (0.7-1.3); GFR1 > 60 mL/min; GLUCOSE SERUM 82 mg/dL (74-106); POTASSIUM SERUM 3.9 mmol/L (3.5-5.1); SODIUM SERUM 139 mmol/L (136-145)
[2020-07-15 16:05] LABS: ALBUMIN 3.6 g/dL (3.4-5.0); ALKALINE PHOSPHATASE 73 U/L (46-116); ALT/SGPT 38 U/L (16-63); AST/SGOT 81 U/L (15-37); BILIRUBIN TOTAL 0.46 mg/dL (0.20-1.00); TOTAL PROTEIN, SERUM 7.2 g/dL (6.4-8.2)
[2020-07-15 16:22] LABS: BAND NEUTROPHIL 1 % (0-10); MONOCYTE 7 % (0-7); SEGMENTED NEUTROPHILS 46 % (37-75)
[2020-07-15 16:24] LABS: PLATELET MORPHOLOGY PLATELETS DECREASED; rbc morphology (normal/abnorm) ABNORMAL (NORMAL)
[2020-07-15 20:16] VITALS: BP 98/63
== END 2020-07-15 20:16 | disposition home or self-care (01) ==
LOC: ED 14:32
PROVIDERS: Emergency Medicine
DX: F10.129 Alcohol abuse with intoxication, unspecified (principal); I10 Essential (primary) hypertension; J45.909 Unspecified asthma, uncomplicated; K21.9 Gastro-esophageal reflux disease without esophagitis; M06.9 Rheumatoid arthritis, unspecified; Z98.890 Other specified postprocedural states
CPT/HCPCS: Q0092

== ENCOUNTER 2020-07-16 18:13 | Emergency (ER) | payer OTHER ==
[~2020-07-16] VITALS: Ht 170.2 cm; Wt 61.2 kg
[2020-07-16 18:14] VITALS: Ht 170.2 cm; Wt 61.2 kg
[2020-07-17 05:19] VITALS: BP 126/81
== END 2020-07-17 05:19 | disposition home or self-care (01) ==
LOC: ED 18:13
DX: F10.129 Alcohol abuse with intoxication, unspecified (principal); R41.82 Altered mental status, unspecified; I10 Essential (primary) hypertension; J45.909 Unspecified asthma, uncomplicated; K21.9 Gastro-esophageal reflux disease without esophagitis; M06.9 Rheumatoid arthritis, unspecified; Z98.890 Other specified postprocedural states
CPT/HCPCS: 82962; J7030

== ENCOUNTER 2020-07-17 22:41 | Emergency (ER) | payer OTHER ==
[~2020-07-17] VITALS: Ht 182.9 cm; Wt 72.6 kg
[2020-07-17 22:52] VITALS: Ht 182.9 cm; Wt 72.6 kg
[2020-07-18 00:34] LABS: BASOPHIL % 1.1 % (0-2)
[2020-07-18 00:35] LABS: PLATELET COUNT 56 x10^3mcL (130-400); RED CELL DISTRIBUTION WIDTH 17.2 % (11.5-14.5)
[2020-07-18 00:59] LABS: CALCIUM 8.2 mg/dL (8.5-10.1); CARBON DIOXIDE 25.7 mmol/L (21-32); CHLORIDE SERUM 103 mmol/L (98-107); CREATININE SERUM 0.8 mg/dL (0.7-1.3); GFR1 > 60 mL/min; GLUCOSE SERUM 123 mg/dL (74-106); POTASSIUM SERUM 3.1 mmol/L (3.5-5.1); SODIUM SERUM 140 mmol/L (136-145)
[2020-07-18 07:24] VITALS: BP 122/92
[2020-07-18 07:39] LABS: AMPHETAMINE QUAL UR NONE DETECTED (See below)
== END 2020-07-18 07:24 | disposition home or self-care (01) ==
LOC: ED 22:41
PROVIDERS: Emergency Medicine
DX: R07.89 Other chest pain (principal); F10.129 Alcohol abuse with intoxication, unspecified; J45.909 Unspecified asthma, uncomplicated; I10 Essential (primary) hypertension; K21.9 Gastro-esophageal reflux disease without esophagitis; M06.9 Rheumatoid arthritis, unspecified
CPT/HCPCS: 82962; G0480; J7030

== ENCOUNTER 2020-07-24 02:45 | Emergency (ER) | payer OTHER ==
[~2020-07-24] VITALS: Ht 182.9 cm; Wt 72.6 kg
[2020-07-24 02:53] VITALS: Ht 182.9 cm; Wt 72.6 kg
[2020-07-24 04:19] LABS: CALCIUM 8.5 mg/dL (8.5-10.1); CARBON DIOXIDE 33.4 mmol/L (21-32); CHLORIDE SERUM 104 mmol/L (98-107); CREATININE SERUM 0.8 mg/dL (0.7-1.3); GFR1 > 60 mL/min; GLUCOSE SERUM 87 mg/dL (74-106); POTASSIUM SERUM 4.1 mmol/L (3.5-5.1); SODIUM SERUM 143 mmol/L (136-145)
[2020-07-24 11:31] VITALS: BP 128/74
== END 2020-07-24 12:04 | disposition home or self-care (01) ==
LOC: ED 02:45
PROVIDERS: Emergency Medicine
DX: F10.239 Alcohol dependence with withdrawal, unspecified (principal); E86.0 Dehydration; J45.909 Unspecified asthma, uncomplicated; I10 Essential (primary) hypertension; M06.9 Rheumatoid arthritis, unspecified
CPT/HCPCS: 82962; G0480; J7030

== ENCOUNTER 2020-07-31 16:59 | Emergency (ER) | payer OTHER ==
[~2020-07-31] VITALS: Ht 175.3 cm; Wt 72.6 kg
[2020-07-31 17:22] VITALS: Ht 175.3 cm; Wt 72.6 kg
[2020-08-01 06:58] VITALS: BP 118/69
== END 2020-08-01 06:58 | disposition home or self-care (01) ==
LOC: ED 16:59
DX: F10.229 Alcohol dependence with intoxication, unspecified (principal); J45.909 Unspecified asthma, uncomplicated; I10 Essential (primary) hypertension; K21.9 Gastro-esophageal reflux disease without esophagitis; M06.9 Rheumatoid arthritis, unspecified

== ENCOUNTER 2020-08-07 20:12 | Emergency (ER) | payer OTHER ==
[~2020-08-07] VITALS: Ht 182.9 cm; Wt 74.8 kg
[2020-08-07 20:43] VITALS: Ht 182.9 cm; Wt 74.8 kg
[2020-08-08 11:03] VITALS: BP 128/74
== END 2020-08-08 11:03 | disposition home or self-care (01) ==
LOC: ED 20:12
DX: F10.129 Alcohol abuse with intoxication, unspecified (principal); R56.9 Unspecified convulsions; J45.909 Unspecified asthma, uncomplicated; I10 Essential (primary) hypertension; F15.10 Other stimulant abuse, uncomplicated; M06.9 Rheumatoid arthritis, unspecified; Z59.0 Homelessness; Y90.0 Blood alcohol level of less than 20 mg/100 ml
CPT/HCPCS: G0480

== ENCOUNTER 2020-08-13 13:48 | Emergency (ER) | payer OTHER ==
[~2020-08-13] VITALS: Ht 172.7 cm; Wt 59.9 kg
[2020-08-13 13:53] VITALS: Ht 172.7 cm; Wt 59.9 kg
[2020-08-13 14:46] VITALS: BP 106/74
== END 2020-08-13 14:46 | disposition other institution (70) ==
LOC: ED 13:48
DX: Z02.89 Encounter for other administrative examinations (principal)

== ENCOUNTER 2020-08-16 17:10 | Emergency (ER) | payer OTHER ==
[~2020-08-16] VITALS: Ht 170.2 cm; Wt 68.0 kg
[2020-08-16 17:14] VITALS: BP 100/54; Ht 170.2 cm; Wt 68.0 kg
== END 2020-08-16 19:45 | disposition left against medical advice (07) ==
LOC: ED 17:10
DX: F10.129 Alcohol abuse with intoxication, unspecified (principal); I10 Essential (primary) hypertension; J45.909 Unspecified asthma, uncomplicated; M06.9 Rheumatoid arthritis, unspecified

== ENCOUNTER 2020-08-17 08:48 | Emergency (ER) | payer OTHER ==
[~2020-08-17] VITALS: Ht 182.9 cm; Wt 83.9 kg
[2020-08-17 08:59] VITALS: Ht 182.9 cm; Wt 83.9 kg
[2020-08-17 09:15] VITALS: BP 124/87
== END 2020-08-17 09:15 | disposition other institution (70) ==
LOC: ED 08:48
DX: Z02.89 Encounter for other administrative examinations (principal)

== ENCOUNTER 2020-08-27 05:47 | Emergency (ER) | payer OTHER ==
[~2020-08-27] VITALS: Ht 182.9 cm; Wt 70.3 kg
[2020-08-27 05:58] VITALS: Ht 182.9 cm; Wt 70.3 kg
[2020-08-27 07:54] LABS: BASOPHIL % 1.6 % (0-2); PLATELET COUNT 142 x10^3mcL (130-400); RED CELL DISTRIBUTION WIDTH 17.4 % (11.5-14.5)
[2020-08-27 07:57] LABS: CALCIUM 8.4 mg/dL (8.5-10.1); CHLORIDE SERUM 104 mmol/L (98-107); CREATININE SERUM 0.6 mg/dL (0.7-1.3); GFR1 > 60 mL/min; GLUCOSE SERUM 93 mg/dL (74-106); POTASSIUM SERUM 3.8 mmol/L (3.5-5.1); SODIUM SERUM 144 mmol/L (136-145)
[2020-08-27 08:02] LABS: ALBUMIN 3.7 g/dL (3.4-5.0); ALKALINE PHOSPHATASE 79 U/L (46-116); ALT/SGPT 53 U/L (16-63); AST/SGOT 99 U/L (15-37); BILIRUBIN TOTAL 0.4 mg/dL (0.20-1.00); TOTAL PROTEIN, SERUM 7.3 g/dL (6.4-8.2)
[2020-08-27 11:11] VITALS: BP 154/99
== END 2020-08-27 11:11 | disposition home or self-care (01) ==
LOC: ED 05:47
PROVIDERS: Emergency Medicine
DX: R07.89 Other chest pain (principal); K21.9 Gastro-esophageal reflux disease without esophagitis; F41.9 Anxiety disorder, unspecified; J45.909 Unspecified asthma, uncomplicated; I10 Essential (primary) hypertension; M06.9 Rheumatoid arthritis, unspecified
CPT/HCPCS: G0480; Q0092

== ENCOUNTER 2020-08-27 14:12 | Emergency (ER) | payer OTHER ==
[2020-08-27 15:17] LABS: BASOPHIL % 1.1 % (0-2); PLATELET COUNT 161 x10^3mcL (130-400)
[2020-08-27 15:40] LABS: CALCIUM 8.3 mg/dL (8.5-10.1); CARBON DIOXIDE 27.2 mmol/L (21-32); CHLORIDE SERUM 98 mmol/L (98-107); CREATININE SERUM 0.5 mg/dL (0.7-1.3); GFR1 > 60 mL/min; GLUCOSE SERUM 94 mg/dL (74-106); POTASSIUM SERUM 3.8 mmol/L (3.5-5.1); SODIUM SERUM 137 mmol/L (136-145)
[2020-08-27 15:46] LABS: ALBUMIN 3.6 g/dL (3.4-5.0); ALKALINE PHOSPHATASE 73 U/L (46-116); ALT/SGPT 49 U/L (16-63); AST/SGOT 102 U/L (15-37); BILIRUBIN TOTAL 0.51 mg/dL (0.20-1.00); TOTAL PROTEIN, SERUM 7.3 g/dL (6.4-8.2)
[2020-08-28 04:37] VITALS: BP 145/87
== END 2020-08-28 03:27 | disposition home or self-care (01) ==
LOC: ED 14:12
PROVIDERS: Emergency Medicine
DX: F10.129 Alcohol abuse with intoxication, unspecified (principal); R07.89 Other chest pain; K21.9 Gastro-esophageal reflux disease without esophagitis; J45.909 Unspecified asthma, uncomplicated; I10 Essential (primary) hypertension; M06.9 Rheumatoid arthritis, unspecified; Z98.890 Other specified postprocedural states
CPT/HCPCS: G0480; J7030; Q0092

== ENCOUNTER 2020-08-28 19:15 | Emergency (ER) | payer OTHER ==
[~2020-08-28] VITALS: Ht 167.6 cm; Wt 72.6 kg
[2020-08-28 20:00] VITALS: BP 103/74
== END 2020-08-29 05:40 | disposition home or self-care (01) ==
LOC: ED 19:15
DX: F10.129 Alcohol abuse with intoxication, unspecified (principal); J45.909 Unspecified asthma, uncomplicated; I10 Essential (primary) hypertension; M06.9 Rheumatoid arthritis, unspecified; Z13.9 Encounter for screening, unspecified; Z98.890 Other specified postprocedural states
CPT/HCPCS: 82962

== ENCOUNTER 2020-08-29 13:04 | Emergency (ER) | payer OTHER ==
[~2020-08-29] VITALS: Ht 182.9 cm; Wt 72.6 kg
[2020-08-29 13:09] VITALS: Ht 182.9 cm; Wt 72.6 kg
[2020-08-29 15:00] VITALS: BP 108/68
== END 2020-08-29 17:49 | disposition home or self-care (01) ==
LOC: ED 13:04
DX: R53.1 Weakness (principal); F10.129 Alcohol abuse with intoxication, unspecified; J45.909 Unspecified asthma, uncomplicated; I10 Essential (primary) hypertension; M06.9 Rheumatoid arthritis, unspecified; K21.9 Gastro-esophageal reflux disease without esophagitis
CPT/HCPCS: Q0162